=== PATIENT | male | born 1935 | race Caucasian/White ===

== ENCOUNTER → 2018-03-01 14:36 | Outpatient (CLI) | payer MEDICARE, OTHER, SELFPAY | PROVIDERS: PCP Internal Medicine; Visit Provider Physician Assistant | DX: R30.0 Dysuria (principal) | CPT/HCPCS: 87077; 87086; 87186 ==

== ENCOUNTER → 2018-03-13 12:15 | Outpatient (CLI) | payer MEDICARE, OTHER, SELFPAY ==
--- NOTE | 2018-03-13 | DI.RAD.S_ITS ---
PROCEDURE: XR CHEST 2V INDICATIONS: SOB TECHNIQUE: 2 views of the chest were acquired. COMPARISON: [facility], CHEST 2 VIEW, 05/09/2014, 13:17. [facility], CHEST 1 VIEW, 01/20/2009, 9:41. FINDINGS: Surgical changes and devices: Pacemaking device and dual chamber leads appear normal. Lungs and pleura: No pleural effusions or pneumothorax. Lungs are edematous, with a slight subpulmonic left effusion. Mediastinum: Mediastinal contours are normal. Heart size is at the upper limits of normal. Bones and chest wall: No suspicious bony abnormalities. Soft tissues appear unremarkable. IMPRESSION: Pacemaking device and dual chamber leads appear normal. Generalized pulmonary edema pattern, slight subpulmonic left effusion. Heart size at the upper limits of normal. Please note that atypical pneumonia also could produce this appearance. Dictated by: Nikos Padron M.D. on 03/13/2018 at 12:32 Approved by: Nikos Padron M.D. on 03/13/2018 at 12:33
[2018-03-13 15:08] LABS: Alanine Aminotransferase 40 IU/L (21-72); Albumin 3.8 g/dL (3.5-5.0); Albumin Globulin Ratio 1.4 (1.0-2.8); Alkaline Phosphatase 68 U/L (38-126); Aspartate Aminotransferase 31 IU/L (17-59); BUN Creatinine Ratio 24.6 (6-22); Bilirubin Total 0.7 mg/dL (0.2-1.3); Blood Urea Nitrogen 32 mg/dL (9-20); Calcium 10.1 mg/dL (8.4-10.2); Carbon Dioxide 23 mmol/L (22-32); Chloride 97 mmol/L (98-107); Estimated Glomerular Filt Rate 52.7 mL/min (>60); Globulin 2.8 g/dL (1.7-4.1); Glucose 126 mg/dL (80-110); HEMOLYSIS < 15 (0-50); Potassium 4.7 mmol/L (3.4-5.1); Sodium 133 mmol/L (137-145); Total Protein 6.6 g/dL (6.3-8.2)
== END ==
PROVIDERS: PCP Internal Medicine; Visit Provider Student in an Organized Health Care Education/Training Program
DX: R06.02 Shortness of breath (principal); Z95.0 Presence of cardiac pacemaker
CPT/HCPCS: 71046; 80053; 83880

== ENCOUNTER → 2018-03-17 09:34 | Outpatient (CLI) | payer MEDICARE, OTHER, SELFPAY ==
--- NOTE | 2018-03-17 | DI.ECHO.S_ITS ---
[facility] +---------+ : : [address] : [place] : : : : [id number] : : : : Phone: [phone]+ Echocardiogram Report + + :Name: ANDREW CANCHOLA Study Date: 03/17/2018 Height: 69 in : :[facility] Weight: 155 lb : : Gender: Male BSA: 1.9 m2 : :: 1935 Age: 82 yrs BP: 112/64 mmHg: :Reason For Study: HEART FAILURE : :History: CABG : :Ordering Physician: : :Ry Ash Performed By: Rose Bacon : + + Interpretation Summary The left ventricle is normal in size. The ejection fraction is estimated to be 30-35%. There has been no significant change since the previous study. There is extensive thinning and akinesis of the mid and distal septum, extending to the apex and into the apical portion of the anterior wall. Inferior wall is akinetic as well.This appears unchanged from the previous study. The right ventricle is normal in size and function. There is a pacemaker lead in the right ventricle. There is mild to moderate mitral regurgitation. Compared to the prior echo study, there has been no change in the severity of mitral regurgitation. There is mild to moderate aortic regurgitation. Compared to the prior echo study, there has been no change in the severity of aortic regurgitation. There is moderate to severe tricuspid regurgitation. Compared to the prior echo exam, there has been an increase in TR severity. The right ventricular systolic pressure is estimated at 44 mmHg assuming a right atrial pressure of 15 mm Hg. Compared to the prior echo exam, there has been an increase in the severity of pulmonary hypertension. Procedure: A two-dimensional transthoracic echocardiogram with color flow and Doppler was performed. The study quality was technically adequate. Comparison is made with the echocardiogram of 12/12/2016. The patient has a paced rhythm. Left Ventricle: The left ventricle is normal in size. Left ventricular wall thickness is normal. Proximal septal thickening is noted. There is no thrombus. The ejection fraction is estimated to be 30-35%. There has been no significant change since the previous study. There is extensive thinning and akinesis of the mid and distal septum, extending to the apex and into the apical portion of the anterior wall. Inferior wall is akinetic as well.This appears unchanged from the previous study. Diastolic function could not be accurately assessed due to paced rhythm. Right Ventricle: There is a pacemaker lead in the right ventricle. The right ventricle is normal in size and function. Atria: The left atrium is severely dilated. The left atrium has mildly increased in size since the prior echo exam. The right atrium is mildly dilated. There is no Doppler evidence for an interatrial shunt. Mitral Valve: The mitral valve leaflets are slightly calcified. There is mild mitral annular calcification. There is mild to moderate mitral regurgitation. Compared to the prior echo study, there has been no change in the severity of mitral regurgitation. Aortic Valve: The aortic valve is trileaflet. The aortic valve is slightly calcified. There is no aortic valve stenosis. There is mild to moderate aortic regurgitation. Compared to the prior echo study, there has been no change in the severity of aortic regurgitation. Tricuspid Valve: Tricuspid leaflets are thickened. There is moderate to severe tricuspid regurgitation. The right ventricular systolic pressure is estimated at 44 mmHg assuming a right atrial pressure of 15 mm Hg. Compared to the prior echo exam, there has been an increase in TR severity. Compared to the prior echo exam, there has been an increase in the severity of pulmonary hypertension. Pulmonic Valve: The pulmonic valve is not well visualized. There is trace pulmonic regurgitation. Great Vessels: The aortic root is normal size. The ascending aorta is mildly enlarged. The aortic arch is normal in size. The IVC is dilated (diameter is greater than 2.1 cm) yet it collapses greater than 50% with a sniff. This suggests a right atrial pressure of 8 mm Hg. Pericardium/ Pleura There is no pericardial effusion. MMode/2D Measurements & Calculations LVIDd: 4.6 cm LVOT diam: 2.1 cm LVIDs: 3.9 cm Ao root diam: 3.7 cm FS: 14.5 % Aortic Jxn: 3.0 cm EPSS: 1.1 cm asc Aorta Diam: 3.5 cm IVSd: 1.0 cm Ao Arch Diam (Prox Trans): 2.3 cm LVPWd: 0.93 cm LV kennedy. diameter/BSA (cm/m^2): 2.5 LV sys. diameter/BSA (cm/m^2): 2.1 LA A2 area: 25.9 cm2 RA long axis: 5.0 cm LA A4 area: 26.2 cm2 RA area: 20.6 cm2 LA length (vol): 6.1 cm RA vol: 72.9 ml LA vol: 93.9 ml RA : 39.3 ml/m2 LA vol index: 50.6 ml/m2 IVC diam: 2.2 cm RVD1 (basal): 3.6 cm RVD2 (mid): 2.5 cm TAPSE: 1.8 cm Doppler Measurements & Calculations Ao V2 max: 121.7 cm/sec LVOT Max Josh: 72.9 cm/sec Ao V2 mean: 84.2 cm/sec LV V1 max P.1 mmHg Ao max P.9 mmHg LV V1 VTI: 13.2 cm Ao mean P.2 mmHg MADAY(I,D): 2.0 cm2 Ao V2 VTI: 21.5 cm MADAY(V,D): 2.0 cm2 sev ratio: 0.61 MADAY indexed to BSA (cm^2/m^2): 1.1 AI P1/2t: 393.7 msec AI dec slope: 217.9 cm/sec2 MV E max josh: 98.0 cm/sec TR max josh: 300.3 cm/sec MV dec time: 0.14 sec TR max P.1 mmHg MV P1/2t: 40.6 msec PA V2 max: 53.8 cm/sec PA V2 mean: 29.4 cm/sec PA mean P.41 mmHg PA Accel Time: 0.08 sec MV P1/2t max josh: 99.1 cm/sec MR PISA radius: 0.50 cm MVA(P1/2t): 5.4 cm2 Reading Physician:PM
== END ==
PROVIDERS: PCP Internal Medicine; Visit Provider Internal Medicine
DX: I08.3 Combined rheumatic disorders of mitral, aortic and tricuspid valves (principal); I50.9 Heart failure, unspecified; Z95.1 Presence of aortocoronary bypass graft; Z95.0 Presence of cardiac pacemaker; I27.20 Pulmonary hypertension, unspecified
CPT/HCPCS: 93306

== ENCOUNTER 2019-01-25 14:00 | Outpatient (RCR) | payer MEDICARE, OTHER, SELFPAY | END 2019-02-01 09:49 | LOC: CAR 14:00 | PROVIDERS: PCP Internal Medicine; Visit Provider Internal Medicine | DX: I50.22 Chronic systolic (congestive) heart failure (principal) | CPT/HCPCS: 93798 ==

== ENCOUNTER → 2020-05-04 15:35 | Outpatient (ROUT) | payer MEDICARE, OTHER, SELFPAY ==
[2020-05-04 16:34] LABS: BUN Creatinine Ratio 21.9 (6-22); Blood Urea Nitrogen 42 mg/dL (9-20); Calcium 10.3 mg/dL (8.4-10.2); Carbon Dioxide 31 mmol/L (22-32); Chloride 96 mmol/L (98-107); Estimated Glomerular Filt Rate 33.5 mL/min (>60); Glucose 95 mg/dL (80-110); HEMOLYSIS < 15 (0-50); Potassium 4.4 mmol/L (3.4-5.1); Sodium 134 mmol/L (137-145)
[2020-05-05 16:31] LABS: Parathyroid Hormone Int 27 pg/mL (15-65)
== END ==
PROVIDERS: PCP Internal Medicine; Visit Provider Internal Medicine
DX: N18.9 Chronic kidney disease, unspecified (principal)
CPT/HCPCS: 80048; 83970

== ENCOUNTER → 2020-06-21 18:40 | Outpatient (ROUT) | payer MEDICARE, OTHER, SELFPAY | PROVIDERS: PCP Internal Medicine; Visit Provider Family Medicine | DX: R30.0 Dysuria (principal); N30.00 Acute cystitis without hematuria | CPT/HCPCS: 87077; 87086; 87186 ==

== ENCOUNTER → 2020-12-26 18:58 | Outpatient (ROUT) | payer MEDICARE, SELFPAY ==
[2020-12-26 22:19] LABS: Clostridium Difficile Tox PCR Negative for C. diff
== END ==
PROVIDERS: Visit Provider Internal Medicine
DX: R19.7 Diarrhea, unspecified (principal)
CPT/HCPCS: 87045; 87147; 87177; 87493; 87899

== ENCOUNTER → 2021-09-11 15:51 | Outpatient (CLI) | payer OTHER, SELFPAY ==
--- NOTE | 2021-09-11 16:27 | DI.ECHO.S_ITS ---
:[facility] ReadingLocation: Weight: 150 lb : : Gender: Male BSA: 1.8 m2 : :: 1935 Age: 86 yrs BP: 127/76 mmHg: :Reason For Study: SYSTOLIC/DIASTOLIC HEART FAILURE : :Ordering Physician: REGINALDO : :SILVINO Performed By: Inge Marinelli : :Referring: SILVINO HAIR : + + Interpretation Summary The left ventricle is normal in size and wall thickness. The ejection fraction is estimated to be 30-35%. There is septal thinning and akinesis from base to apical. There is severe inferior wall hypokinesis. No signifcant change from last exam. The right ventricle is normal in size and function. The right ventricular systolic pressure is estimated to be at least 46 mmHg based on an estimated right atrial pressure of 8 mm Hg. There is moderate tricuspid regurgitation. There is mild aortic regurgitation. There is trace to mild mitral regurgitation. overall severity of valvular disease has slightly improved or remianed the same at the very least, when compared to the 2018 exam. The left atrium is severely dilated. Procedure: A two-dimensional transthoracic echocardiogram with color flow and Doppler was performed. The study quality was technically adequate. Comparison is made with the echocardiogram of 03/17/2018. The patient has a paced rhythm. The heart rate ranged between 80 bpm during the study. Left Ventricle: The left ventricle is normal in size and wall thickness. The ejection fraction is estimated to be 30-35%. There is septal thinning and akinesis from base to apical. There is severe inferior wall hypokinesis. No signifcant change from last exam. Diastolic function could not be accurately assessed due to paced rhythm. Right Ventricle: The right ventricle is normal in size and function. Atria: The left atrium is severely dilated. The right atrium is mildly dilated. There is no Doppler evidence for an interatrial shunt. Mitral Valve: The mitral valve leaflets appear mildly thickened, but open well. There is trace mitral regurgitation. Aortic Valve: The aortic valve is trileaflet. The aortic valve is mildly calcified. There is no aortic valve stenosis. There is mild aortic regurgitation. Tricuspid Valve: The tricuspid valve leaflets are thin and pliable. The right ventricular systolic pressure is estimated to be at least 46 mmHg based on an estimated right atrial pressure of 8 mm Hg. There is moderate tricuspid regurgitation. Pulmonic Valve: The pulmonic valve leaflets are thin and pliable; valve motion is normal. There is a trace or physiologic amount of pulmonic regurgitation. Great Vessels: The aortic root is normal size. The ascending aorta could not be visualized. The IVC is dilated (diameter is greater than 2.1 cm) yet it collapses greater than 50% with a sniff. This suggests a right atrial pressure of 8 mm Hg. Pericardium/ Pleura There is no pericardial effusion. There is no pleural effusion. MMode/2D Measurements & Calculations LVIDd: 4.6 cm LVOT diam: 2.1 cm LVIDs: 3.0 cm Ao root diam: 3.5 cm FS: 33.8 % IVSd: 1.0 cm LVPWd: 0.90 cm LV kennedy. diameter/BSA (cm/m^2): 2.5 LV sys. diameter/BSA (cm/m^2): 1.6 LA A2 area: 30.2 cm2 RA long axis: 5.3 cm LA A4 area: 26.1 cm2 RA area: 19.8 cm2 LA length (vol): 7.1 cm RA vol: 63.1 ml LA vol: 94.6 ml RA : 34.5 ml/m2 LA vol index: 51.8 ml/m2 IVC diam: 2.1 cm RVD1 (basal): 3.5 cm TAPSE: 1.7 cm Doppler Measurements & Calculations Ao V2 max: 137.3 cm/sec LVOT Max Josh: 62.6 cm/sec Ao V2 mean: 100.2 cm/sec LV V1 max P.6 mmHg Ao max P.5 mmHg LV V1 VTI: 11.7 cm Ao mean P.4 mmHg MADAY(I,D): 1.7 cm2 Ao V2 VTI: 24.9 cm MADAY(V,D): 1.6 cm2 sev ratio: 0.47 MADAY indexed to BSA (cm^2/m^2): 0.91 MV E max josh: 89.8 cm/sec TR max josh: 307.0 cm/sec MV A max josh: 0.83 cm/sec TR max P.7 mmHg MV E/A: 107.8 PA pr(Accel): 46.5 mmHg Med Peak E' Josh: 6.8 cm/sec E/E' med: 13.2 Lat Peak E' Josh: 6.7 cm/sec E/E' lat: 13.4 E/e' average: 13.3 MV dec time: 0.22 sec SV(LVOT): 41.5 ml Reading Physician:TONY
== END ==
PROVIDERS: PCP Internal Medicine; Referring Provider Internal Medicine Cardiovascular Disease; Visit Provider Internal Medicine Cardiovascular Disease
DX: I50.42 Chronic combined systolic (congestive) and diastolic (congestive) heart failure (principal); I08.3 Combined rheumatic disorders of mitral, aortic and tricuspid valves
CPT/HCPCS: 93306

== ENCOUNTER 2021-09-11 16:52 | Emergency (ER) | payer OTHER, SELFPAY ==
[2021-09-11 17:04] VITALS: BP 137/62; PULSE 82; RESP 20; TEMP 36.9; O2SAT 96
--- NOTE | 2021-09-11 17:07 | DI.CT.S_ITS ---
PROCEDURE: CT CERVICAL SPINE WO CON INDICATIONS: fall TECHNIQUE: Noncontrast 3 mm thick sections acquired from the skull base to the T4 level. Sagittal and coronal reformats were then constructed. For radiation dose reduction, the following was used: automated exposure control, adjustment of mA and/or kV according to patient size. COMPARISON: None. FINDINGS: Image quality: Excellent. Bones: Vertebral body height is preserved. Multilevel degenerative disc space narrowing and hypertrophic facet joints are present in the mid cervical spine resulting in grade 1 and degenerative anterior spondylolisthesis at C4-5. There is reversal normal cervical lordosis. No evidence of fracture or traumatic malalignment. Degenerative moderate central stenosis at C3-4 and bilateral foraminal stenosis at C6-7 Incidental note is made of chronic enlargement of the right T2-3 neural foramen measuring up to 1.2 cm in diameter Soft tissues: Prevertebral soft tissues are normal in thickness. No paravertebral hematomas. No apical pneumothoraces. IMPRESSION: 1. No evidence of fracture or traumatic malalignment 2. 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 Incidental right T2-3 foraminal enlargement. Differential would include nerve sheath tumor versus large perineural cyst. Consider follow-up nonemergent MRI with contrast Approved by: Mark Kent M.D. on 09/11/2021 at 16:43
--- NOTE | 2021-09-11 17:07 | DI.CT.S_ITS ---
PROCEDURE: CT HEAD/BRAIN WO CON INDICATIONS: fall TECHNIQUE: Helical axial CT of the brain was obtained without contrast and reformatted in multiple planes. Radiation dose reduction was achieved utilizing automated exposure control and/or adjustment of the dose parameters according to patient's size COMPARISON: None. FINDINGS: Image quality: Excellent. CSF spaces: Basal cisterns are patent. No extra-axial fluid collections. Ventricles are normal in size and shape. Brain: No midline shift. No intracranial masses or hemorrhage. Hanna-white matter interface is normal. Moderate cerebral and cerebellar volume loss with multifocal white matter chronic ischemic change noted. Moderate calcified atherosclerotic plaque noted involving the cavernous portions of both internal carotid arteries. Skull and face: Calvarium and visualized facial bones are intact, without suspicious lesions. Sinuses: Complete opacification and partially visualized right maxillary sinus with wall thickening and bulging of sinus contents into the nasal vault. IMPRESSION: 1. Atrophy and chronic ischemic change without acute hemorrhage or mass effect. 2. 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 Differential includes mucoscele sinonasal polyposis. Consider nonemergent CT sinus Approved by: Mark Kent M.D. on 09/11/2021 at 16:48
== END 2021-09-11 19:29 | disposition left against medical advice (07) ==
PROVIDERS: Emergency Provider Emergency Medicine; PCP Internal Medicine
DX: Z53.21 Procedure and treatment not carried out due to patient leaving prior to being seen by health care provider (principal)
CPT/HCPCS: 70450; 72125; 93306; 99283

== ENCOUNTER → 2021-09-23 16:08 | Outpatient (CLI) | payer MEDICARE, SELFPAY ==
[2021-09-23 17:21] LABS: COVID19 -Nasal RAPID Negative (Negative)
== END ==
PROVIDERS: PCP Internal Medicine; Visit Provider Nurse Practitioner Family
DX: Z20.822 Contact with and (suspected) exposure to COVID-19 (principal)
CPT/HCPCS: 87635

== ENCOUNTER → 2021-09-23 16:27 | Outpatient (CLI) | payer OTHER, SELFPAY ==
--- NOTE | 2021-09-23 16:28 | DI.RAD.S_ITS ---
PROCEDURE: XR CHEST 2V INDICATIONS: cough TECHNIQUE: 2 views of the chest were acquired. COMPARISON: [facility], CR, XR CHEST 2V, 03/13/2018, 11:54. FINDINGS: Surgical changes and devices: Left-sided cardiac pacer device is in place. Lungs and pleura: Diffuse interstitial prominence. Mild blunting of the bilateral costophrenic angles likely representing small pleural effusions. Suggestion of mild pulmonary congestion. No focal consolidations. No pneumothorax. Mediastinum: Mediastinal contours are stable. Heart size is enlarged. Bones and chest wall: No suspicious bony abnormalities. Soft tissues appear unremarkable. IMPRESSION: Cardiomegaly with findings suggestive of pulmonary edema/CHF. Concurrent infectious/inflammatory process not excluded if clinically appropriate. No focal consolidation seen. Dictated by: Arron Roberson M.D. on 09/23/2021 at 16:03 Approved by: Arron Roberson M.D. on 09/23/2021 at 16:05
== END ==
PROVIDERS: PCP Internal Medicine; Referring Provider Nurse Practitioner Family; Visit Provider Nurse Practitioner Family
DX: R05.9 Cough, unspecified (principal); I51.7 Cardiomegaly; Z20.822 Contact with and (suspected) exposure to COVID-19
CPT/HCPCS: 71046; 87635

== ENCOUNTER 2021-09-25 10:57 | Emergency (ER) | payer OTHER, SELFPAY ==
[2021-09-25] VITALS (9 sets, daily range): BP systolic 134; BP diastolic 60–64; PULSE 79–81; RESP 18–31; TEMP 36.9; O2SAT 96–98; BMI 23.3
--- NOTE | 2021-09-25 11:14 | DI.RAD.S_ITS ---
PROCEDURE: XR CHEST 1V INDICATIONS: short of breath TECHNIQUE: One view of the chest was acquired. COMPARISON: [facility], CR, XR CHEST 2V, 09/23/2021, 16:24. FINDINGS: Surgical changes and devices: Cardiac defibrillator is unchanged. Lungs and pleura: There is mild diffuse interstitial prominence. No pleural effusion. Mediastinum: Mediastinal contours appear normal. Heart size is markedly enlarged, as before. Bones and chest wall: No suspicious bony lesions. Overlying soft tissues appear unremarkable. IMPRESSION: Mild interstitial prominence and cardiomegaly suggesting fluid overload. Dictated by: Estrella Aguila M.D. on 09/25/2021 at 12:04 Approved by: Estrella Aguila M.D. on 09/25/2021 at 12:04
[2021-09-25 11:46] LABS: Add Manual Diff / Slide Review NO; Basophils Absolute Auto 0 /uL (0-100); Basophils Percent Auto 0.4 % (0-2); Eosinophils Absolute Auto 100 /uL (0-450); Hematocrit 34.8 % (41-53); Hemoglobin 11.7 g/dL (13.5-17.5); Lymphocytes Absolute Auto 800 /uL (1100-4500); Lymphocytes Percent Auto 13.3 % (25-40); Mean Corpuscular HGB Conc 33.6 % (30-36); Mean Corpuscular Volume 95.3 fL (80-100); Monocytes Absolute Auto 1200 /uL (0-900); Monocytes Percent Auto 21.1 % (3-14); Neutrophils Absolute Auto 3700 /uL (1500-7000); Neutrophils Percent Auto 64.2 % (50-75); Platelet Count 226 X10^3/uL (150-400); Red Blood Cell Count 3.65 X10^6/uL (4.5-5.9); Red Cell Distribution Width 13.9 % (11.6-14.8); White Blood Cell Count 5.7 X10^3/uL (4.5-11.0)
--- NOTE | 2021-09-25 11:49 | ED_ITS ---
HPI - Chest Pain General Chief Complaint: Chest Pain Stated Complaint: Bad cough, has congestive heart failure Time Seen by Provider: 09/25/21 11:07 Source: patient and family Mode of arrival: Family Vehicle Limitations: no limitations History of Present Illness HPI narrative: Patient is an 86-year-old male with history of atrial fibrillation on Eliquis presenting today with shortness of breath and upper respiratory symptoms. He has had cough and runny nose for about 5 days. He was seen at the walk-in clinic 2 days ago tested for COVID and has chest x-ray which did show congestive heart failure and his COVID was negative. states that he actually seems to be doing better but wanted further evaluation for the congestive heart failure which he says he does not have. He tries to lay down at night to sleep eat coughs. He has some shortness of breath with exertion. He does not have any chest pain or palpitations. No fever or chills. Related Data Home Medications Medication Instructions Recorded Confirmed ASPIRIN (Aspirin *) 81 mg PO Q DAY #0 01/20/09 09/23/21 [MULTI VIT.] Q DAY #0 01/20/09 09/23/21 losartan 50 mg tablet 50 mg PO QDAY #0 01/01/17 09/23/21 Curcumonoids PO 10/13/20 09/23/21 Icarin PO 10/13/20 09/23/21 S Miraforta PO 10/13/20 09/23/21 allopurinol 100 mg tablet 100 mg PO DAILY 10/13/20 09/23/21 apixaban 2.5 mg tablet (Eliquis) 2.5 mg PO BID 10/13/20 09/23/21 ascorbic acid (vitamin C) 1,000 mg 1 g PO BID tab 10/13/20 09/23/21 tablet atorvastatin 20 mg tablet 20 mg PO DAILY 10/13/20 09/23/21 carvedilol 12.5 mg tablet 12.5 mg PO BID 10/13/20 09/23/21 cholecalciferol (vitamin D3) 125 125 mcg PO DAILY 10/13/20 09/23/21 mcg (5,000 unit) capsule clindamycin HCl 300 mg capsule 300 mg PO Q6H 10/13/20 09/23/21 coenzyme Q10 100 mg capsule 100 mg PO DAILY 10/13/20 09/23/21 (CoQ-10) hydroxychloroquine 200 mg tablet 200 mg PO DAILY 10/13/20 09/23/21 isosorbide dinitrate 30 mg tablet 30 mg PO DAILY tab 10/13/20 09/23/21 letrozole 2.5 mg tablet 2.5 mg PO DAILY 10/13/20 09/23/21 lipid controller PO 10/13/20 09/23/21 mecobalamin (vitamin B12) 10,000 mcg SUBCUT 10/13/20 09/23/21 mcg solution for injection mecobalamin (vitamin B12) 5,000 100 mcg PO DAILY ea 10/13/20 09/23/21 mcg lozenge metformin 500 mg tablet 500 mg PO DAILY 10/13/20 09/23/21 omega-3 fatty acids 1,000 mg 1,000 mg PO DAILY 10/13/20 09/23/21 capsule (Fish Oil Concentrate) prasterone (dhea) 25 mg capsule 25 mg PO .weekly cap 10/13/20 09/23/21 (DHEA) probenecid 500 mg tablet 500 mg PO BID 10/13/20 09/23/21 resveratrol 100 mg capsule mg PO 10/13/20 09/23/21 spironolactone 25 mg tablet 25 mg PO DAILY 10/13/20 09/23/21 terbinafine HCl 250 mg tablet 250 mg PO DAILY 10/13/20 09/23/21 testosterone 50 mg/5 gram (1 %) 50 mg TRANSDERMAL DAILY 10/13/20 09/23/21 transdermal gel thyroid 60 mg tablet mg PO 10/13/20 09/23/21 torsemide 20 mg tablet 20 mg PO DAILY 10/13/20 09/23/21 Previous Rx's Medication Instructions Recorded finasteride 5 mg tablet 5 mg PO DAILY #90 tab 10/17/20 tamsulosin 0.4 mg capsule 0.4 mg PO BEDTIME #90 cap 04/24/21 benzonatate 100 mg capsule 100 mg PO BID PRN #20 cap 09/23/21 Allergies Allergy/AdvReac Type Severity Reaction Status Date / Time dextran 40 [DEXTRAN 40] Allergy Unknown Verified 09/25/21 11:22 morphine [MORPHINE] Allergy Unknown Verified 09/25/21 11:22 Review of Systems Review of Systems Narrative: GENERAL: Denies chills, fatigue, malaise, fever, sweats, travel HEENT: Denies sinus pain, ear pain, sore throat, difficulty swallowing, neck pain RESPIRATORY: See HPI CARDIOVASCULAR: See HPI GASTROINTESTINAL: Denies nausea, vomiting, abdominal pain, diarrhea, constipation, melena. : Denies dysuria, frequency, incontinence, hematuria, urinary retention, flank pain. MUSCULOSKELETAL: Denies weakness, joint pain, or bony pain SKIN: No rash, no erythema, no pruritus NEUROLOGIC: Denies weakness, dizziness, headache, numbness, change in speech, confusion PSYCHIATRIC: No concerning psychosocial issues. 12 point review of systems is negative except for those stated above and HPI Patient History Medical History (Updated 09/25/21 @ 14:31 by Meg Vieira DO) BPH (benign prostatic hyperplasia) BPH w urinary obs/LUTS Congestive heart failure Coronary heart disease Elevated PSA Gout Heart attack Hypertension Surgical History (System 09/24/21 @ 07:34 by Aminta Cates) History of back surgery History of circumcision History of permanent cardiac pacemaker placement History of prostate biopsy Family History Father Prostate cancer Coronary artery disease Social History (System 09/24/21 @ 07:34 by Aminta Cates) marital status: number of children: 3 occupational status: previously employed Smoking Status: Never smoker alcohol intake: current substance use type: does not use caffeine: Yes Smoking Status: Never smoker alcohol intake frequency: 0-2 drinks per day Substance Use Type: does not use Exam Initial Vital Signs Initial Vital Signs: Vital Signs Pulse Rate 80 09/25/21 11:10 Respiratory Rate 22 09/25/21 11:10 Blood Pressure 134/64 09/25/21 11:10 Pulse Oximetry 98 09/25/21 11:10 GENERAL: Alert 86-year-old male in no acute] distress. HEENT: Head atraumatic,EOMI, pupils reactive, face symmetric, [moist] mucous membranes CARDIOVASCULAR: Regular rate and rhythm without murmurs, rubs or gallops. RESPIRATORY: Slightly decreased bilaterally speaks in full sentences without any difficulty ABDOMEN: Soft, nontender. Normoactive bowel sounds all 4 quadrants. No guarding or rebound. EXTREMITIES: Normal range of motion, no clubbing or edema. Neurovascularly intact NEUROLOGICAL: Alert and oriented x4.Normal gait and speech. SKIN: Warm, dry, no laceration, no petechiae, no rashes or lesions. Course Orders Ordered: ED Orders 09/25/21 11:13 Consult to Respiratory Therapy Evaluate & Treat 09/25/21 11:14 XR chest 1V Stat 09/25/21 11:16 EKG-12 Lead Stat 09/25/21 11:34 Complete Blood Count AUTO DIFF Stat Comprehensive Metabolic Panel Stat Lactate (Lactic Acid) Stat Magnesium Stat NT-proBNP (BNP-Adult 18+) Stat Partial Thromboplastin Time Stat Prothrombin Time INR Stat Troponin & CK Cardiac Panel Stat 09/25/21 13:30 Trop I [Troponin I] Stat 09/25/21 13:38 Urine Microscopic Stat 09/25/21 13:40 EKG-12 Lead Routine EKG-12 Lead Routine Discontinued Medications Furosemide (Furosemide 40 Mg/4 Ml Vial) 40 mg IV NOW ONE Stop: 09/25/21 12:28 Last Admin: 09/25/21 12:34 Dose: 40 mg Documented by: LEONARDO Vital Signs Vital signs: Vital Signs - 8 hr 09/25/21 11:30 09/25/21 12:00 09/25/21 12:30 Pulse Rate 80 80 79 Respiratory Rate 20 Blood Pressure Pulse Oximetry 97 96 98 09/25/21 13:00 09/25/21 13:30 09/25/21 14:00 Pulse Rate 80 79 80 Respiratory Rate 31 H 30 H 21 Blood Pressure Pulse Oximetry 97 97 97 09/25/21 14:30 Pulse Rate 80 Respiratory Rate 30 H Blood Pressure 134/60 Pulse Oximetry 98 MDM - Chest Pain Lab Data Result diagrams: 09/25/21 11:34 09/25/21 11:34 Labs: Lab Results 09/25/21 09/25/21 09/25/21 Range/Units 11:34 11:34 11:34 WBC 5.7 (4.5-11.0) X10^3/uL RBC 3.65 L (4.5-5.9) X10^6/uL Hgb 11.7 L (13.5-17.5) g/dL Hct 34.8 L (41-53) % MCV 95.3 (80-100) fL MCH 32.0 (26-34) PG MCHC 33.6 (30-36) % RDW 13.9 (11.6-14.8) % Plt Count 226 (150-400) X10^3/uL Neut % (Auto) 64.2 (50-75) % Lymph % (Auto) 13.3 L (25-40) % Lincoln % (Auto) 21.1 H (3-14) % Eos % (Auto) 1.0 L (2-4) % Baso % (Auto) 0.4 (0-2) % Neut # (Auto) 3700 (0447-7529) /uL Lymph # (Auto) 800 L (7535-7477) /uL Lincoln # (Auto) 1200 H (0-900) /uL Eos # (Auto) 100 (0-450) /uL Baso # (Auto) 0 (0-100) /uL PT 18.0 H (10.1-12.7) SECONDS INR 1.6 H (0.9-1.3) APTT 30 (26.4-36.2) SECONDS Sodium 133 L (137-145) mmol/L Potassium 4.0 (3.4-5.1) mmol/L Chloride 98 (98-107) mmol/L Carbon Dioxide 26 (22-32) mmol/L BUN 48 H (9-20) mg/dL Creatinine 1.65 H (0.66-1.25) mg/dL Estimated GFR 39.7 L (>60) mL/min BUN/Creatinine Ratio 29.1 H (6-22) Glucose 107 (80-110) mg/dL Lactate (0.7-2.1) mmol/L Calcium 10.2 (8.4-10.2) mg/dL Magnesium 2.6 H (1.6-2.3) mg/dL Total Bilirubin 0.5 (0.2-1.3) mg/dL AST 36 (17-59) IU/L ALT 23 (<50) IU/L Alkaline Phosphatase 105 (38-126) U/L Total Creatine Kinase 267 H (55-170) U/L CK-MB (CK-2) 1.65 (<2.37) ng/mL CK-MB (CK-2) Rel Index 0.6 L (1.5-5.0) % Troponin I 0.038 H (0.01-0.034) ng/mL NT-Pro-B Natriuret Pep 7170 H (<450) pg/mL Total Protein 8.0 (6.3-8.2) g/dL Albumin 4.4 (3.5-5.0) g/dL Globulin 3.6 (1.7-4.1) g/dL Albumin/Globulin Ratio 1.2 (1.0-2.8) Urine RBC (0-5/HPF) Urine WBC (0-5/HPF) Urine Bacteria (None) Hyaline Casts (None) Ur Culture Indicated? 09/25/21 09/25/21 09/25/21 Range/Units 11:34 13:30 13:38 WBC (4.5-11.0) X10^3/uL RBC (4.5-5.9) X10^6/uL Hgb (13.5-17.5) g/dL Hct (41-53) % MCV (80-100) fL MCH (26-34) PG MCHC (30-36) % RDW (11.6-14.8) % Plt Count (150-400) X10^3/uL Neut % (Auto) (50-75) % Lymph % (Auto) (25-40) % Lincoln % (Auto) (3-14) % Eos % (Auto) (2-4) % Baso % (Auto) (0-2) % Neut # (Auto) (8789-3592) /uL Lymph # (Auto) (5007-0507) /uL Lincoln # (Auto) (0-900) /uL Eos # (Auto) (0-450) /uL Baso # (Auto) (0-100) /uL PT (10.1-12.7) SECONDS INR (0.9-1.3) APTT (26.4-36.2) SECONDS Sodium (137-145) mmol/L Potassium (3.4-5.1) mmol/L Chloride (98-107) mmol/L Carbon Dioxide (22-32) mmol/L BUN (9-20) mg/dL Creatinine (0.66-1.25) mg/dL Estimated GFR (>60) mL/min BUN/Creatinine Ratio (6-22) Glucose (80-110) mg/dL Lactate 1.7 (0.7-2.1) mmol/L Calcium (8.4-10.2) mg/dL Magnesium (1.6-2.3) mg/dL Total Bilirubin (0.2-1.3) mg/dL AST (17-59) IU/L ALT (<50) IU/L Alkaline Phosphatase (38-126) U/L Total Creatine Kinase (55-170) U/L CK-MB (CK-2) (<2.37) ng/mL CK-MB (CK-2) Rel Index (1.5-5.0) % Troponin I 0.032 (0.01-0.034) ng/mL NT-Pro-B Natriuret Pep (<450) pg/mL Total Protein (6.3-8.2) g/dL Albumin (3.5-5.0) g/dL Globulin (1.7-4.1) g/dL Albumin/Globulin Ratio (1.0-2.8) Urine RBC None seen (0-5/HPF) Urine WBC 0-1/hpf (0-5/HPF) Urine Bacteria Few (2-10) H (None) Hyaline Casts 1-5/lpf (None) Ur Culture Indicated? Cult not indicated Urine Dip Bedside Urine Glucose Negative Bedside Urine Bilirubin - Negative Bedside Urine Ketone - Negative Urine Specific Uledi 1.015 Bedside Urine Occult Blood - Negative Bedside Urine pH 6.0 Bedside Urine Protein + 30 Bedside Urine Urobilinogen - Negative Bedside Urine Nitrite - Negative Bedside Urine Leukocytes - Negative Esterase Imaging Data Chest x-ray: Radiologist's Impression: PROCEDURE:? XR CHEST 1V ? INDICATIONS:? short of breath ? TECHNIQUE:? One view of the chest was acquired.? ? COMPARISON:? [facility], CR, XR CHEST 2V, 09/23/2021, 16:24. ? FINDINGS:? ? Surgical changes and devices:? Cardiac defibrillator is unchanged. ? Lungs and pleura:? There is mild diffuse interstitial prominence.? No pleural effusion. ? Mediastinum:? Mediastinal contours appear normal.? Heart size is markedly enlarged, as before. ? Bones and chest wall:? No suspicious bony lesions.? Overlying soft tissues appear unremarkable.? ? IMPRESSION:? Mild interstitial prominence and cardiomegaly suggesting fluid overload. ? ? Dictated by: Estrella Aguila M.D. on 09/25/2021 at 12:04 ? ? ECG Data Interpretation: Paced rhythm rate radial no ST changes pacemaker new since last EKG 2014 EKG 2. Paced rhythm rate [address] changes no changes from prior MDM Narrative Medical decision making narrative: Patient does have symptoms consistent with congestive heart failure he is found to have elevated BNP of 7000. There is no prior to compare. He states that he does take torsemide twice a day and he does adjusted as needed. Last echocardiogram was 09/11/2021 which does show an EF of 30-35%. He is given 1 dose of Lasix in the ED has urinated once. Troponin is a decreasing no EKG changes. At this time no need for admission they do recommend doubling his torsemide for a few days for diuresis and having close follow-up. Had upper respiratory like symptoms which seems to have improved. He is also on anticoagulation so this is unlikely to be pulmonary embolism. A time symptoms most consistent with congestive heart failure with history of such. At this time no need for admission and outpatient follow-up Discharge Plan Departure Patient Disposition: Home Clinical Impression: Congestive heart failure (CHF) Instructions: Heart Failure Activity Restrictions/Additional Instructions: *You have been diagnosed with congestive heart failure *What to do: At this time please follow-up with your rehabilitation aide/scheduler and primary care provider. He may require an outpatient echocardiogram *Continue to take medications as directed Double your torsemide for 3 days, then resume your normal dose *Follow up with your primary care provider in 2-3 days or call [phone] *Return to ER if you should have increasing shortness of breath, chest pain or any new, worsening or concerning symptoms Prescriptions: No Action benzonatate 100 mg capsule 100 mg PO BID PRN (Reason: cough) Qty: 20 0RF ASPIRIN (Aspirin *) 81 mg PO Q DAY Qty: 0 0RF [MULTI VIT.] Q DAY Qty: 0 0RF losartan 50 MG tablet 50 mg PO QDAY Qty: 0 0RF isosorbide dinitrate 30 mg tablet 30 mg PO DAILY 0RF Rx Instructions: allow nitrate-free interval of 12-14 hrs per 24-hr period testosterone 50 mg/5 gram (1 %) gel 50 mg transdermal DAILY 0RF torsemide 20 mg tablet 20 mg PO DAILY 0RF spironolactone 25 mg tablet 25 mg PO DAILY 0RF Eliquis 2.5 mg tablet 2.5 mg PO BID 0RF carvedilol 12.5 mg tablet 12.5 mg PO BID 0RF Rx Instructions: must administer with a meal/food mecobalamin (vitamin B12) 10,000 mcg recon soln SUBCUT 0RF atorvastatin 20 mg tablet 20 mg PO DAILY 0RF letrozole 2.5 mg tablet 2.5 mg PO DAILY 0RF thyroid 60 mg tablet PO 0RF probenecid 500 mg tablet 500 mg PO BID 0RF terbinafine HCl 250 mg tablet 250 mg PO DAILY 0RF metformin 500 mg tablet 500 mg PO DAILY 0RF allopurinol 100 mg tablet 100 mg PO DAILY 0RF hydroxychloroquine 200 mg tablet 200 mg PO DAILY 0RF clindamycin HCl 300 mg capsule 300 mg PO Q6H 0RF lipid controller PO 0RF prasterone (dhea) [DHEA] 25 mg capsule 25 mg PO .weekly 0RF ascorbic acid (vitamin C) 1,000 mg tablet 1 g PO BID 0RF cholecalciferol (vitamin D3) 125 mcg (5,000 unit) capsule 125 mcg PO DAILY 0RF coenzyme Q10 [CoQ-10] 100 mg capsule 100 mg PO DAILY 0RF mecobalamin (vitamin B12) 5,000 mcg lozenge 100 mcg PO DAILY 0RF Rx Instructions: allow to dissolve in mouth OR may chew lightly before swallowing omega-3 fatty acids [Fish Oil Concentrate] 1,000 mg capsule 1,000 mg PO DAILY 0RF Icarin PO 0RF Curcumonoids PO 0RF resveratrol 100 mg capsule PO 0RF S Miraforta PO 0RF tamsulosin 0.4 mg capsule 0.4 mg PO BEDTIME Qty: 90 1RF finasteride 5 mg tablet 5 mg PO DAILY Qty: 90 3RF Referrals: Ry Ash MD [Primary Care Provider] - Ethan Hernandez MD [Non-Staff] -
[2021-09-25 11:59] LABS: INR 1.6 (0.9-1.3)
[2021-09-25 12:02] LABS: PTT Partial Thromboplastin Tim 30 SECONDS (26.4-36.2)
[2021-09-25 12:11] LABS: Alanine Aminotransferase 23 IU/L (<50); Albumin 4.4 g/dL (3.5-5.0); Albumin Globulin Ratio 1.2 (1.0-2.8); Alkaline Phosphatase 105 U/L (38-126); Aspartate Aminotransferase 36 IU/L (17-59); BUN Creatinine Ratio 29.1 (6-22); Bilirubin Total 0.5 mg/dL (0.2-1.3); Blood Urea Nitrogen 48 mg/dL (9-20); Calcium 10.2 mg/dL (8.4-10.2); Carbon Dioxide 26 mmol/L (22-32); Chloride 98 mmol/L (98-107); Creatine Kinase 267 U/L (55-170); Estimated Glomerular Filt Rate 39.7 mL/min (>60); Globulin 3.6 g/dL (1.7-4.1); Glucose 107 mg/dL (80-110); HEMOLYSIS < 15 (0-50); Magnesium 2.6 mg/dL (1.6-2.3); Sodium 133 mmol/L (137-145)
[2021-09-25 12:12] LABS: Lactate (Lactic Acid) 1.7 mmol/L (0.7-2.1)
[2021-09-25 12:22] LABS: NT-proBNP (BNP-Adult 18+) 7170 pg/mL (<450); Troponin I 0.038 ng/mL (0.01-0.034)
[2021-09-25 12:26] LABS: CKMB % Relative Index 0.6 % (1.5-5.0); Creatine Kinase MB 1.65 ng/mL (<2.37)
[2021-09-25] MEDS: FUROSEMIDE 40 MG/4 ML VIAL IV (12:34)
[2021-09-25 13:57] LABS: Bacteria Urine Few (2-10); Culture Indicated Urine Cult Not Indicated; Hyaline Casts Urine 1-5/LPF; RBC Urine None Seen (0-5/HPF); WBC Urine 0-1/HPF (0-5/HPF)
[2021-09-25 14:17] LABS: Troponin I 0.032 ng/mL (0.01-0.034)
== END 2021-09-25 15:03 | disposition home or self-care (01) ==
PROVIDERS: Emergency Provider Emergency Medicine; PCP Internal Medicine
DX: I11.0 Hypertensive heart disease with heart failure (principal); I50.9 Heart failure, unspecified; Z79.899 Other long term (current) drug therapy; Z79.01 Long term (current) use of anticoagulants
CPT/HCPCS: 36415; 71045; 80053; 81003; 81015; 82550; 82553; 83605; 83735; 83880; 84484; 85025; 85610; 85730; 93005; 96374; 99284; J1940

== ENCOUNTER 2021-09-27 13:46 | Observation (INO) | payer OTHER, SELFPAY ==
[2021-09-27] VITALS (26 sets, daily range): BP systolic 77–122; BP diastolic 47–67; PULSE 79–80; RESP 10–35; TEMP 36.3–36.5; O2SAT 84–100; BMI 21.7
--- NOTE | 2021-09-27 14:01 | DI.RAD.S_ITS ---
PROCEDURE: XR CHEST 1V INDICATIONS: chest pain TECHNIQUE: One view of the chest was acquired. COMPARISON: [facility], CR, XR CHEST 1V, 09/25/2021, 11:40. FINDINGS: Surgical changes and devices: Sternal wires and pacemaker are unchanged. Lungs and pleura: Lungs are clear. No pleural effusions or pneumothorax. Mediastinum: Mediastinal contours appear normal. Heart size is enlarged. Bones and chest wall: No suspicious bony lesions. Overlying soft tissues appear unremarkable. IMPRESSION: No consolidations. Dictated by: Sharonda Romero M.D. on 09/27/2021 at 15:11 Approved by: Sharonda Romero M.D. on 09/27/2021 at 15:12
--- NOTE | 2021-09-27 14:22 | ED.DIZZY ---
HPI - Dizziness General Chief Complaint: Syncope Stated Complaint: Very low BP Time Seen by Provider: 09/27/21 14:20 Source: patient Mode of arrival: Wheelchair History of Present Illness HPI Narrative: Patient is an 86-year-old male history of congestive heart failure EF of 30% presenting today with lightheadedness and dizziness. Actually saw and evaluated patient states ago for increasing shortness of breath and congestive heart failure. Unsure of his dose of torsemide at that time told him to double the dose for 3 days. He apparently was taking 40 mg of torsemide at baseline and increased it to 80 mg twice a day. Today he went to physical therapy where he felt very dizzy lightheaded they checked blood pressure is systolic of 57. Initial blood pressure here in the ED is 77. He said the torsemide is no longer making him urinate, his breathing seems to have improved. Related Data Home Medications Medication Instructions Recorded Confirmed ASPIRIN (Aspirin *) 81 mg PO Q DAY #0 01/20/09 09/23/21 [MULTI VIT.] Q DAY #0 01/20/09 09/23/21 losartan 50 mg tablet 50 mg PO QDAY #0 01/01/17 09/23/21 Curcumonoids PO 10/13/20 09/23/21 Icarin PO 10/13/20 09/23/21 S Miraforta PO 10/13/20 09/23/21 allopurinol 100 mg tablet 100 mg PO DAILY 10/13/20 09/23/21 apixaban 2.5 mg tablet (Eliquis) 2.5 mg PO BID 10/13/20 09/23/21 ascorbic acid (vitamin C) 1,000 mg 1 g PO BID tab 10/13/20 09/23/21 tablet atorvastatin 20 mg tablet 20 mg PO DAILY 10/13/20 09/23/21 carvedilol 12.5 mg tablet 12.5 mg PO BID 10/13/20 09/23/21 cholecalciferol (vitamin D3) 125 125 mcg PO DAILY 10/13/20 09/23/21 mcg (5,000 unit) capsule clindamycin HCl 300 mg capsule 300 mg PO Q6H 10/13/20 09/23/21 coenzyme Q10 100 mg capsule 100 mg PO DAILY 10/13/20 09/23/21 (CoQ-10) hydroxychloroquine 200 mg tablet 200 mg PO DAILY 10/13/20 09/23/21 isosorbide dinitrate 30 mg tablet 30 mg PO DAILY tab 10/13/20 09/23/21 letrozole 2.5 mg tablet 2.5 mg PO DAILY 10/13/20 09/23/21 lipid controller PO 10/13/20 09/23/21 mecobalamin (vitamin B12) 10,000 mcg SUBCUT 10/13/20 09/23/21 mcg solution for injection mecobalamin (vitamin B12) 5,000 100 mcg PO DAILY ea 10/13/20 09/23/21 mcg lozenge metformin 500 mg tablet 500 mg PO DAILY 10/13/20 09/23/21 omega-3 fatty acids 1,000 mg 1,000 mg PO DAILY 10/13/20 09/23/21 capsule (Fish Oil Concentrate) prasterone (dhea) 25 mg capsule 25 mg PO .weekly cap 10/13/20 09/23/21 (DHEA) probenecid 500 mg tablet 500 mg PO BID 10/13/20 09/23/21 resveratrol 100 mg capsule mg PO 10/13/20 09/23/21 spironolactone 25 mg tablet 25 mg PO DAILY 10/13/20 09/23/21 terbinafine HCl 250 mg tablet 250 mg PO DAILY 10/13/20 09/23/21 testosterone 50 mg/5 gram (1 %) 50 mg TRANSDERMAL DAILY 10/13/20 09/23/21 transdermal gel thyroid 60 mg tablet mg PO 10/13/20 09/23/21 torsemide 20 mg tablet 20 mg PO DAILY 10/13/20 09/23/21 Previous Rx's Medication Instructions Recorded finasteride 5 mg tablet 5 mg PO DAILY #90 tab 10/17/20 tamsulosin 0.4 mg capsule 0.4 mg PO BEDTIME #90 cap 04/24/21 benzonatate 100 mg capsule 100 mg PO BID PRN #20 cap 09/23/21 Allergies Allergy/AdvReac Type Severity Reaction Status Date / Time dextran 40 [DEXTRAN 40] Allergy Unknown Verified 09/25/21 11:22 morphine [MORPHINE] Allergy Unknown Verified 09/25/21 11:22 Review of Systems Review of Systems Narrative: GENERAL: Denies chills, fatigue, malaise, fever, sweats, travel HEENT: Denies sinus pain, ear pain, sore throat, difficulty swallowing, neck pain RESPIRATORY: Denies dyspnea, cough, wheezing, hemoptysis, sputum. CARDIOVASCULAR: Denies chest pain, palpitations, orthopnea, edema GASTROINTESTINAL: Denies nausea, vomiting, abdominal pain, diarrhea, constipation, melena. : Denies dysuria, frequency, incontinence, hematuria, urinary retention, flank pain. MUSCULOSKELETAL: Denies weakness, joint pain, or bony pain SKIN: No rash, no erythema, no pruritus NEUROLOGIC: See HPI PSYCHIATRIC: No concerning psychosocial issues. 12 point review of systems is negative except for those stated above and HPI Patient History Medical History BPH (benign prostatic hyperplasia) BPH w urinary obs/LUTS Congestive heart failure Coronary heart disease Elevated PSA Gout Heart attack Hypertension Surgical History History of back surgery History of circumcision History of permanent cardiac pacemaker placement History of prostate biopsy Family History Father Prostate cancer Coronary artery disease Social History marital status: number of children: 3 household members: spouse occupational status: previously employed Smoking Status: Never smoker alcohol intake: current substance use type: does not use caffeine: Yes Smoking Status: Never smoker alcohol intake frequency: 0-2 drinks per day Substance Use Type: does not use Exam Initial Vital Signs Initial Vital Signs: Vital Signs Temperature 97.4 F L 09/27/21 13:55 Pulse Rate 80 09/27/21 13:55 Respiratory Rate 18 09/27/21 13:55 Blood Pressure 77/47 L 09/27/21 13:55 Pulse Oximetry 97 09/27/21 13:55 GENERAL: Alert 86-year-old maleand in no acute distress. HEENT: Head atraumatic,EOMI, pupils reactive, face symmetric, moist mucous membranes CARDIOVASCULAR: Regular rate and rhythm without murmurs, rubs or gallops. RESPIRATORY: Breath sounds equal bilaterally, no wheezes rales or rhonchi. Speaks in full sentences ABDOMEN: Soft, nontender. Normoactive bowel sounds all 4 quadrants. No guarding or rebound. EXTREMITIES: Normal range of motion, no clubbing or edema. 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 Course Orders Ordered: ED Orders 09/27/21 14:01 XR chest 1V Stat EKG-12 Lead Stat 09/27/21 14:39 BNP [NT-proBNP (BNP-Adult 18+)] Stat Complete Blood Count AUTO DIFF Stat Comprehensive Metabolic Panel Stat Lipase Stat Magnesium Stat Troponin & CK Cardiac Panel Stat 09/27/21 14:40 COVID19 -Nasal swab/Pre-Proc Stat Discontinued Medications Sodium Chloride (Normal Saline 0.9%) 500 mls @ 1,000 mls/hr IV BOLUS ONE Stop: 09/27/21 14:52 Last Infusion: 09/27/21 15:08 Dose: 0 mls/hr Documented by: Admin: 09/27/21 14:37 Dose: 1,000 mls/hr Documented by: AGUSTIN Sodium Chloride (Normal Saline 0.9%) 500 mls @ 1,000 mls/hr IV BOLUS ONE Stop: 09/27/21 16:06 Last Infusion: 09/27/21 16:10 Dose: 0 mls/hr Documented by: Admin: 09/27/21 15:40 Dose: 1,000 mls/hr Documented by: AGUSTIN Vital Signs Vital signs: Vital Signs - 8 hr 09/27/21 13:55 09/27/21 14:31 09/27/21 14:32 Temperature 97.4 F L Pulse Rate 80 79 Respiratory Rate 18 31 H Blood Pressure 77/47 L 99/55 L Pulse Oximetry 97 09/27/21 14:45 09/27/21 15:00 09/27/21 15:15 Temperature Pulse Rate 80 80 80 Respiratory Rate 24 25 H 21 Blood Pressure 90/55 L 92/59 L 100/58 L Pulse Oximetry 99 99 99 09/27/21 15:30 09/27/21 15:45 09/27/21 16:00 Temperature Pulse Rate 80 80 80 Respiratory Rate 35 H 30 H 24 Blood Pressure 96/52 L 100/59 L 106/57 L Pulse Oximetry 98 98 98 MDM - Dizziness Lab Data Result diagrams: 09/27/21 14:39 09/27/21 14:39 Labs: Lab Results 09/27/21 09/27/2122 Range/Units 14:39 14:39 14:39 WBC 8.3 (4.5-11.0) X10^3/uL RBC 3.56 L (4.5-5.9) X10^6/uL Hgb 11.4 L (13.5-17.5) g/dL Hct 33.6 L (41-53) % MCV 94.3 (80-100) fL MCH 32.1 (26-34) PG MCHC 34.1 (30-36) % RDW 13.4 (11.6-14.8) % Plt Count 256 (150-400) X10^3/uL Neut % (Auto) 74.8 (50-75) % Lymph % (Auto) 9.4 L (25-40) % Ell[place] % (Auto) 12.8 (3-14) % Eos % (Auto) 2.6 (2-4) % Baso % (Auto) 0.4 (0-2) % Neut # (Auto) 6200 (5260-6191) /uL Lymph # (Auto) 800 L (0574-1928) /uL Ell[place] # (Auto) 1100 H (0-900) /uL Eos # (Auto) 200 (0-450) /uL Baso # (Auto) 0 (0-100) /uL Sodium 131 L (137-145) mmol/L Potassium 3.9 (3.4-5.1) mmol/L Chloride 95 L (98-107) mmol/L Carbon Dioxide 27 (22-32) mmol/L BUN 65 H (9-20) mg/dL Creatinine 2.32 H (0.66-1.25) mg/dL Estimated GFR 26.8 L (>60) mL/min BUN/Creatinine Ratio 28.0 H (6-22) Glucose 88 (80-110) mg/dL Calcium 10.2 (8.4-10.2) mg/dL Magnesium 2.3 (1.6-2.3) mg/dL Total Bilirubin 0.6 (0.2-1.3) mg/dL AST 30 (17-59) IU/L ALT 23 (<50) IU/L Alkaline Phosphatase 98 (38-126) U/L Total Creatine Kinase 166 (55-170) U/L CK-MB (CK-2) 2.09 (<2.37) ng/mL CK-MB (CK-2) Rel Index 1.3 L (1.5-5.0) % Troponin I 0.031 (0.01-0.034) ng/mL NT-Pro-B Natriuret Pep 6830 H (<450) pg/mL Total Protein 7.6 (6.3-8.2) g/dL Albumin 4.2 (3.5-5.0) g/dL Globulin 3.4 (1.7-4.1) g/dL Albumin/Globulin Ratio 1.2 (1.0-2.8) Lipase 499 H (23-300) U/L SARS-CoV-2 (PCR) (Negative) 09/27/21 Range/Units 14:40 WBC (4.5-11.0) X10^3/uL RBC (4.5-5.9) X10^6/uL Hgb (13.5-17.5) g/dL Hct (41-53) % MCV (80-100) fL MCH (26-34) PG MCHC (30-36) % RDW (11.6-14.8) % Plt Count (150-400) X10^3/uL Neut % (Auto) (50-75) % Lymph % (Auto) (25-40) % Ellsworth % (Auto) (3-14) % Eos % (Auto) (2-4) % Baso % (Auto) (0-2) % Neut # (Auto) (4252-0622) /uL Lymph # (Auto) (3173-9364) /uL Ellsworth # (Auto) (0-900) /uL Eos # (Auto) (0-450) /uL Baso # (Auto) (0-100) /uL Sodium (137-145) mmol/L Potassium (3.4-5.1) mmol/L Chloride (98-107) mmol/L Carbon Dioxide (22-32) mmol/L BUN (9-20) mg/dL Creatinine (0.66-1.25) mg/dL Estimated GFR (>60) mL/min BUN/Creatinine Ratio (6-22) Glucose (80-110) mg/dL Calcium (8.4-10.2) mg/dL Magnesium (1.6-2.3) mg/dL Total Bilirubin (0.2-1.3) mg/dL AST (17-59) IU/L ALT (<50) IU/L Alkaline Phosphatase (38-126) U/L Total Creatine Kinase (55-170) U/L CK-MB (CK-2) (<2.37) ng/mL CK-MB (CK-2) Rel Index (1.5-5.0) % Troponin I (0.01-0.034) ng/mL NT-Pro-B Natriuret Pep (<450) pg/mL Total Protein (6.3-8.2) g/dL Albumin (3.5-5.0) g/dL Globulin (1.7-4.1) g/dL Albumin/Globulin Ratio (1.0-2.8) Lipase (23-300) U/L SARS-CoV-2 (PCR) Negative (Negative) Imaging Data Chest x-ray: Radiologist's Impression: PROCEDURE:? XR CHEST 1V ? INDICATIONS:? chest pain ? TECHNIQUE:? One view of the chest was acquired.? ? COMPARISON:? [facility], , XR CHEST 1V, 09/25/2021, 11:40. ? FINDINGS:? ? Surgical changes and devices:? Sternal wires and pacemaker are unchanged. ? Lungs and pleura:? Lungs are clear.? No pleural effusions or pneumothorax.? ? Mediastinum:? Mediastinal contours appear normal.? Heart size is enlarged. ? Bones and chest wall:? No suspicious bony lesions.? Overlying soft tissues appear unremarkable.? ? IMPRESSION:? No consolidations. ? ? Dictated by: Sharonda Romero M.D. on 09/27/2021 at 15:11 ? ? ECG Data Interpretation: Paced rhythm rate [address] changes similar to previous EKG MDM Narrative Medical decision making narrative: Patient was appropriate mg of torsemide twice a day for the last day and a half. This likely caused his blood pressure to drop and cause acute kidney injury. Blood pressure is improving with IV fluids. He has no sign of congestive heart failure at this time. Willing to be admitted for close monitoring of fluid balance Dr. Dangelo of the patient's symptoms and happily accepts Discharge Plan Departure Patient Disposition: Admitted as Observation Clinical Impression: Acute kidney injury Admit Date/Time: 09/27/21 16:01 Admit Provider: Miguelina Dangelo
[2021-09-27] MEDS: SODIUM CHLORIDE 0.9% 500 ML 1000 ML IV ×2 (14:37→15:40)
[2021-09-27 14:50] LABS: Add Manual Diff / Slide Review NO; Basophils Absolute Auto 0 /uL (0-100); Basophils Percent Auto 0.4 % (0-2); Eosinophils Absolute Auto 200 /uL (0-450); Eosinophils Percent Auto 2.6 % (2-4); Hematocrit 33.6 % (41-53); Hemoglobin 11.4 g/dL (13.5-17.5); Lymphocytes Absolute Auto 800 /uL (1100-4500); Lymphocytes Percent Auto 9.4 % (25-40); Mean Corpuscular HGB Conc 34.1 % (30-36); Mean Corpuscular Hemoglobin 32.1 PG (26-34); Mean Corpuscular Volume 94.3 fL (80-100); Monocytes Absolute Auto 1100 /uL (0-900); Monocytes Percent Auto 12.8 % (3-14); Neutrophils Absolute Auto 6200 /uL (1500-7000); Neutrophils Percent Auto 74.8 % (50-75); Platelet Count 256 X10^3/uL (150-400); Red Blood Cell Count 3.56 X10^6/uL (4.5-5.9); Red Cell Distribution Width 13.4 % (11.6-14.8); White Blood Cell Count 8.3 X10^3/uL (4.5-11.0)
[2021-09-27 15:03] LABS: Alanine Aminotransferase 23 IU/L (<50); Albumin 4.2 g/dL (3.5-5.0); Albumin Globulin Ratio 1.2 (1.0-2.8); Alkaline Phosphatase 98 U/L (38-126); Aspartate Aminotransferase 30 IU/L (17-59); Bilirubin Total 0.6 mg/dL (0.2-1.3); Blood Urea Nitrogen 65 mg/dL (9-20); Calcium 10.2 mg/dL (8.4-10.2); Carbon Dioxide 27 mmol/L (22-32); Chloride 95 mmol/L (98-107); Creatine Kinase 166 U/L (55-170); Estimated Glomerular Filt Rate 26.8 mL/min (>60); Globulin 3.4 g/dL (1.7-4.1); Glucose 88 mg/dL (80-110); HEMOLYSIS < 15 (0-50); Lipase 499 U/L (23-300); Magnesium 2.3 mg/dL (1.6-2.3); Potassium 3.9 mmol/L (3.4-5.1); Sodium 131 mmol/L (137-145); Total Protein 7.6 g/dL (6.3-8.2)
[2021-09-27 15:14] LABS: Troponin I 0.031 ng/mL (0.01-0.034)
[2021-09-27 15:17] LABS: CKMB % Relative Index 1.3 % (1.5-5.0); Creatine Kinase MB 2.09 ng/mL (<2.37)
[2021-09-27 15:24] LABS: COVID19 -Nasal RAPID Negative (Negative)
[2021-09-27 16:13] LABS: NT-proBNP (BNP-Adult 18+) 6830 pg/mL (<450)
--- NOTE | 2021-09-27 19:32 | PC.ADMIT ---
[email or web address] [facility] Admission Note:Pt arrived from ER and able to stand and walk to bed, reports dizziness has resolved and Pt is eager to get a dinner tray. VSS. Cough noted, nonproductive and RA. Awaiting orders from Dr Dangelo. Pt is cleared for diet and admission completed. Skin check completed. Urinal for voiding. The patient,Roger Juarez,86 y/o, was given written information regarding hospital policies, unit procedures and contact persons. Patient's smoking status: Never smoker. Vital Signs - 8 hr 09/27/21 13:55 09/27/21 14:31 09/27/21 14:32 Temperature 97.4 F L Pulse Rate 80 79 Respiratory Rate 18 31 H Blood Pressure 77/47 L 99/55 L Pulse Oximetry 97 09/27/21 14:45 09/27/21 15:00 09/27/21 15:15 Temperature Pulse Rate 80 80 80 Respiratory Rate 24 25 H 21 Blood Pressure 90/55 L 92/59 L 100/58 L Pulse Oximetry 99 99 99 09/27/21 15:30 09/27/21 15:45 09/27/21 16:00 Temperature Pulse Rate 80 80 80 Respiratory Rate 35 H 30 H 24 Blood Pressure 96/52 L 100/59 L 106/57 L Pulse Oximetry 98 98 98 09/27/21 16:15 09/27/21 16:30 09/27/21 16:45 Temperature Pulse Rate 80 80 80 Respiratory Rate 23 17 21 Blood Pressure 119/62 116/58 L 114/59 L Pulse Oximetry 98 99 97 09/27/21 17:00 Temperature Pulse Rate 80 Respiratory Rate 10 L Blood Pressure 117/62 Pulse Oximetry 100
--- NOTE | 2021-09-27 19:38 | PC.NURSE ---
Dinner tray provided. Pt is SBA to BR to void. Call light in reach. Awaiting orders. Cough noted, nonproductive.
--- NOTE | 2021-09-27 20:55 | PM.HP.1 ---
History of Present Illness History of Present Illness Date Patient Seen: 09/27/21 Time Patient Seen: 20:00 Chief complaint: Very low BP Narrative: Roger Juarez is a 86-year-old male history of diastolic/systolic congestive heart failure EF of 30-35%, CABG s/p stent x4, hypertension, hyperlipidemia, CAD, gout, NIDDM, BPH with lower urinary issues who presented today to the ED with near-syncope, and severe hypotension, secondary to dehydration, from medication missed management. The patient being seen in the ED several days prior for SOB due to CHF exacerbation, patient had been advised to double his torsemide for 3 days, (though patient was unsure as to his dose). The patient reports that he increased both his carvedilol, losartan, and torsemide all for 3 days. When he showed up to physical therapy today the patient was found to demonstrate postural hypotension, and found to have a systolic blood pressure of 57. Patient was subsequently sent to the ED and presented with a BP 77/47. Patient's SOB has resolved, and he reported to the ED that his torsemide is no longer making him urinate. In reviewing patients medication list he is taking a large variety of supplements to include: vitamin-C, coenzyme Q10, curcumonoids, Icarin, Vit B12 inj & lozenge, DHEA, resveratrol, Smiraforta, and topical testerone. The patient also has hydroxychloroquine on his medication list, as well as letrozole (antineoplastic agent) which he states is for testerone/estrogen issues?? After talking with the patient I have concerns for inappropriate prescribing, dosing, and medication management in addition too, interactions between prescribed medications and herbal supplements. I have review both his family practice and urology notes and can find no history of cancers, no breast or ovarian cancer, no documentation for why he taking this medication. Patients taking this medication with a history of [place], diabetes, heart failure, and CAD have hazard ratio of a nearly 3 fold higher ratio of risk of cardiovascular event. Upon admit patient denies chest pain, shortness of breath, headache, weakness, numbness, tingling, changes in vision, abdominal pain, nausea, vomiting, fever, body aches, chills, rashes, hematemesis, hematuria, melena, recent illness injury or trauma that otherwise stated. Patient's vitals upon admit temp 97.7?, BP 109/53, HR 80, R 24, O2 saturation 96% on room air. Patient's HGB 11.4/HCT 33.6, patient demonstrates mild hyponatremia sodium 131, chloride 95, BUN 65, positive DOREEN with a creatinine of 2.32, GFR 26.8. creatinine and GFR from 09/25/2021 creatinine 1.65, GFR 39.7. BNP 6830, lipase 499, MRSA pending. Chest x-ray demonstrated pacer in place no consolidations, or acute cardiopulmonary processes. Patient's EKG demonstrated ventricular paced rate at [address] or T-wave changes I personally reviewed. Admitted for Observation for severe hypotension with near syncope secondary to dehydration and DOREEN due to medication overuse. ? Patient History Medical History (Updated 09/28/21 @ 01:09 by MARY Sarabia-EULALIA) BPH (benign prostatic hyperplasia) BPH w urinary obs/LUTS CAD (coronary artery disease), [place] coronary artery Congestive heart failure Coronary heart disease Elevated PSA Gout Heart attack Hypertension Surgical History (Updated 09/28/21 @ 01:07 by MARY Sarabia-EULALIA) History of back surgery History of circumcision History of coronary artery bypass graft x 3 History of permanent cardiac pacemaker placement History of prostate biopsy Family & Social History Family History (Updated 09/28/21 @ 01:10 by CHIKIS Sarabia) Father Prostate cancer Coronary artery disease Mother Cancer Social History: household members spouse Safety & Behavioral: Feels Safe in Current Yes Environment Been Physically Hurt or No Threatened By a Person Suicidal Ideation Description None Suicide Plan Description No Plan Tobacco & Substance use: Smoking Status Never smoker alcohol intake current alcohol intake frequency 0-2 drinks per day Substance Use Type does not use Meds Home Medications and Allergies Home Medications Medication Instructions Recorded Confirmed Type Curcumonoids 180 mg PO BID 10/13/20 09/27/21 History Icarin 60 mg PO BID 10/13/20 09/27/21 History S Miraforta 1,500 mg PO DAILY 10/13/20 09/27/21 History apixaban 2.5 mg tablet (Eliquis) 2.5 mg PO BID 10/13/20 09/27/21 History ascorbic acid (vitamin C) 1,000 mg 1 g PO BID tab 10/13/20 09/27/21 History tablet atorvastatin 20 mg tablet 20 mg PO DAILY 10/13/20 09/27/21 History carvedilol 12.5 mg tablet 12.5 mg PO BID 10/13/20 09/27/21 History coenzyme Q10 100 mg capsule 100 mg PO DAILY 10/13/20 09/27/21 History (CoQ-10) isosorbide dinitrate 30 mg tablet 30 mg PO DAILY tab 10/13/20 09/27/21 History letrozole 2.5 mg tablet 2.5 mg PO DAILY 10/13/20 09/27/21 History mecobalamin (vitamin B12) 10,000 800 mcg SUBCUT WEEKLY 10/13/20 09/27/21 History mcg solution for injection mecobalamin (vitamin B12) 5,000 100 mcg PO BEDTIME ea 10/13/20 09/27/21 History mcg lozenge prasterone (dhea) 25 mg capsule 25 mg PO .weekly cap 10/13/20 09/27/21 History (DHEA) probenecid 500 mg tablet 500 mg PO DAILY 10/13/20 09/27/21 History resveratrol 100 mg capsule 100 mg PO BID 10/13/20 09/27/21 History spironolactone 25 mg tablet 25 mg PO DAILY 10/13/20 09/27/21 History testosterone 50 mg/5 gram (1 %) 50 mg TRANSDERMAL DAILY 10/13/20 09/27/21 History transdermal gel thyroid 60 mg tablet 60 mg PO DAILY 10/13/20 09/27/21 History torsemide 20 mg tablet 20 mg PO BID 10/13/20 09/27/21 History benzonatate 100 mg capsule 100 mg PO BID PRN #20 cap 09/23/21 09/27/21 Rx finasteride 5 mg tablet 5 mg PO BEDTIME 09/27/21 09/27/21 History glipizide 2.5 mg tablet, extended 2.5 mg PO DAILY 09/27/21 09/27/21 History release 24 hr sitagliptin 50 mg tablet (Januvia) 50 mg PO BEDTIME 09/27/21 09/27/21 History valsartan 40 mg tablet 40 mg PO DAILY 09/27/21 09/27/21 History Allergies Allergy/AdvReac Type Severity Reaction Status Date / Time dextran 40 [DEXTRAN 40] Allergy Unknown Verified 09/25/21 11:22 morphine [MORPHINE] Allergy Unknown Verified 09/25/21 11:22 Review of Systems Review of Systems Narrative: All 12 point systems reviewed with the patient and are negative except otherwise documented. Exam Vital Signs (past 8 hours): - 09/27/21 13:55 09/27/21 14:31 09/27/21 14:32 Temperature 97.4 F L Pulse Rate 80 79 Respiratory Rate 18 31 H Blood Pressure 77/47 L 99/55 L Pulse Oximetry 97 09/27/21 14:45 09/27/21 15:00 09/27/21 15:15 Temperature Pulse Rate 80 80 80 Respiratory Rate 24 25 H 21 Blood Pressure 90/55 L 92/59 L 100/58 L Pulse Oximetry 99 99 99 09/27/21 15:30 09/27/21 15:45 09/27/21 16:00 Temperature Pulse Rate 80 80 80 Respiratory Rate 35 H 30 H 24 Blood Pressure 96/52 L 100/59 L 106/57 L Pulse Oximetry 98 98 98 09/27/21 16:15 09/27/21 16:30 09/27/21 16:45 Temperature Pulse Rate 80 80 80 Respiratory Rate 23 17 21 Blood Pressure 119/62 116/58 L 114/59 L Pulse Oximetry 98 99 97 09/27/21 17:00 09/27/21 20:00 Temperature 97.7 F Pulse Rate 80 80 Respiratory Rate 10 L 24 Blood Pressure 117/62 109/53 L Pulse Oximetry 100 96 Oxygen Delivery Method Room Air Oxygen Flow Rate 0 Narrative Exam Narrative: General: Patient is a well-developed, well-nourished fit elderly male, who appears younger than stated age, in no distress at this time, asymptomatic, no signs of edema or fluid overload present on exam. HEENT: Normocephalic, atraumatic, extraocular muscles intact, oral pharynx is clear and mucous membranes are moist. Neck is supple and symmetric, trachea is midline, no adenopathy, no thyroid enlargement, nontender, no masses palpated. Negative for JVD Chest: Normal AP diameter and contour without kyphoscoliosis, no nasal flaring, retractions, or tachypneic labored breathing. Lungs: Auscultation of all lung melo are clear without adventitious sounds, wheezes, rhonchi, or rales. Patient is sitting with head of the bed all the up, so as to be in a sitting position. Cardio: regular Ventricular paced rate and rhythm without murmur, rubs, or gallops, no carotid bruit, no cardiac pulsations present. noted pacer in place to upper left chest area, CABG mid-chest vertivle scar. Abdomen: Soft nontender, negative for organomegaly, or masses. Bowel sounds are present in all 4 quadrants without guarding or rebound, no CVA tenderness. Musculoskeletal: Muscle strength and tone are equal within normal limits, no deformity, crepitus, effusions, cyanosis, clubbing or edema present. Full range of motion intact radial and pedal pulses are normal. Skin: Warm dry and intact without rashes, ulcerations or petechiae. Neuro: Alert and orientated x3, strength is +5/5 in all extremities, sensation to touch intact, no gross deficits noted of cranial nerves. Psych: Patient has a well-kept appearance, appropriate affect, mental status attitude thought context and judgment are appropriate for age. Objective Labs Result Diagrams: 09/27/21 14:39 09/27/21 14:39 Labs: Laboratory Results - last 24 hr 09/27/21 09/27/21 09/27/21 14:39 14:39 14:39 WBC 8.3 RBC 3.56 L Hgb 11.4 L Hct 33.6 L MCV 94.3 MCH 32.1 MCHC 34.1 RDW 13.4 Plt Count 256 Neut % (Auto) 74.8 Lymph % (Auto) 9.4 L [place] % (Auto) 12.8 Eos % (Auto) 2.6 Baso % (Auto) 0.4 Neut # (Auto) 6200 Lymph # (Auto) 800 L [place] # (Auto) 1100 H Eos # (Auto) 200 Baso # (Auto) 0 Sodium 131 L Potassium 3.9 Chloride 95 L Carbon Dioxide 27 BUN 65 H Creatinine 2.32 H Estimated GFR 26.8 L BUN/Creatinine Ratio 28.0 H Glucose 88 Calcium 10.2 Magnesium 2.3 Total Bilirubin 0.6 AST 30 ALT 23 Alkaline Phosphatase 98 Total Creatine Kinase 166 CK-MB (CK-2) 2.09 CK-MB (CK-2) Rel Index 1.3 L Troponin I 0.031 NT-Pro-B Natriuret Pep 6830 H Total Protein 7.6 Albumin 4.2 Globulin 3.4 Albumin/Globulin Ratio 1.2 Lipase 499 H SARS-CoV-2 (PCR) 09/27/21 14:40 WBC RBC Hgb Hct MCV MCH MCHC RDW Plt Count Neut % (Auto) Lymph % (Auto) [place] % (Auto) Eos % (Auto) Baso % (Auto) Neut # (Auto) Lymph # (Auto) [place] # (Auto) Eos # (Auto) Baso # (Auto) Sodium Potassium Chloride Carbon Dioxide BUN Creatinine Estimated GFR BUN/Creatinine Ratio Glucose Calcium Magnesium Total Bilirubin AST ALT Alkaline Phosphatase Total Creatine Kinase CK-MB (CK-2) CK-MB (CK-2) Rel Index Troponin I NT-Pro-B Natriuret Pep Total Protein Albumin Globulin Albumin/Globulin Ratio Lipase SARS-CoV-2 (PCR) Negative Assessment & Plan Assessment & Plan narrative: Roger Juarez is a 86-year-old male history of diastolic/systolic congestive heart failure EF of 30-35%, HX heart attack, hypertension, hyperlipidemia, CAD, gout, an IDDM, BPH with lower urinary issues who is admitted for observation following a doubling of both his blood pressure medications and his torsemide, resulting in DOREEN. Patient does have an elevated BNP but is asymptomatic. He will need gentle hydration to resolve hypo mild hyponatremia, electrolyte imbalance, while being monitored for symptoms of CHF exacerbation. 1. Severe hypotension with near-syncope secondary to dehydration, resulting in mild hyponatremia, due to diuretic, antihypertensive medication overuse, acute, present on admission -Patient was attempting to resolve his SOB/CHF exacerbation by increasing diuretic medication. -pacemaker in place, patient ventricularly paced -patient being monitored on telemedicine -holding all blood pressure medications at this time. carvedilol, valsartan, torsemide, spirolactone, isosorbide dinitrate -sodium 131: NS@ 60 cc/HR 2. DOREEN secondary to dehydration, acute, present on admit -admitting creatinine 2.32, GFR 26.8 09/25/2021 creatinine 1.65, GFR 39.7 -patient received 2 L boluses in ED -holding diuretics -continue NS at 60 cc/HR 3. Systolic/diastolic heart failure, acute on chronic, present on admission -last echo 09/11/2021 Dr. Vargas EF 30-35% -patient is asymptomatic, no shortness of breath, O2 saturations are 96% on room air with a respiratory rate 24 -BNP 6830 -holding all diuretics and blood pressure medications as stated above -monitor weight daily, strict I&O 4. Essential hypertension, CAD, with a history of a heart attack, chronic, present on admission -BP 77/47 in ED, 109/53 on admit -Will continue to monitor. -holding blood pressure medications as listed above -continue Eliquis 5. Hyperlipidemia, mixed, chronic, present on admission -continue patient's atorvastatin 6. NIDDM II, chronic, present on admission-control unknown -admitting blood sugar 88 -A1c ordered -continue patient's glipizide, metformin -patient admitted under diabetic protocol, monitor for hypoglycemia -low-dose sliding scale for coverage -low-carbohydrate diet 7. BPH with lower urinary obstruction, chronic, present on admission -monitor for urinary retention, or possible UTI. 8. Hypothyroidism, acquired, chronic, present on admission -continue levothyroxine -TSH ordered 9. Gout, chronic, present on admission -continue Probenecid 10. Malnourished as evidence by BMI of 21.7, acute on chronic, present on admission -dietary consult ordered Code status:Full Surrogate decision maker: Spouse Jacque Juarez COVID PCR:Negative COVID vaccination: Unknown DVT/VTE prophylaxis:YESSICA Lopes's Disposition: Patient admitted for observation expected length of stay less than 2 midnights further correction of electrolyte imbalance, and hypotension. I have utilized all available immediate resources to obtain, update, or review the patient's current medications. I confirmed that the patient's advanced care plan is present, Code status is documented and/or surrogate decision maker is listed in the patient's medical record. Time Spent With Patient Critical Care time: I spent a total of [] minutes of critical care time on this patient's care today; this time is exclusive of procedural time. Quality VTE Deep Vein Thrombosis/Pulmonary Embolism Present on Admission: No
[2021-09-27] MEDS: SODIUM CHLORIDE 0.9% 1,000 ML 60 ML IV (22:33)
[2021-09-27] MEDS: BENZONATATE 100 MG CAPSULE PO (22:34)
[2021-09-27] MEDS: APIXABAN 5 MG TABLET 2.5 MG PO (22:35)
[2021-09-28 03:00] VITALS: BP 105/57; PULSE 80; RESP 24; TEMP 36.4; O2SAT 93
[2021-09-28 04:00] VITALS: O2SAT 93
[2021-09-28 05:57] VITALS: BP 109/56; PULSE 80; RESP 20; TEMP 36.6; O2SAT 95
[2021-09-28 06:31] LABS: Hematocrit 33.6 % (41-53); Hemoglobin 11.3 g/dL (13.5-17.5)
[2021-09-28 06:39] LABS: Alanine Aminotransferase 21 IU/L (<50); Albumin 4.1 g/dL (3.5-5.0); Albumin Globulin Ratio 1.3 (1.0-2.8); Alkaline Phosphatase 100 U/L (38-126); Aspartate Aminotransferase 27 IU/L (17-59); BUN Creatinine Ratio 33.7 (6-22); Bilirubin Total 0.6 mg/dL (0.2-1.3); Blood Urea Nitrogen 61 mg/dL (9-20); Calcium 9.7 mg/dL (8.4-10.2); Carbon Dioxide 25 mmol/L (22-32); Chloride 99 mmol/L (98-107); Estimated Glomerular Filt Rate 35.6 mL/min (>60); Globulin 3.2 g/dL (1.7-4.1); Glucose 97 mg/dL (80-110); HEMOLYSIS < 15 (0-50); Magnesium 2.1 mg/dL (1.6-2.3); Potassium 3.9 mmol/L (3.4-5.1); Sodium 134 mmol/L (137-145); Total Protein 7.3 g/dL (6.3-8.2)
[2021-09-28 06:42] LABS: Hemoglobin A1C% w Est Avg Glu 5.7 % (4.0-6.0)
[2021-09-28 06:46] LABS: NT-proBNP (BNP-Adult 18+) 4280 pg/mL (<450)
[2021-09-28 07:10] LABS: TSH w/ Reflex to FT4 2.42 uIU/mL (0.47-4.68)
[2021-09-28 08:00] VITALS: O2SAT 99
[2021-09-28] MEDS: THYROID, PORK 30 MG TABLET 60 MG PO (08:43)
[2021-09-28 08:45] VITALS: BP 106/58; PULSE 80; RESP 20; TEMP 36.6; O2SAT 95
[2021-09-28] MEDS: APIXABAN 5 MG TABLET 2.5 MG PO (09:11)
[2021-09-28] MEDS: ATORVASTATIN 20 MG TABLET PO (09:11)
[2021-09-28] MEDS: AZITHROMYCIN 250 MG TABLET 500 MG PO (09:12)
[2021-09-28] MEDS: CEFDINIR 300 MG CAPSULE PO (09:12)
--- NOTE | 2021-09-28 10:56 | PC.NURSE ---
Pt feeling much better with kidney values improved, ambulating to BR to void. Gait steady. Dr Adame into see Pt and dc orders written Tele and IV removed. arrived and Pt is wheeled out to private vehicle with follow up appt to be scheduled with [facility], Jamila Johnson.
--- NOTE | 2021-09-28 12:35 | CM.IDA ---
Initial DCP Assessment Note Pt is an 86 yo male, resident of [place], arrives w/low BP admitted observation H+P: following a doubling of both his blood pressure medications and his torsemide, resulting in DOREEN. Patient does have an elevated BNP but is asymptomatic. He will need gentle hydration to resolve hypo mild hyponatremia, electrolyte imbalance, while being monitored for symptoms of CHF exacerbation. PCP: Ry Ash Payer: [facility] Reviewed chart, pt discussed in multidisciplinary rounds this morning. Patient eager to return home, walking SBA to BR. Dr Adame has medically cleared patient after visit this morning. According to RN, Pt feeling much better with kidney values improved, ambulating to BR to void No needs indicated from this SANDRA Berkowitz Discharge Planning/Care Management CM Discharge Assessment Start: 09/28/21 12:31 Freq: Status: Active Protocol: Document 09/28/21 12:31 MARILEE (Rec: 09/28/21 12:35 MARILEE [id number]) Discharge Planning Assessment Assigned Judo Instructor SANDRA Rodriguez DPOA/Assigned Designee Name Jacque Juarez, spouse Contact Information home [phone], [phone] Advance Directives? Yes Advance Directives on File No History Provided By Patient,Significant Other, Medical Record Prior Living Arrangements House Household Members spouse Type of transporation used prior to Relies on Others admit Independent with ADL's Yes: CHF EF 30-35%, poor activity tolerance Is patient alert and oriented? Yes Needs Assistance With Meal Prep,Home Chores / Shopping Comment Caregiver Zach Alvarado# [phone] Barriers to Discharge No Comment Home w/spouse Discharge Plan Home Transportation Arrangement Spouse Referrals Initiated None needed
--- NOTE | 2021-09-28 18:25 | P.DS_ITS ---
History of Present Illness History of Present Illness Chief complaint: Very low BP Narrative: 86-year-old male history of diastolic/systolic congestive heart failure EF of 30-35%, CABG s/p stent x4, hypertension, hyperlipidemia, CAD, gout, NIDDM, BPH with lower urinary issues who presented today to the ED with near-syncope, and severe hypotension due to recent doubling of loop diuretic. Noted to be in acute kidney failure. Patient had been in the ER couple days prior and thought to be in acute on chronic CHF. He states he has had a cough and breathing difficulties for the past fiber 6 days. Discharge Providers Provider Date of admission: 09/27/21 16:01 Discharge Date: 09/28/21 Primary care physician: Ry Ash MD Consults: 09/27/21 20:45 Consult to Dietitian, Adult Routine Comment: Reason For Exam: BMI 21.7 Discharge provider: Waqar Adame MD Summary Hospital Course Discharge Diagnosis: 1. Syncope due to over diuresis 2. Acute kidney injury, prerenal 3. Possible pneumonia 4. Chronic systolic heart failure 5. CAD 6. Type 2 diabetes Hospital Course: Patient was hydrated overnight with improvement in blood pressures and renal function. He is feeling better. Still has a cough and some breathing difficulties. He seems to be at baseline weight over the past year and got volume depleted with increase in diuretic. Chest x-ray consistent with CHF versus atypical pneumonia. He was COVID negative. I sent him home on oral antibiotics due to concern of possible pneumonia causing this presentation. Status at Discharge Overall status at discharge: patient is progressing back to baseline Time Spent with Patient Time spent: Greater than 30 minutes Exam Vital Signs (past 8 hours): Oxygen Delivery Method Room Air Oxygen Flow Rate 0 Narrative Exam Narrative: General: Alert pleasant NAD Lungs: Bilateral lower lobe crackles no wheeze Heart: Regular rhythm Extremities: No edema Neurological: Alert and oriented normal affect Objective Labs Result Diagrams: 09/28/21 06:05 09/28/21 06:05 Labs: Laboratory Results - last 24 hr 09/27/21 09/28/21 09/28/21 20:00 06:05 06:05 Hgb 11.3 L Hct 33.6 L Sodium 134 L Potassium 3.9 Chloride 99 Carbon Dioxide 25 BUN 61 H Creatinine 1.81 H Estimated GFR 35.6 L BUN/Creatinine Ratio 33.7 H Glucose 97 Hemoglobin A1c Calcium 9.7 Magnesium 2.1 Total Bilirubin 0.6 AST 27 ALT 21 Alkaline Phosphatase 100 NT-Pro-B Natriuret Pep 4280 H Total Protein 7.3 Albumin 4.1 Globulin 3.2 Albumin/Globulin Ratio 1.3 TSH Nasal Screen MRSA (PCR) Negative for mrsa 09/28/21 09/28/21 06:05 06:05 Hgb Hct Sodium Potassium Chloride Carbon Dioxide BUN Creatinine Estimated GFR BUN/Creatinine Ratio Glucose Hemoglobin A1c 5.7 Calcium Magnesium Total Bilirubin AST ALT Alkaline Phosphatase NT-Pro-B Natriuret Pep Total Protein Albumin Globulin Albumin/Globulin Ratio TSH 2.42 Nasal Screen MRSA (PCR) [facility] Medical History (Updated 09/28/21 @ 01:09 by CHIKIS Sarabia) BPH (benign prostatic hyperplasia) BPH w urinary obs/LUTS CAD (coronary artery disease), [place] coronary artery Congestive heart failure Coronary heart disease Elevated PSA Gout Heart attack Hypertension Surgical History (Updated 09/28/21 @ 01:07 by CHIKIS Sarabia) History of back surgery History of circumcision History of coronary artery bypass graft x 3 History of permanent cardiac pacemaker placement History of prostate biopsy Family History (Updated 09/28/21 @ 01:10 by CHIKIS Sarabia) Father Prostate cancer Coronary artery disease Mother Cancer Social History marital status: number of children: 3 household members: spouse occupational status: previously employed Smoking Status: Never smoker alcohol intake: current substance use type: does not use caffeine: Yes Discharge Plan Discharge Plan Patient Disposition: Home Provider Discharge Comment: You were admitted due to low blood pressures caused by increase in diuretic. Additionally you have had a cough for about a week possibly due to pneumonia/bronchitis vs CHF. Take antibiotics as prescribed. Resume medications as per your normal routine. See provider early next week for follow up. Nursing Discharge Comment: d/c after po abx given Discharge orders & Medications Prescriptions: New cefdinir 300 mg capsule 300 mg PO BID Qty: 14 0RF azithromycin 250 mg tablet 250 mg PO DAILY 4 Days Qty: 4 0RF Rx Instructions: start second day of therapy on 09/29/21 Continued benzonatate 100 mg capsule 100 mg PO BID PRN (Reason: cough) Qty: 20 0RF isosorbide dinitrate 30 mg tablet 30 mg PO DAILY 0RF Rx Instructions: allow nitrate-free interval of 12-14 hrs per 24-hr period testosterone 50 mg/5 gram (1 %) gel 50 mg transdermal DAILY 0RF torsemide 20 mg tablet 40 mg PO BID 0RF spironolactone 25 mg tablet 25 mg PO DAILY 0RF Eliquis 2.5 mg tablet 2.5 mg PO BID 0RF carvedilol 12.5 mg tablet 12.5 mg PO BID 0RF Rx Instructions: must administer with a meal/food mecobalamin (vitamin B12) 10,000 mcg [place] 800 mcg SUBCUT WEEKLY 0RF atorvastatin 20 mg tablet 20 mg PO DAILY 0RF letrozole 2.5 mg tablet 2.5 mg PO DAILY 0RF thyroid 60 mg tablet 60 mg PO DAILY 0RF probenecid 500 mg tablet 500 mg PO DAILY 0RF prasterone (dhea) [DHEA] 25 mg capsule 25 mg PO .weekly 0RF ascorbic acid (vitamin C) 1,000 mg tablet 1 g PO BID 0RF coenzyme Q10 [CoQ-10] 100 mg capsule 100 mg PO DAILY 0RF mecobalamin (vitamin B12) 5,000 mcg lozenge 100 mcg PO BEDTIME 0RF Rx Instructions: allow to dissolve in mouth OR may chew lightly before swallowing Icarin 60 mg PO BID 0RF Curcumonoids 180 mg PO BID 0RF resveratrol 100 mg capsule 100 mg PO BID 0RF S Miraforta 1,500 mg PO DAILY 0RF finasteride 5 mg tablet 5 mg PO BEDTIME 0RF glipizide 2.5 mg tablet extended release 24 hr 2.5 mg PO DAILY 0RF valsartan 40 mg tablet 40 mg PO DAILY 0RF Label Comments: TAKE 1 TABLET BY MOUTH DAILY Januvia 50 mg Tablet 50 mg PO BEDTIME 0RF Follow up/Referrals: Ry Ash MD [Primary Care Provider] - 3-5 Days Diet/Activity/Treatments Diet: Carb-consistent/Diabetic Visit Report/Discharge Packet Instructions: DI for Heart Failure, DI for Pneumonia -- Adult, Acute Kidney Injury Discharge Data Primary Care Provider: Ry Ash V Attending Provider: Miguelina Dangelo VTE Deep Vein Thrombosis/Pulmonary Embolism Present on Admission: No
== END 2021-09-28 10:58 | disposition home or self-care (01) ==
LOC: ED 15:21 → AC 16:02 → ICU 09-28 07:12
PROVIDERS: Nurse Practitioner Family; Admitting Provider Internal Medicine; Emergency Provider Emergency Medicine; PCP Internal Medicine; Referring Provider Emergency Medicine; Visit Provider Internal Medicine
DX: R55 Syncope and collapse (principal); N17.9 Acute kidney failure, unspecified; I50.22 Chronic systolic (congestive) heart failure; I11.0 Hypertensive heart disease with heart failure; I25.10 Atherosclerotic heart disease of native coronary artery without angina pectoris; E11.9 Type 2 diabetes mellitus without complications; N40.1 Benign prostatic hyperplasia with lower urinary tract symptoms; E78.5 Hyperlipidemia, unspecified; Z95.1 Presence of aortocoronary bypass graft; Z79.84 Long term (current) use of oral hypoglycemic drugs; Z79.01 Long term (current) use of anticoagulants; Z20.822 Contact with and (suspected) exposure to COVID-19
CPT/HCPCS: 36415; 71045; 80053; 82550; 82553; 82962; 83036; 83690; 83735; 83880; 84443; 84484; 85014; 85018; 85025; 87635; 87797; 93005; 96360; 99284; C9803; G0378; J1815

== ENCOUNTER 2022-01-11 10:26 | Emergency (ER) | payer MEDICARE, SELFPAY ==
[2021-10-22 15:30] VITALS: BMI 21.7
[2022-01-11] VITALS (30 sets, daily range): BP systolic 86–124; BP diastolic 48–59; PULSE 79–80; RESP 15–24; TEMP 36.6; O2SAT 96–99; BMI 22.1
--- NOTE | 2022-01-11 10:44 | DI.RAD.S_ITS ---
PROCEDURE: XR CHEST 1V INDICATIONS: chest pain TECHNIQUE: One view of the chest was acquired. COMPARISON: [facility], CR, XR CHEST 2V, 09/23/2021, 16:24. [facility], CR, XR CHEST 1V, 09/25/2021, 11:40. [facility], CR, XR CHEST 1V, 09/27/2021, 14:21. FINDINGS: Surgical changes and devices: A mediastinal radiopaque device is again seen. An AICD is seen. The leads are seen in stable positions. Lungs and pleura: An incomplete inspiratory result is noted, causing a crowded appearance to the lung markings. No focal infiltrates are seen. Mild interstitial prominence can be seen. No pneumothorax or significant pleural effusions are seen. Mediastinum: The cardiac contours are mildly enlarged. The aorta demonstrates calcification and tortuosity. Bones and chest wall: No suspicious bony lesions. Age-appropriate bony degenerative changes are seen. Mild dextroconvex scoliotic curvature is seen. Overlying soft tissues appear unremarkable. IMPRESSION: Mild cardiomegaly and interstitial prominence. Please correlate with patient presentation, physical examination findings, and laboratory values for congestive heart failure. Postoperative and degenerative changes are seen. Dictated by: Xu Newsome M.D. on 01/11/2022 at 10:21 Approved by: Xu Newsome M.D. on 01/11/2022 at 10:22
[2022-01-11 11:14] LABS: Add Manual Diff / Slide Review NO; Basophils Absolute Auto 100 /uL (0-100); Basophils Percent Auto 0.6 % (0-2); Eosinophils Absolute Auto 200 /uL (0-450); Eosinophils Percent Auto 1.9 % (2-4); Hematocrit 31.4 % (41-53); Hemoglobin 10.7 g/dL (13.5-17.5); Lymphocytes Absolute Auto 700 /uL (1100-4500); Lymphocytes Percent Auto 8.2 % (25-40); Mean Corpuscular HGB Conc 34.2 % (30-36); Mean Corpuscular Hemoglobin 33.1 PG (26-34); Mean Corpuscular Volume 96.8 fL (80-100); Monocytes Absolute Auto 800 /uL (0-900); Monocytes Percent Auto 10.3 % (3-14); Neutrophils Absolute Auto 6500 /uL (1500-7000); Platelet Count 280 X10^3/uL (150-400); Red Blood Cell Count 3.24 X10^6/uL (4.5-5.9); Red Cell Distribution Width 14.5 % (11.6-14.8); White Blood Cell Count 8.2 X10^3/uL (4.5-11.0)
--- NOTE | 2022-01-11 11:34 | PC.NURSE ---
Reports history of COVID 3 weeks ago. Started to feel dizzy yesterday, thought it would go away and then reports still dizzy/nausea this morning with BP of 60s/40s at home. Took eliquis this morning. Has a lump on right leg upper calf/behind knee that has been there for 7 years. States I don't have any arterial flow through this leg. The circulation grew around and the doctors don't want to do surgery. States this lump is normally not painful, but started to hurt yesterday.
[2022-01-11 11:47] LABS: BUN Creatinine Ratio 34.4 (6-22); Blood Urea Nitrogen 94 mg/dL (9-20); Carbon Dioxide 23 mmol/L (22-32); Chloride 94 mmol/L (98-107); Estimated Glomerular Filt Rate 22 mL/min (>60); Potassium 4.6 mmol/L (3.4-5.1); Sodium 130 mmol/L (137-145)
[2022-01-11 11:48] LABS: Alanine Aminotransferase 15 IU/L (<50); Albumin 4.2 g/dL (3.5-5.0); Albumin Globulin Ratio 1.3 (1.0-2.8); Alkaline Phosphatase 97 U/L (38-126); Aspartate Aminotransferase 24 IU/L (17-59); Bilirubin Total 0.7 mg/dL (0.2-1.3); Calcium 9.6 mg/dL (8.4-10.2); Creatine Kinase 176 U/L (55-170); Globulin 3.2 g/dL (1.7-4.1); Glucose 104 mg/dL (80-110); HEMOLYSIS < 15 (0-50); Lipase 313 U/L (23-300); Magnesium 2.8 mg/dL (1.6-2.3); Total Protein 7.4 g/dL (6.3-8.2); Troponin I 0.028 ng/mL (0.01-0.034)
[2022-01-11 11:50] LABS: CKMB % Relative Index 2.1 % (1.5-5.0); Creatine Kinase MB 3.67 ng/mL (<2.37)
--- NOTE | 2022-01-11 13:18 | ED.CHESTPAIN ---
HPI - Chest Pain General Chief Complaint: Chest Pain Stated Complaint: low blood pressure hard clot behind knee Time Seen by Provider: 01/11/22 13:18 Source: patient Mode of arrival: Family Vehicle Limitations: no limitations History of Present Illness HPI narrative: This is an 86-year-old male with history of CABG, stents x3, pacemaker, CHF with prior EF of 30% and comes emergency department with complaint of low blood pressure and pain behind his right knee. Patient states that he got up in the middle night to urinate which is quite common for him. He felt really dizzy and lightheaded like he would make it back to the bed. He checked his blood pressure got systolic pressure of 60. Patient went back to bed got up at 8:00 a.m. felt better he has not had persistent lightheadedness and dizziness. He states he feels pretty much back to. He denies chest pain or pressure last night oriented today, no shortness of breath, no nausea or vomiting, no diarrhea constipation, no urinary symptoms. He does note he stop his spironolactone and isosorbide about 3 weeks ago he had for gotten for a week took both of them and noted his blood pressure was quite low so he just stopped them. He also notes that he has discomfort but kind his right knee where his right popliteal aneurysm is present. It does not normally cause him any pain he has not appreciated any size changes. He was seen about 7 years ago it ever it for his aneurysm and was taken to the OR but did not have surgery they felt that he would lose his leg if he had surgery. Patient is on Eliquis daily, no other thinners. Related Data Home Medications Medication Instructions Recorded Confirmed Icarin 60 mg PO BID 10/13/20 10/22/21 apixaban 2.5 mg tablet (Eliquis) 2.5 mg PO BID 10/13/20 10/22/21 ascorbic acid (vitamin C) 1,000 mg 1 g PO BID 10/13/20 10/22/21 tablet coenzyme Q10 100 mg capsule 100 mg PO DAILY 10/13/20 10/22/21 (CoQ-10) isosorbide dinitrate 30 mg tablet 30 mg PO DAILY 10/13/20 10/22/21 letrozole 2.5 mg tablet 2.5 mg PO DAILY 10/13/20 10/22/21 mecobalamin (vitamin B12) 10,000 800 mcg SUBCUT WEEKLY 10/13/20 10/22/21 mcg solution for injection mecobalamin (vitamin B12) 5,000 100 mcg PO BEDTIME 10/13/20 10/22/21 mcg lozenge prasterone (dhea) 25 mg capsule 25 mg PO .weekly 10/13/20 10/22/21 (DHEA) probenecid 500 mg tablet 500 mg PO DAILY 10/13/20 10/22/21 resveratrol 100 mg capsule 100 mg PO BID 10/13/20 10/22/21 spironolactone 25 mg tablet 25 mg PO DAILY 10/13/20 10/22/21 testosterone 50 mg/5 gram (1 %) 50 mg transdermal DAILY 10/13/20 10/22/21 transdermal gel thyroid 60 mg tablet 60 mg PO DAILY 10/13/20 10/22/21 torsemide 20 mg tablet 40 mg PO BID 10/13/20 10/22/21 carvedilol 12.5 mg tablet 6.25 mg PO BID 10/22/21 10/22/21 Previous Rx's Medication Instructions Recorded finasteride 5 mg tablet 5 mg PO BEDTIME #90 tabs 11/07/21 Allergies Allergy/AdvReac Type Severity Reaction Status Date / Time dextran 40 [DEXTRAN 40] Allergy Unknown Verified 01/11/22 10:52 morphine [MORPHINE] Allergy Unknown Verified 01/11/22 10:52 Review of Systems Review of Systems ROS Unobtainable: All systems reviewed & are unremarkable except as noted in HPI and below Patient History Medical History Allergies Atrial fibrillation (~2014) BPH (benign prostatic hyperplasia) BPH w urinary obs/LUTS CAD (coronary artery disease), pauma coronary artery Chicken pox Chronic systolic CHF (congestive heart failure), NYHA class 1 Congestive heart failure Coronary heart disease Elevated PSA (~2004) Essential (primary) hypertension Foot pain Ganglion cyst Gout Gout Hearing loss Heart attack Hypertension Low testosterone (~2008) Measles Mixed hyperlipidemia Mumps Osteoporosis Peripheral neuropathy Shoulder pain 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 Wears glasses Surgical History Anesthesia History of back surgery (~2009) History of circumcision 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) History of prostate biopsy History of surgery (~1998) Family History Father Prostate cancer Coronary artery disease Mother Cancer Stroke Social History marital status: number of children: 3 household members: spouse occupational status: previously employed Smoking Status: Never smoker alcohol intake: current substance use type: does not use caffeine: Yes Smoking Status: Never smoker alcohol intake frequency: 0-2 drinks per day Substance Use Type: does not use Exam Narrative Exam Narrative: GENERAL: Alert and oriented x three, male in mild distress. HEENT: Head normocephalic, atraumatic, EOMI, pupils reactive, face symmetric, moist mucous membranes NECK: Supple, full range of motion CARDIOVASCULAR: Regular rate and rhythm without murmurs, rubs or gallops. RESPIRATORY: Breath sounds equal bilaterally, no wheezes rales or rhonchi. No tachypnea or accessory muscle use. ABDOMEN: Soft, nontender. Normoactive bowel sounds all 4 quadrants. No guarding or rebound, rigidity, no mass, no bruit or pulsatile mass noted. : No CVA tenderness EXTREMITIES: Normal range of motion, no clubbing or edema. Neurologically intact. Cap refill less than 2 seconds bilateral lower extremities. Difficult to palpate pulses on the right foot but patient states he has been told this many times in the past. He has a large area of fullness with palpable bruit on the right popliteal fossa consistent with his reported history of aneurysm. There is no warmth, erythema or cyanosis of the foot. It is very slightly tender localized but not throughout the foot. NEUROLOGICAL: Cranial nerves II through XII grossly intact. Moving all extremities SKIN: Warm, dry, no petechiae, no rashes or lesions. Initial Vital Signs Initial Vital Signs: Vital Signs Temperature 97.8 F 01/11/22 10:35 Pulse Rate 80 01/11/22 10:35 Respiratory Rate 18 01/11/22 10:35 Blood Pressure 98/50 L 01/11/22 10:35 Pulse Oximetry 98 01/11/22 10:35 Oxygen Delivery Method 01/11/22 10:35 Course Orders Ordered: Discontinued Medications Sodium Chloride (Normal Saline 0.9%) 1,000 mls @ 500 mls/hr IV BOLUS ONE Stop: 01/11/22 16:25 Last Infusion: 01/11/22 15:18 Dose: 0 mls/hr Documented By: Admin: 01/11/22 14:00 Dose: 500 mls/hr Documented By: CHRISTOPHER Vital Signs Vital signs: Vital Signs - 8 hr 01/11/22 11:11 01/11/22 11:11 01/11/22 11:30 Pulse Rate 80 Respiratory Rate 22 Blood Pressure 94/53 L 86/51 L Pulse Oximetry 97 01/11/22 11:30 01/11/22 11:33 01/11/22 11:33 Pulse Rate 80 80 Respiratory Rate 21 22 Blood Pressure 93/54 L Pulse Oximetry 97 96 01/11/22 11:45 01/11/22 11:45 01/11/22 12:00 Pulse Rate 80 Respiratory Rate 21 Blood Pressure 99/54 L 103/58 L Pulse Oximetry 98 01/11/22 12:00 01/11/22 12:15 01/11/22 12:15 Pulse Rate 80 79 Respiratory Rate 15 22 Blood Pressure 101/52 L Pulse Oximetry 97 98 01/11/22 12:30 01/11/22 12:30 01/11/22 12:45 Pulse Rate 80 80 Respiratory Rate 24 17 Blood Pressure 95/48 L Pulse Oximetry 97 97 01/11/22 12:45 01/11/22 13:00 01/11/22 13:00 Pulse Rate 80 Respiratory Rate 24 Blood Pressure 99/50 L 115/54 L Pulse Oximetry 97 01/11/22 13:15 01/11/22 13:15 01/11/22 13:30 Pulse Rate 80 Respiratory Rate 20 Blood Pressure 91/51 L 101/55 L Pulse Oximetry 96 01/11/22 13:30 01/11/22 13:41 01/11/22 13:41 Pulse Rate 80 80 Respiratory Rate 22 22 Blood Pressure 103/54 L Pulse Oximetry 96 98 01/11/22 13:42 01/11/22 13:42 01/11/22 13:56 Pulse Rate 80 Respiratory Rate 22 Blood Pressure 107/54 L 106/55 L Pulse Oximetry 98 01/11/22 13:56 01/11/22 14:00 01/11/22 14:30 Pulse Rate 80 80 80 Respiratory Rate 22 22 23 Blood Pressure Pulse Oximetry 01/11/22 14:52 01/11/22 14:52 01/11/22 15:00 Pulse Rate 80 Respiratory Rate 21 Blood Pressure 98/53 L 101/53 L Pulse Oximetry 01/11/22 15:00 01/11/22 15:15 01/11/22 15:15 Pulse Rate 80 80 Respiratory Rate 18 23 Blood Pressure 112/56 L Pulse Oximetry 01/11/22 15:30 01/11/22 15:30 01/11/22 15:45 Pulse Rate 80 Respiratory Rate 21 Blood Pressure 105/53 L 124/59 L Pulse Oximetry 01/11/22 15:45 01/11/22 16:00 01/11/22 16:01 Pulse Rate 80 80 Respiratory Rate 22 22 Blood Pressure 110/51 L Pulse Oximetry 01/11/22 16:01 01/11/22 16:15 01/11/22 16:15 Pulse Rate 80 80 Respiratory Rate Blood Pressure 110/56 L Pulse Oximetry 01/11/22 16:30 01/11/22 16:30 Pulse Rate 80 Respiratory Rate 18 Blood Pressure 110/53 L Pulse Oximetry MDM - Chest Pain Lab Data Result diagrams: 01/11/22 10:58 01/11/22 10:58 Labs: Lab Results 01/11/22 01/11/22 01/11/22 Range/Units 10:58 10:58 13:50 WBC 8.2 (4.5-11.0) X10^3/uL RBC 3.24 L (4.5-5.9) X10^6/uL Hgb 10.7 L (13.5-17.5) g/dL Hct 31.4 L (41-53) % MCV 96.8 (80-100) fL MCH 33.1 (26-34) PG MCHC 34.2 (30-36) % RDW 14.5 (11.6-14.8) % Plt Count 280 (150-400) X10^3/uL Neut % (Auto) 79.0 H (50-75) % Lymph % (Auto) 8.2 L (25-40) % Sutter % (Auto) 10.3 (3-14) % Eos % (Auto) 1.9 L (2-4) % Baso % (Auto) 0.6 (0-2) % Neut # (Auto) 6500 (7237-5410) /uL Lymph # (Auto) 700 L (6962-4347) /uL Sutter # (Auto) 800 (0-900) /uL Eos # (Auto) 200 (0-450) /uL Baso # (Auto) 100 (0-100) /uL Sodium 130 L (137-145) mmol/L Potassium 4.6 (3.4-5.1) mmol/L Chloride 94 L (98-107) mmol/L Carbon Dioxide 23 (22-32) mmol/L BUN 94 H (9-20) mg/dL Creatinine 2.73 H (0.66-1.25) mg/dL Estimated GFR 22 L (>60) mL/min BUN/Creatinine Ratio 34.4 H (6-22) Glucose 104 (80-110) mg/dL Calcium 9.6 (8.4-10.2) mg/dL Magnesium 2.8 H (1.6-2.3) mg/dL Total Bilirubin 0.7 (0.2-1.3) mg/dL AST 24 (17-59) IU/L ALT 15 (<50) IU/L Alkaline Phosphatase 97 (38-126) U/L Total Creatine Kinase 176 H (55-170) U/L CK-MB (CK-2) 3.67 H (<2.37) ng/mL CK-MB (CK-2) Rel Index 2.1 (1.5-5.0) % Troponin I 0.028 0.020 (0.01-0.034) ng/mL NT-Pro-B Natriuret Pep (<450) pg/mL Total Protein 7.4 (6.3-8.2) g/dL Albumin 4.2 (3.5-5.0) g/dL Globulin 3.2 (1.7-4.1) g/dL Albumin/Globulin Ratio 1.3 (1.0-2.8) Lipase 313 H (23-300) U/L 01/11/22 Range/Units 13:50 WBC (4.5-11.0) X10^3/uL RBC (4.5-5.9) X10^6/uL Hgb (13.5-17.5) g/dL Hct (41-53) % MCV (80-100) fL MCH (26-34) PG MCHC (30-36) % RDW (11.6-14.8) % Plt Count (150-400) X10^3/uL Neut % (Auto) (50-75) % Lymph % (Auto) (25-40) % Sutter % (Auto) (3-14) % Eos % (Auto) (2-4) % Baso % (Auto) (0-2) % Neut # (Auto) (2316-9679) /uL Lymph # (Auto) (6905-3212) /uL Sutter # (Auto) (0-900) /uL Eos # (Auto) (0-450) /uL Baso # (Auto) (0-100) /uL Sodium (137-145) mmol/L Potassium (3.4-5.1) mmol/L Chloride (98-107) mmol/L Carbon Dioxide (22-32) mmol/L BUN (9-20) mg/dL Creatinine (0.66-1.25) mg/dL Estimated GFR (>60) mL/min BUN/Creatinine Ratio (6-22) Glucose (80-110) mg/dL Calcium (8.4-10.2) mg/dL Magnesium (1.6-2.3) mg/dL Total Bilirubin (0.2-1.3) mg/dL AST (17-59) IU/L ALT (<50) IU/L Alkaline Phosphatase (38-126) U/L Total Creatine Kinase (55-170) U/L CK-MB (CK-2) (<2.37) ng/mL CK-MB (CK-2) Rel Index (1.5-5.0) % Troponin I (0.01-0.034) ng/mL NT-Pro-B Natriuret Pep 5010 H (<450) pg/mL Total Protein (6.3-8.2) g/dL Albumin (3.5-5.0) g/dL Globulin (1.7-4.1) g/dL Albumin/Globulin Ratio (1.0-2.8) Lipase (23-300) U/L Urine Dip Bedside Urine Glucose Negative Bedside Urine Bilirubin - Negative Bedside Urine Ketone - Negative Urine Specific [place] 1.015 Bedside Urine Occult Blood - Negative Bedside Urine pH 6.0 Bedside Urine Protein - Negative Bedside Urine Urobilinogen - Negative Bedside Urine Nitrite - Negative Bedside Urine Leukocytes - Negative Esterase Imaging Data Chest x-ray: Radiologist's Impression: [address] [address] XRay Report Signed Patient: Roger Juarez MR#: [id number] : 1935 Acct:[id number] Age/Sex: 86 / M Date of Service: 01/11/22 Loc: ED Accession Number: [id number] ?? Procedure: XR chest 1V Ordering Provider: Shawna Townsend D.O. PROCEDURE:? XR CHEST 1V ? INDICATIONS:? chest pain ? TECHNIQUE:? One view of the chest was acquired.? ? COMPARISON:? [facility], CR, XR CHEST 2V, 09/23/2021, 16:24.? [facility], CR, XR CHEST 1V, 09/25/2021, 11:40.? [facility], CR, XR CHEST 1V, 09/27/2021, 14:21. ? FINDINGS:? ? Surgical changes and devices:? A mediastinal radiopaque device is again seen. An AICD is seen.? The leads are seen in stable positions.? ? Lungs and pleura:? An incomplete inspiratory result is noted, causing a crowded appearance to the lung markings.? No focal infiltrates are seen.? Mild interstitial prominence can be seen.? No pneumothorax or significant pleural effusions are seen. ? ? Mediastinum:? The cardiac contours are mildly enlarged. The aorta demonstrates calcification and tortuosity. ? Bones and chest wall:? No suspicious bony lesions.? Age-appropriate bony degenerative changes are seen.? Mild dextroconvex scoliotic curvature is seen.? ? Overlying soft tissues appear unremarkable.? ? IMPRESSION:? Mild cardiomegaly and interstitial prominence. Please correlate with patient presentation, physical examination findings, and laboratory values for congestive heart failure. ? ? Postoperative and degenerative changes are seen.? ? ? Dictated by: Xu Newsome M.D. on 01/11/2022 at 10:21 ? ? Approved by: Xu Newsome M.D. on 01/11/2022 at 10:22?? US R leg: Radiologist's Impression: [address] [address] Ultrasound Report Signed Patient: Roger Juarez MR#: [id number] : 1935 Acct:[id number] Age/Sex: 86 / M Date of Service: 01/11/22 Loc: ED Accession Number: [id number] ?? Procedure: US arterial duplex LE RT Ordering Provider: Shawna Townsend D.O. PROCEDURE:? US ARTERIAL DUPLEX LE RT ? INDICATIONS:? PAIN AT SITE OF POPLITEAL ANEURYSM ? TECHNIQUE:? Color and pulse Doppler interrogation was performed of the right lower extremity arterial system, with image documentation.? ? COMPARISON:? None. ? FINDINGS:? Common femoral artery:? 121 cm/sec, with triphasic flow.? Deep femoral artery:? 106 cm/sec, with triphasic flow.? Proximal superficial femoral artery:? 122 cm/sec, with triphasic flow.? Mid superficial femoral artery:? 157 cm/sec, with triphasic flow.? Distal superficial femoral artery:? 193 cm/sec, with triphasic flow.? Popliteal artery:? 20 cm/sec.? There is a 5.5 x 4.7 cm right popliteal artery aneurysm.? Eccentric thrombus is present along the wall with a luminal size of 3.2 x 2.8 cm. Posterior tibial artery:? 11 cm/sec, with monophasic flow.? Anterior tibial artery/dorsalis pedis:? 8 cm/sec, with biphasic flow.? Hanna-scale imaging description:? Popliteal artery aneurysm with eccentric thrombus visualized. ? ? IMPRESSION:? ? 1. Right popliteal artery aneurysm as above.? No definite extravasation or adjacent hematoma visualized.? If further characterization is warranted, CTA with runoff of the right lower extremity recommended. ? These findings were discussed with Dr. Townsend at 4:10 p.m. On January 11, 2022. ? Dictated by: Estrella Aguila M.D. on 01/11/2022 at 16:04 ? ? Approved by: Estrella Aguila M.D. on 01/11/2022 at 16:17? ECG Data Attestation: I personally reviewed and interpreted this ECG as follows: Prior ECG tracings: available for review Interpretation: Ventricularly paced rhythm, rate 82 QRS of 168 QTC 500. Patient has prior from 3/3/22. Ventricularly paced rhythm rate 80, VT 164 QTC of 502. Does not show any changes and is actively paced. MDM Narrative Medical decision making narrative: This is a 86-year-old male who comes in with complaint of low blood pressure overnight he was symptomatic he still continues to be somewhat low with 100 systolic here. He has been on multiple medications and stop to in the last 3 weeks. Patient troponin was not significantly elevated but 0.02 a and repeat is 0.02. Patient has elevated BNP but no chest pain, no shortness of breath. His blood pressure here has not been significantly low. He has stopped his isosorbide as well as spironolactone for low blood pressure which I encouraged to continue at this time. Patient's labs do not show other clear causes for his low blood pressure overnight. He was and urged to follow up regarding this but his popliteal aneurysm has significantly enlarged attempting to reach vascular which he has seen at [facility] about 7 years ago according to patient and had been recommended surgery but for some reason they canceled the surgery because he would ?loses like?. They also told the patient that they would ?see him back in a couple years? patient had some social issues that he felt or necessitating him bleeding before speaking with vascular and he did leave against medical advice but is well aware of the potential to lose his leg, that he is not recommended to leave at this time until we spoken with vascular surgery. He is willing to be contacted by phone after I speak with them. I spoke with Dr. Aldrich, vascular surgery at [facility]. He would very much like to see the patient. He is unclear as to the patient's past history why he will be told he did the surgery but feels patient is very appropriate for candidate. On examination here he did not have good pulses but has been told that in the past he had excellent cap refill he had some discomfort behind the knee for he has clear enlargement and a palpable thrill. We discussed patient had left against medical advice but I am going to reach out to him he asked the patient to be seen Friday morning if he continues to be stable at [phone] this is our office number and they would like to see him Friday. He is aware patient is on Eliquis and states he does not any to stop or hold at this time. If something changes over the weekend patient has been encouraged to return and they would be happy to see him sooner. I did leave a patient at his voicemail but there was no call back. I did give him the contact information for vascular encouraged to return. 01/12/22: Updated: Patient did call today I spoke with him personally. He was given the phone number by vascular surgery to call the office Friday morning 1st thing to be seen on Friday01/14/22 in the office. Patient is aware to call 1st thing in the morning. Also once again instructed to return emergently if anything is changing. Discharge Plan Departure Patient Disposition: Home Clinical Impression: Hypotension, Popliteal aneurysm Activity Restrictions/Additional Instructions: You have a right popliteal artery aneurysm that appears larger than on your prior imaging. I have calls out to vascular surgery at [facility] because you are at risk of this ruptured and causing bleeding and potentially losing your leg or life. Please call your vascular surgeon at [facility] today or 1st thing in the morning to follow-up shortly as you have not lead to await their recommendations. You are welcome to return for re-evaluation at any time. I would continue to hold your blood pressure medications at home. You can continue your other home medications currently. Please return for increasing pain, swelling of the leg, lightheadedness or passing out, chest pain or shortness of breath, persistent vomiting or other new or concerning symptoms. Prescriptions: No Action isosorbide dinitrate 30 mg tablet 30 mg PO DAILY Rx Instructions: allow nitrate-free interval of 12-14 hrs per 24-hr period testosterone 50 mg/5 gram (1 %) gel 50 mg transdermal DAILY torsemide 20 mg tablet 40 mg PO BID spironolactone 25 mg tablet 25 mg PO DAILY Eliquis 2.5 mg tablet 2.5 mg PO BID mecobalamin (vitamin B12) 10,000 mcg recon soln 800 mcg SUBCUT WEEKLY letrozole 2.5 mg tablet 2.5 mg PO DAILY thyroid 60 mg tablet 60 mg PO DAILY probenecid 500 mg tablet 500 mg PO DAILY prasterone (dhea) [DHEA] 25 mg capsule 25 mg PO .weekly ascorbic acid (vitamin C) 1,000 mg tablet 1 g PO BID coenzyme Q10 [CoQ-10] 100 mg capsule 100 mg PO DAILY mecobalamin (vitamin B12) 5,000 mcg lozenge 100 mcg PO BEDTIME Rx Instructions: allow to dissolve in mouth OR may chew lightly before swallowing Icarin 60 mg PO BID resveratrol 100 mg capsule 100 mg PO BID carvedilol 12.5 mg tablet 6.25 mg PO BID Rx Instructions: must administer with a meal/food finasteride 5 mg tablet 5 mg PO BEDTIME Qty: 90 3RF Referrals: Ry Ash MD [Primary Care Provider] - Stand Alone Forms: Against Medical Advice Visit Report Forms: Patient Portal/API
[2022-01-11] MEDS: SODIUM CHLORIDE 0.9% 1,000 ML 500 ML IV (14:00)
--- NOTE | 2022-01-11 14:05 | PC.NURSE ---
Pt ambulated to BR without feeling dizzy or lightheaded. Orthostatic BPs done before walking and were negative.
--- NOTE | 2022-01-11 14:16 | DI.US.S_ITS ---
PROCEDURE: US ARTERIAL DUPLEX LE RT INDICATIONS: PAIN AT SITE OF POPLITEAL ANEURYSM TECHNIQUE: Color and pulse Doppler interrogation was performed of the right lower extremity arterial system, with image documentation. COMPARISON: None. FINDINGS: Common femoral artery: 121 cm/sec, with triphasic flow. Deep femoral artery: 106 cm/sec, with triphasic flow. Proximal superficial femoral artery: 122 cm/sec, with triphasic flow. Mid superficial femoral artery: 157 cm/sec, with triphasic flow. Distal superficial femoral artery: 193 cm/sec, with triphasic flow. Popliteal artery: 20 cm/sec. There is a 5.5 x 4.7 cm right popliteal artery aneurysm. Eccentric thrombus is present along the wall with a luminal size of 3.2 x 2.8 cm. Posterior tibial artery: 11 cm/sec, with monophasic flow. Anterior tibial artery/dorsalis pedis: 8 cm/sec, with biphasic flow. Hanna-scale imaging description: Popliteal artery aneurysm with eccentric thrombus visualized. IMPRESSION: 1. Right popliteal artery aneurysm as above. No definite extravasation or adjacent hematoma visualized. If further characterization is warranted, CTA with runoff of the right lower extremity recommended. These findings were discussed with Dr. Townsend at 4:10 p.m. On January 11, 2022. Dictated by: Estrella Aguila M.D. on 01/11/2022 at 16:04 Approved by: Estrella Aguila M.D. on 01/11/2022 at 16:17
[2022-01-11 16:56] LABS: NT-proBNP (BNP-Adult 18+) 5010 pg/mL (<450)
== END 2022-01-11 17:06 | disposition home or self-care (01) ==
PROVIDERS: Emergency Provider Emergency Medicine; PCP Internal Medicine
DX: I95.9 Hypotension, unspecified (principal); I72.4 Aneurysm of artery of lower extremity; Z79.01 Long term (current) use of anticoagulants; Z95.0 Presence of cardiac pacemaker
CPT/HCPCS: 71045; 80053; 81003; 82550; 82553; 83690; 83735; 83880; 84484; 85025; 93005; 93926; 99284

== ENCOUNTER → 2022-02-04 16:38 | Outpatient (CLI) | payer MEDICARE, SELFPAY ==
[2021-10-22 15:30] VITALS: BMI 21.7
[2022-02-04 17:17] LABS: Hematocrit 31.4 % (41-53); Hemoglobin 10.6 g/dL (13.5-17.5); Mean Corpuscular HGB Conc 33.9 % (30-36); Mean Corpuscular Hemoglobin 32.8 PG (26-34); Mean Corpuscular Volume 96.6 fL (80-100); Platelet Count 379 X10^3/uL (150-400); Red Blood Cell Count 3.25 X10^6/uL (4.5-5.9); Red Cell Distribution Width 16.4 % (11.6-14.8); White Blood Cell Count 7.5 X10^3/uL (4.5-11.0)
[2022-02-04 17:34] LABS: Alanine Aminotransferase 14 IU/L (<50); Albumin 4.3 g/dL (3.5-5.0); Albumin Globulin Ratio 1.3 (1.0-2.8); Alkaline Phosphatase 143 U/L (38-126); Aspartate Aminotransferase 24 IU/L (17-59); BUN Creatinine Ratio 25.6 (6-22); Bilirubin Total 0.6 mg/dL (0.2-1.3); Blood Urea Nitrogen 50 mg/dL (9-20); Calcium 9.7 mg/dL (8.4-10.2); Carbon Dioxide 30 mmol/L (22-32); Chloride 93 mmol/L (98-107); Estimated Glomerular Filt Rate 33 mL/min (>60); Globulin 3.3 g/dL (1.7-4.1); Glucose 103 mg/dL (80-110); HEMOLYSIS < 15 (0-50); Sodium 133 mmol/L (137-145); Total Protein 7.6 g/dL (6.3-8.2)
[2022-02-04 17:39] LABS: Hemoglobin A1C% w Est Avg Glu 5.7 % (4.0-6.0)
== END ==
PROVIDERS: PCP Internal Medicine; Referring Provider Internal Medicine; Visit Provider Internal Medicine
DX: I50.22 Chronic systolic (congestive) heart failure (principal); E11.9 Type 2 diabetes mellitus without complications; E11.59 Type 2 diabetes mellitus with other circulatory complications; I72.4 Aneurysm of artery of lower extremity; N18.32 Chronic kidney disease, stage 3b
CPT/HCPCS: 36415; 80053; 83036; 85027

== ENCOUNTER 2022-03-24 09:03 | Emergency (ER) | payer MEDICARE, SELFPAY ==
[2021-10-22 15:30] VITALS: BMI 21.7
[2022-03-24] VITALS (10 sets, daily range): BP systolic 92–115; BP diastolic 51–56; PULSE 79–80; RESP 18–24; TEMP 36.4; O2SAT 97–99
--- NOTE | 2022-03-24 09:36 | DI.RAD.S_ITS ---
PROCEDURE: XR CHEST 1V INDICATIONS: chest pain TECHNIQUE: One view of the chest was acquired. COMPARISON: [facility], CR, XR CHEST 1V, 01/11/2022, 10:57. FINDINGS: Surgical changes and devices: Left-sided pacer. Lungs and pleura: Mild basilar predominant reticulonodular pulmonary opacity, as before, which appears chronic No pleural effusions or pneumothorax. Mediastinum: Mediastinal contours appear normal. Heart size is enlarged. Bones and chest wall: No suspicious bony lesions. Overlying soft tissues appear unremarkable. IMPRESSION: No acute process. Dictated by: Chelsie Leyva M.D. on 03/24/2022 at 9:46 Approved by: Chelsie Leyva M.D. on 03/24/2022 at 9:46
[2022-03-24 10:10] LABS: Add Manual Diff / Slide Review NO; Basophils Absolute Auto 0 /uL (0-100); Basophils Percent Auto 0.6 % (0-2); Eosinophils Absolute Auto 200 /uL (0-450); Eosinophils Percent Auto 3.7 % (2-4); Hematocrit 28.3 % (41-53); Hemoglobin 9.7 g/dL (13.5-17.5); Lymphocytes Absolute Auto 800 /uL (1100-4500); Lymphocytes Percent Auto 12.8 % (25-40); Mean Corpuscular HGB Conc 34.3 % (30-36); Mean Corpuscular Hemoglobin 33.8 PG (26-34); Mean Corpuscular Volume 98.5 fL (80-100); Monocytes Absolute Auto 600 /uL (0-900); Monocytes Percent Auto 10.3 % (3-14); Neutrophils Absolute Auto 4300 /uL (1500-7000); Neutrophils Percent Auto 72.6 % (50-75); Platelet Count 204 X10^3/uL (150-400); Red Blood Cell Count 2.88 X10^6/uL (4.5-5.9); Red Cell Distribution Width 17.2 % (11.6-14.8); White Blood Cell Count 5.9 X10^3/uL (4.5-11.0)
[2022-03-24 10:15] LABS: INR 1.6 (0.9-1.3); Prothrombin Time 18.7 SECONDS (10.1-12.7)
[2022-03-24 10:18] LABS: Lactate (Lactic Acid) 2.1 mmol/L (0.7-2.1); PTT Partial Thromboplastin Tim 31 SECONDS (26-36)
[2022-03-24 10:24] LABS: Alanine Aminotransferase 18 IU/L (<50); Albumin Globulin Ratio 1.3 (1.0-2.8); Alkaline Phosphatase 95 U/L (38-126); Aspartate Aminotransferase 22 IU/L (17-59); BUN Creatinine Ratio 25.9 (6-22); Bilirubin Total 0.6 mg/dL (0.2-1.3); Blood Urea Nitrogen 63 mg/dL (9-20); Calcium 9.6 mg/dL (8.4-10.2); Carbon Dioxide 26 mmol/L (22-32); Chloride 95 mmol/L (98-107); Creatine Kinase 92 U/L (55-170); Estimated Glomerular Filt Rate 25 mL/min (>60); Globulin 3.2 g/dL (1.7-4.1); Glucose 131 mg/dL (80-110); HEMOLYSIS < 15 (0-50); Lipase 278 U/L (23-300); Magnesium 2.2 mg/dL (1.6-2.3); Potassium 3.7 mmol/L (3.4-5.1); Sodium 130 mmol/L (137-145); Total Protein 7.2 g/dL (6.3-8.2)
--- NOTE | 2022-03-24 10:31 | ED.GENADULT ---
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 Patient presents today states he is just feeling bad he does not really have a specific symptomatology otherwise, he notes no fevers but he had sweats at home that he and his both share. He denies headaches, he denies chest pain or pressure, he denies new shortness of breath or exertional dyspnea, no abdominal, back or flank pain. He has noted that he is only urinating small amounts and having some sensation of incomplete emptying with no dysuria. Patient and note that his renal function was a little bumped on labs 3 weeks ago, patient has been constipated with only small stool amounts over the past 5 or 6 days which have been pellets and frequent brownish in coloration with no black or blood. Patient has had decreased appetite. Denies any swelling in his extremities although he notes his aneurysm on the right popliteal region is harder today it was a little bit softer but no increase in pain. Yes appreciate some bruising over his pacemaker in the last 4 days but does not recall specific trauma. He states he is on Eliquis and bruises very easily. He has not had any other recent medication changes according to the patient. Related Data Home Medications Medication Instructions Recorded Confirmed Icarin 60 mg PO BID 10/13/20 02/04/22 apixaban 2.5 mg tablet (Eliquis) 2.5 mg PO BID 10/13/20 02/04/22 ascorbic acid (vitamin C) 1,000 mg 1 g PO BID 10/13/20 02/04/22 tablet coenzyme Q10 100 mg capsule 100 mg PO DAILY 10/13/20 02/04/22 (CoQ-10) mecobalamin (vitamin B12) 5,000 100 mcg PO BEDTIME 10/13/20 02/04/22 mcg lozenge prasterone (dhea) 25 mg capsule 25 mg PO .weekly 10/13/20 02/04/22 (DHEA) probenecid 500 mg tablet 500 mg PO DAILY 10/13/20 02/04/22 resveratrol 100 mg capsule 100 mg PO BID 10/13/20 02/04/22 spironolactone 25 mg tablet 25 mg PO DAILY 10/13/20 02/04/22 testosterone 50 mg/5 gram (1 %) 50 mg transdermal DAILY 10/13/20 02/04/22 transdermal gel allopurinol 100 mg tablet 100 mg PO DAILY 02/04/22 02/04/22 carvedilol 12.5 mg tablet 12.5 mg PO BID 02/04/22 02/04/22 cyanocobalamin (vitamin B-12) 1,000 mcg IM QWEEK 02/04/22 02/04/22 1,000 mcg/mL injection solution ferrous sulfate 325 mg (65 mg 325 mg PO DAILY 02/04/22 02/04/22 iron) tablet (FeroSul) glipizide 2.5 mg tablet, extended 2.5 mg PO DAILY 02/04/22 02/04/22 release 24 hr letrozole 2.5 mg tablet 2.5 mg PO 3XW 02/04/22 02/04/22 thyroid (pork) 60 mg tablet (BODY MASKER 60 mg PO DAILY 02/04/22 02/04/22 Thyroid) torsemide 20 mg tablet 20 mg PO 6XD 02/04/22 02/04/22 valsartan 40 mg tablet 40 mg PO DAILY 02/04/22 02/04/22 Previous Rx's Medication Instructions Recorded finasteride 5 mg tablet 5 mg PO BEDTIME #90 tabs 11/07/21 oxycodone 5 mg tablet 5 mg PO BID PRN pain #30 tabs 02/28/22 Allergies Allergy/AdvReac Type Severity Reaction Status Date / Time dextran 40 [DEXTRAN 40] Allergy Unknown Verified 03/24/22 09:43 morphine [MORPHINE] Allergy Unknown Verified 03/24/22 09:43 Review of Systems Review of Systems ROS Unobtainable: All systems reviewed & are unremarkable except as noted in HPI and below Patient History Medical History Allergies Aneurysm of right popliteal artery Atrial fibrillation (~2014) BPH (benign prostatic hyperplasia) BPH w urinary obs/LUTS CAD (coronary artery disease), [place] coronary artery Chicken pox Chronic systolic CHF (congestive heart failure), NYHA class 1 Congestive heart failure Coronary heart disease Elevated PSA (~2004) Essential (primary) hypertension Foot pain Ganglion cyst Gout Gout Hearing loss Heart attack Hypertension Low testosterone (~2008) Measles Mixed hyperlipidemia Mumps Osteoporosis Peripheral neuropathy Shoulder pain 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 Wears glasses Surgical History Anesthesia History of back surgery (~2009) History of circumcision 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) History of prostate biopsy History of surgery (~1998) Family History Father Prostate cancer Coronary artery disease Mother Cancer Stroke Social History marital status: number of children: 3 household members: spouse occupational status: previously employed Smoking Status: Never smoker alcohol intake: current substance use type: does not use caffeine: Yes Smoking Status: Never smoker alcohol intake frequency: 0-2 drinks per day Substance Use Type: does not use Exam Narrative Exam Narrative: GENERAL: Alert and oriented x three, elderly male in mild distress. HEENT: Head normocephalic, atraumatic, EOMI, pupils reactive, face symmetric, moist mucous membranes NECK: Supple, full range of motion CARDIOVASCULAR: Regular rate and rhythm without murmurs, rubs or gallops. No JVD. No swelling bilateral lower extremities. Patient does have some ecchymosis that is greenish coloration over his pacemaker no hematomas palpated. Patient has nontender. RESPIRATORY: Breath sounds equal bilaterally, no wheezes rales or rhonchi. ABDOMEN: Soft, nontender. Normoactive bowel sounds all 4 quadrants. No guarding or rebound, rigidity, no mass : No CVA tenderness EXTREMITIES: Normal range of motion, no clubbing or edema. Neurovascularly intact. Patient has fullness in the right popliteal region, no bruit or thrill. Patient has nontender, no ecchymosis bruising or erythema. Patient has 2+ pulses bilateral lower extremities with normal cap refill. Normal range of motion. NEUROLOGICAL: Cranial nerves II through XII grossly intact. Moving all extremities SKIN: Warm, dry, no petechiae, no rashes or lesions. Initial Vital Signs Initial Vital Signs: Vital Signs Pulse Rate 80 03/24/22 09:30 Respiratory Rate 18 03/24/22 09:30 Blood Pressure 106/52 L 03/24/22 09:30 Pulse Oximetry 98 03/24/22 09:30 Course Orders Ordered: Discontinued Medications Sodium Chloride (Normal Saline 0.9%) 1,000 mls @ 125 mls/hr IV CONT NEAL Last Infusion: 03/24/22 14:41 Dose: 0 mls/hr Documented By: Admin: 03/24/22 13:03 Dose: 125 mls/hr Documented By: JAMESON Vital Signs Vital signs: Vital Signs - 8 hr 03/24/22 12:40 03/24/22 13:00 03/24/22 13:30 Pulse Rate 80 80 80 Respiratory Rate 20 21 Pulse Oximetry 99 97 Oxygen Delivery Method Room Air Medical Decision Making Lab Data Result diagrams: 03/24/22 09:49 03/24/22 09:49 Labs: Lab Results 03/24/22 03/24/22 03/24/22 Range/Units 09:49 09:49 09:49 WBC 5.9 (4.5-11.0) X10^3/uL RBC 2.88 L (4.5-5.9) X10^6/uL Hgb 9.7 L (13.5-17.5) g/dL Hct 28.3 L (41-53) % MCV 98.5 (80-100) fL MCH 33.8 (26-34) PG MCHC 34.3 (30-36) % RDW 17.2 H (11.6-14.8) % Plt Count 204 (150-400) X10^3/uL Neut % (Auto) 72.6 (50-75) % Lymph % (Auto) 12.8 L (25-40) % [place] % (Auto) 10.3 (3-14) % Eos % (Auto) 3.7 (2-4) % Baso % (Auto) 0.6 (0-2) % Neut # (Auto) 4300 (4002-0561) /uL Lymph # (Auto) 800 L (6083-4448) /uL [place] # (Auto) 600 (0-900) /uL Eos # (Auto) 200 (0-450) /uL Baso # (Auto) 0 (0-100) /uL PT 18.7 H (10.1-12.7) SECONDS INR 1.6 H (0.9-1.3) APTT 31 (26-36) SECONDS Sodium 130 L (137-145) mmol/L Potassium 3.7 (3.4-5.1) mmol/L Chloride 95 L (98-107) mmol/L Carbon Dioxide 26 (22-32) mmol/L BUN 63 H (9-20) mg/dL Creatinine 2.43 H (0.66-1.25) mg/dL Estimated GFR 25 L (>60) mL/min BUN/Creatinine Ratio 25.9 H (6-22) Glucose 131 H (80-110) mg/dL Lactate (0.7-2.1) mmol/L Calcium 9.6 (8.4-10.2) mg/dL Magnesium 2.2 (1.6-2.3) mg/dL Total Bilirubin 0.6 (0.2-1.3) mg/dL AST 22 (17-59) IU/L ALT 18 (<50) IU/L Alkaline Phosphatase 95 (38-126) U/L Total Creatine Kinase 92 (55-170) U/L CK-MB (CK-2) TNP CK-MB (CK-2) Rel Index TNP Troponin I 0.037 H (0.01-0.034) ng/mL NT-Pro-B Natriuret Pep (<450) pg/mL Total Protein 7.2 (6.3-8.2) g/dL Albumin 4.0 (3.5-5.0) g/dL Globulin 3.2 (1.7-4.1) g/dL Albumin/Globulin Ratio 1.3 (1.0-2.8) Lipase 278 (23-300) U/L SARS-CoV-2 (PCR) (Negative) 03/24/22 03/24/22 03/24/22 Range/Units 09:49 09:49 09:53 WBC (4.5-11.0) X10^3/uL RBC (4.5-5.9) X10^6/uL Hgb (13.5-17.5) g/dL Hct (41-53) % MCV (80-100) fL MCH (26-34) PG MCHC (30-36) % RDW (11.6-14.8) % Plt Count (150-400) X10^3/uL Neut % (Auto) (50-75) % Lymph % (Auto) (25-40) % [place] % (Auto) (3-14) % Eos % (Auto) (2-4) % Baso % (Auto) (0-2) % Neut # (Auto) (2925-5335) /uL Lymph # (Auto) (0157-2436) /uL [place] # (Auto) (0-900) /uL Eos # (Auto) (0-450) /uL Baso # (Auto) (0-100) /uL PT (10.1-12.7) SECONDS INR (0.9-1.3) APTT (26-36) SECONDS Sodium (137-145) mmol/L Potassium (3.4-5.1) mmol/L Chloride (98-107) mmol/L Carbon Dioxide (22-32) mmol/L BUN (9-20) mg/dL Creatinine (0.66-1.25) mg/dL Estimated GFR (>60) mL/min BUN/Creatinine Ratio (6-22) Glucose (80-110) mg/dL Lactate 2.1 (0.7-2.1) mmol/L Calcium (8.4-10.2) mg/dL Magnesium (1.6-2.3) mg/dL Total Bilirubin (0.2-1.3) mg/dL AST (17-59) IU/L ALT (<50) IU/L Alkaline Phosphatase (38-126) U/L Total Creatine Kinase (55-170) U/L CK-MB (CK-2) CK-MB (CK-2) Rel Index Troponin I (0.01-0.034) ng/mL NT-Pro-B Natriuret Pep 8690 H (<450) pg/mL Total Protein (6.3-8.2) g/dL Albumin (3.5-5.0) g/dL Globulin (1.7-4.1) g/dL Albumin/Globulin Ratio (1.0-2.8) Lipase (23-300) U/L SARS-CoV-2 (PCR) Negative (Negative) 03/24/22 Range/Units 12:26 WBC (4.5-11.0) X10^3/uL RBC (4.5-5.9) X10^6/uL Hgb (13.5-17.5) g/dL Hct (41-53) % MCV (80-100) fL MCH (26-34) PG MCHC (30-36) % RDW (11.6-14.8) % Plt Count (150-400) X10^3/uL Neut % (Auto) (50-75) % Lymph % (Auto) (25-40) % [place] % (Auto) (3-14) % Eos % (Auto) (2-4) % Baso % (Auto) (0-2) % Neut # (Auto) (4029-6031) /uL Lymph # (Auto) (8446-9400) /uL [place] # (Auto) (0-900) /uL Eos # (Auto) (0-450) /uL Baso # (Auto) (0-100) /uL PT (10.1-12.7) SECONDS INR (0.9-1.3) APTT (26-36) SECONDS Sodium (137-145) mmol/L Potassium (3.4-5.1) mmol/L Chloride (98-107) mmol/L Carbon Dioxide (22-32) mmol/L BUN (9-20) mg/dL Creatinine (0.66-1.25) mg/dL Estimated GFR (>60) mL/min BUN/Creatinine Ratio (6-22) Glucose (80-110) mg/dL Lactate (0.7-2.1) mmol/L Calcium (8.4-10.2) mg/dL Magnesium (1.6-2.3) mg/dL Total Bilirubin (0.2-1.3) mg/dL AST (17-59) IU/L ALT (<50) IU/L Alkaline Phosphatase (38-126) U/L Total Creatine Kinase (55-170) U/L CK-MB (CK-2) CK-MB (CK-2) Rel Index Troponin I 0.032 (0.01-0.034) ng/mL NT-Pro-B Natriuret Pep (<450) pg/mL Total Protein (6.3-8.2) g/dL Albumin (3.5-5.0) g/dL Globulin (1.7-4.1) g/dL Albumin/Globulin Ratio (1.0-2.8) Lipase (23-300) U/L SARS-CoV-2 (PCR) (Negative) Urine Dip Bedside Urine Glucose Negative Bedside Urine Bilirubin - Negative Bedside Urine Ketone - Negative Urine Specific [place] 1.010 Bedside Urine Occult Blood - Negative Bedside Urine pH 6.0 Bedside Urine Protein - Negative Bedside Urine Urobilinogen - Negative Bedside Urine Nitrite - Negative Bedside Urine Leukocytes - Negative Esterase Point of care testing: Urine Dip Bedside Urine Glucose Negative Bedside Urine Bilirubin - Negative Bedside Urine Ketone - Negative Urine Specific [place] 1.010 Bedside Urine Occult Blood - Negative Bedside Urine pH 6.0 Bedside Urine Protein - Negative Bedside Urine Urobilinogen - Negative Bedside Urine Nitrite - Negative Bedside Urine Leukocytes - Negative Esterase Imaging Data Chest x-ray: Radiologist's Impression: Close Chest X-Ray (Signed) Chelsie Leyva - 03/24/22 Duplex Scan Lower Extremity Artery (Signed) Estrella Aguila - 01/11/22 EKG Rpt. 01/11/22 Chest X-Ray (Signed) Xu Newsome - 01/11/22 Telemetry Strips 09/27/21 Telemetry Strips 09/27/21 Chest X-Ray (Signed) Sharonda Romero - 09/27/21 Chest X-Ray (Signed) Estrella Aguila - 09/25/21 Chest X-Ray (Signed) Arron Roberson - 09/23/[address] (Signed) Mark Kent - 09/11/[address] (Signed) Mark Kent - 09/11/21 Echocardiogram Ultrasound (Signed) Obinna Vargas - 09/11/21 Echocardiogram Ultrasound (Signed) Laura Ruiz - 03/17/18 Chest X-Ray (Signed) Nikos Padron - 03/13/[address] [address] XRay Report Signed Patient: Roger Juarez MR#: [id number] : 1935 Acct:[id number] Age/Sex: 86 / M Date of Service: 03/24/22 Loc: ED Accession Number: [id number] ?? Procedure: XR chest 1V Ordering Provider: Shawna Townsend D.O. PROCEDURE:? XR CHEST 1V ? INDICATIONS:? chest pain ? TECHNIQUE:? One view of the chest was acquired.? ? COMPARISON:? [facility], CR, XR CHEST 1V, 01/11/2022, 10:57. ? FINDINGS:? ? Surgical changes and devices:? Left-sided pacer. ? Lungs and pleura:? Mild basilar predominant reticulonodular pulmonary opacity, as before, which appears chronic No pleural effusions or pneumothorax.? ? Mediastinum:? Mediastinal contours appear normal.? Heart size is enlarged. ? Bones and chest wall:? No suspicious bony lesions.? Overlying soft tissues appear unremarkable.? ? IMPRESSION:? No acute process. ? ? Dictated by: Chelsie Leyva M.D. on 03/24/2022 at 9:46 ? ? Approved by: Chelsie Leyva M.D. on 03/24/2022 at 9:46? ECG Data Attestation: I personally reviewed and interpreted this ECG as follows: Prior ECG tracings: available for review Interpretation: Ventricular paced rhythm rate 81 QRS 166 QTC of 520. No acute changes patient has prior from 01/11/2022 which appears similar. [facility] Narrative Medical decision making narrative: This is an 86-year-old male with recent surgery of his right knee, patient that was 2 months ago he is just felt unwell he is had some sweats. Is noted to have a bump in his creatinine, patient's hemoglobin slightly low at 9.7 but close to his baseline, sodium is 130, potassium normal, BUN is elevated 63 indicating possible DOREEN although patient notes he is had some decrease amounts and feels like he is not emptying his bladder. Patient was bladder scanned, imaging was obtained to evaluate renal function as well or possible obstructive process he does know he has been constipated recently. Patient has indeterminate troponin plan to be repeated 2 hours, BNP Gentle hydration as patient has no cardiac history and large fluid bolus may worsen this. Patient also noted that his right popliteal aneurysm feels a little bit mcmahan today he is had repair but it was only somewhat successful according to the patient's family so repeat imaging for this was ordered as well. Discharge Plan Departure Patient Disposition: Home Clinical Impression: Popliteal artery aneurysm, Anemia Activity Restrictions/Additional Instructions: Follow-up with your physician for recheck. You do have a urine culture and blood cultures pending these take 40-72 hours to result if positive we would call you. Your labs today do show an anemia it is close to her baseline I would recommend having her hemoglobin rechecked in a week or 2 with your physician. Your renal function has been variable it is slightly decreased today but within your kind of window your physician can continue to monitor this. I would not alter your medications today. Your popliteal aneurysm is still present, there does appear to be thrombosis of the aneurysm but the graft it appears to be patent with flow. You can take the discs today to your vascular surgeon at her follow-up appointment. Return for fevers, worsening symptoms, chest pain, shortness of breath, passing out, persistent vomiting, difficulties with urination, new swelling of extremities, sudden worsening or new pain or changes in your extremity. Prescriptions: No Action testosterone 50 mg/5 gram (1 %) gel 50 mg transdermal DAILY spironolactone 25 mg tablet 25 mg PO DAILY Eliquis 2.5 mg tablet 2.5 mg PO BID probenecid 500 mg tablet 500 mg PO DAILY prasterone (dhea) [DHEA] 25 mg capsule 25 mg PO .weekly ascorbic acid (vitamin C) 1,000 mg tablet 1 g PO BID coenzyme Q10 [CoQ-10] 100 mg capsule 100 mg PO DAILY mecobalamin (vitamin B12) 5,000 mcg lozenge 100 mcg PO BEDTIME Rx Instructions: allow to dissolve in mouth OR may chew lightly before swallowing Icarin 60 mg PO BID resveratrol 100 mg capsule 100 mg PO BID finasteride 5 mg tablet 5 mg PO BEDTIME Qty: 90 3RF letrozole 2.5 mg tablet 2.5 mg PO 3XW torsemide 20 mg tablet 20 mg PO 6XD carvedilol 12.5 mg tablet 12.5 mg PO BID Rx Instructions: must administer with a meal/food oxycodone 5 mg tablet 5 mg PO BID PRN (Reason: pain) Qty: 30 0RF allopurinol 100 mg tablet 100 mg PO DAILY Label Comments: TAKE 1 TABLET BY MOUTH ONCE DAILY cyanocobalamin (vitamin B-12) 1,000 mcg/mL solution 1,000 mcg IM QWEEK Label Comments: INJECT 1 ML IN THE MUSCLE ONCE WEEKLY. ferrous sulfate [FeroSul] 325 mg (65 mg iron) tablet 325 mg PO DAILY thyroid (pork) [BODY MASKER Thyroid] 60 mg tablet 60 mg PO DAILY Label Comments: TAKE 1 TABLET BY MOUTH EVERY MORNING 15 TO 30 MINUTES BEFORE EATING valsartan 40 mg tablet 40 mg PO DAILY Label Comments: TAKE 1 TABLET BY MOUTH DAILY glipizide 2.5 mg tablet extended release 24hr 2.5 mg PO DAILY Label Comments: TAKE 1 TABLET BY MOUTH ONCE A DAY Referrals: Ry Ash MD [Primary Care Provider] - Visit Report Forms: Patient Portal/API
[2022-03-24 10:36] LABS: Troponin I 0.037 ng/mL (0.01-0.034)
[2022-03-24 10:46] LABS: COVID19 -Nasal RAPID Negative (Negative)
--- NOTE | 2022-03-24 11:06 | DI.US.S_ITS ---
PROCEDURE: US ARTERIAL DUPLEX LE RT INDICATIONS: RECENT POPLITEAL ANEURYSM REPAIR; FIRM LUMP AT ANEURYSM TECHNIQUE: Color and pulse Doppler interrogation was performed of the right lower extremity arterial system, with image documentation. COMPARISON: [facility], , US ARTERIAL DUPLEX LE RT, 01/11/2022, 16:14 FINDINGS: Common femoral artery: 56 cm/sec, with biphasic flow. Deep femoral artery: 57 cm/sec, with biphasic flow. Proximal superficial femoral artery: 46 cm/sec, with biphasic flow. Mid superficial femoral artery: 40 cm/sec, with monophasic flow. Distal superficial femoral artery: 62 cm/sec, with monophasic flow. Popliteal artery: 62 cm/sec, with monophasic flow. Posterior tibial artery: Distally 94 cm/sec, with monophasic flow. Anterior tibial artery/dorsalis pedis: Distally 45 cm/sec, with monophasic flow. Hanna-scale imaging description: There is a patent bypass graft seen distally. There is a thrombosed popliteal artery aneurysm seen that measures 4.8 x 5 x 9.2 cm. IMPRESSION: There is a thrombosed popliteal artery aneurysm. There is a patent distal bypass graft excluding the popliteal artery. Dictated by: Xu Newsome M.D. on 03/24/2022 at 11:27 Approved by: Xu Newsome M.D. on 03/24/2022 at 11:30
[2022-03-24 11:35] LABS: NT-proBNP (BNP-Adult 18+) 8690 pg/mL (<450)
[2022-03-24 12:04] LABS: Reflexed Lactate in 2 Hours Y
--- NOTE | 2022-03-24 12:20 | DI.CT.S_ITS ---
PROCEDURE: CT KIDNEY URETER BLADDER (KUB) INDICATIONS: urinary issues/constipation TECHNIQUE: Axial sections were acquired from the lung bases to the pubic symphysis. Coronal and sagittal reformats were performed. For radiation dose reduction, the following was used: automated exposure control, adjustment of mA and/or kV according to patient size. COMPARISON: None. FINDINGS: Image quality: Excellent. Lung bases: Mild fibrotic change can be seen at the lung bases. A small hiatal hernia is incidentally noted. Heart: No significant findings. AICD leads are seen. URINARY: Right Kidney: No stones or hydronephrosis. Right Ureter: No hydroureter. Left Kidney: No stones or hydronephrosis. Left Ureter: No hydroureter. Bladder: Normal wall thickness. No stones. ABDOMEN: Liver: Unremarkable. Gallbladder: Unremarkable. Biliary ducts: Unremarkable. Pancreas: Unremarkable. Spleen: Calcified granulomas can be seen within the spleen. Adrenal Glands: Unremarkable. Stomach and Bowel: Stomach, small bowel loops, and colon are unremarkable. Colonic diverticulosis is seen, without findings of active diverticulitis. Peritoneum: No abnormal intraperitoneal fluid. No free air. Ventral Wall: No hernia. Abdominal Nodes: No enlarged retroperitoneal or mesenteric lymph nodes. Vessels: Aorta and inferior vena cava are normal in size. Atherosclerotic calcification is noted. PELVIS: Pelvic Organs: The prostate is prominent, measuring 5.2 cm transversely. Pelvic Nodes: Unremarkable. Miscellaneous: Bilateral fat containing inguinal hernias are seen. Bones: Mild levoconvex scoliotic curvature is noted. Focal L5-S1 degenerative change is seen. Milder degenerative changes are seen elsewhere. IMPRESSION: Negative for kidney stones or obstructive uropathy. Prominent prostate. Incidental note is made of: AICD leads Fibrotic change at the lung bases Small hiatal hernia Prior granulomatous exposure. Diverticulosis, without active diverticulitis Focal L5-S1 degenerative change Mild levoconvex scoliotic curvature Bilateral fat containing inguinal hernias Dictated by: Xu Newsome M.D. on 03/24/2022 at 11:59 Approved by: Xu Newsome M.D. on 03/24/2022 at 12:03
[2022-03-24 12:56] LABS: Troponin I 0.032 ng/mL (0.01-0.034)
[2022-03-24] MEDS: SODIUM CHLORIDE 0.9% 1,000 ML 125 ML IV (13:03)
== END 2022-03-24 14:44 | disposition home or self-care (01) ==
PROVIDERS: Emergency Provider Emergency Medicine; PCP Internal Medicine
DX: I72.4 Aneurysm of artery of lower extremity (principal); D64.9 Anemia, unspecified; R07.9 Chest pain, unspecified; Z95.0 Presence of cardiac pacemaker; Z20.822 Contact with and (suspected) exposure to COVID-19
CPT/HCPCS: 36415; 51798; 71045; 74176; 80053; 81003; 82550; 83605; 83690; 83735; 83880; 84484; 85025; 85610; 85730; 87040; 87086; 87635; 93005; 93926; 96360; 96361; 99284; 99285; C9803

== ENCOUNTER 2022-05-28 06:46 | Inpatient (IN) | payer MEDICARE, SELFPAY ==
[2021-10-22 15:30] VITALS: BMI 21.7
[2022-05-28] VITALS (14 sets, daily range): BP systolic 115–140; BP diastolic 57–65; PULSE 79–84; RESP 16–19; TEMP 36.5–37.7; O2SAT 92–99; BMI 23.8
--- NOTE | 2022-05-28 06:51 | DI.RAD.S_ITS ---
PROCEDURE: XR CHEST 1V INDICATIONS: hypoxic fall TECHNIQUE: One view of the chest was acquired. COMPARISON: [facility], CR, XR CHEST 1V, 03/24/2022, 9:34. FINDINGS: Surgical changes and devices: Left chest wall pacemaker leads are in the region of right atrium, right ventricle and left ventricle unchanged from prior study. Lungs and pleura: Mild pulmonary vascular congestion is seen. Increased interstitial lung reticular markings are noted bilaterally suggestive of interstitial pulmonary edema versus pneumonitis. Trace bilateral pleural effusion is seen. No gross pneumothorax. Mediastinum: Mediastinal contours appear normal. Heart size is enlarged. Bones and chest wall: No suspicious bony lesions. Overlying soft tissues appear unremarkable. IMPRESSION: Cardiomegaly, mild congestion with suggestion of interstitial pulmonary edema versus pneumonitis. Trace bilateral pleural effusion. No gross pneumothorax. Dictated by: Max Gonzalez M.D. on 05/28/2022 at 8:07 Approved by: Max Gonzalez M.D. on 05/28/2022 at 8:10
--- NOTE | 2022-05-28 06:51 | DI.CT.S_ITS ---
PROCEDURE: CT HEAD/BRAIN WO CON INDICATIONS: fall TECHNIQUE: Noncontrast 4.5 mm thick angled axial sections acquired from the foramen magnum to the vertex, with coronal and sagittal reformats. For radiation dose reduction, the following was used: automated exposure control, adjustment of mA and/or kV according to patient size. COMPARISON: [facility], CT, CT HEAD/BRAIN WO CON, 09/11/2021, 17:12. FINDINGS: Image quality: Excellent. CSF spaces: Basal cisterns are patent. No extra-axial fluid collections. The ventricles are symmetric in size and shape. Brain: No intracranial bleeds or masses. There is cerebral volume loss for age, with resultant ventricular and sulcal prominence. There are periventricular and deep white matter chronic small vessel ischemic changes. There is intracranial internal carotid artery atherosclerosis. Skull and face: Calvarium and visualized facial bones appear intact, without suspicious lesions. 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 It is noted that it does bulge into the sinus bridges. She as previously noted, this could represent polyposis. IMPRESSION: 1. No acute intracranial process. 2. Moderate atrophy and chronic microvascular ischemic changes. Dictated by: Sharonda Romero M.D. on 05/28/2022 at 7:57 Approved by: Sharonda Romero M.D. on 05/28/2022 at 7:58
--- NOTE | 2022-05-28 06:51 | DI.RAD.S_ITS ---
PROCEDURE: XR HIP W PEL IF DONE RT 2V INDICATIONS: fall TECHNIQUE: AP pelvis with lateral view(s) of the right hip(s). COMPARISON: None. FINDINGS: Bones: Acute slightly comminuted fracture involving right femoral neck is seen with slight superior migration of femoral neck in relation to femoral head. Moderate right hip joint osteoarthritic changes are seen. No evidence of avascular necrosis of femoral head. Rest of the pelvic ring is intact. Soft tissues: The visualized bowel gas pattern is normal. No suspicious soft tissue calcifications. IMPRESSION: Acute comminuted and slightly displaced right femoral neck fracture as above. Dictated by: Max Gonzalez M.D. on 05/28/2022 at 8:10 Approved by: Max Gonzalez M.D. on 05/28/2022 at 8:10
--- NOTE | 2022-05-28 06:51 | DI.CT.S_ITS ---
PROCEDURE: CT CERVICAL SPINE WO CON INDICATIONS: fall TECHNIQUE: Noncontrast 3 mm thick sections acquired from the skull base to the T4 level. Sagittal and coronal reformats were then constructed. For radiation dose reduction, the following was used: automated exposure control, adjustment of mA and/or kV according to patient size. COMPARISON: [facility], CT, CT CERVICAL SPINE WO CON, 09/11/2021, 17:12. FINDINGS: Image quality: Excellent. Bones: No fractures or dislocations. Visualized superior ribs are intact. Multilevel degenerative present include significant snare is trace anterolisthesis of C4 trace retrolisthesis of C5 on C6. As noted on prior exams, there is chronic enlargement of the right T2-3 neural foramina which could represent presence of a nerve sheath tumor or perineural cyst. Soft tissues: Prevertebral soft tissues are normal in thickness. No paravertebral hematomas. No apical pneumothoraces. Mild bilateral effusions IMPRESSION: Multilevel degenerative changes without visualized fracture is Dictated by: Sharonda Romero M.D. on 05/28/2022 at 7:54 Approved by: Sharonda Romero M.D. on 05/28/2022 at 7:57
[2022-05-28 07:00] LABS: Add Manual Diff / Slide Review NO; Basophils Absolute Auto 0 /uL (0-100); Basophils Percent Auto 0.6 % (0-2); Eosinophils Absolute Auto 200 /uL (0-450); Eosinophils Percent Auto 2.9 % (2-4); Hematocrit 30.5 % (41-53); Hemoglobin 10.3 g/dL (13.5-17.5); Lymphocytes Absolute Auto 700 /uL (1100-4500); Lymphocytes Percent Auto 11.2 % (25-40); Mean Corpuscular HGB Conc 33.8 % (30-36); Mean Corpuscular Hemoglobin 34.5 PG (26-34); Monocytes Absolute Auto 900 /uL (0-900); Monocytes Percent Auto 14.3 % (3-14); Neutrophils Absolute Auto 4600 /uL (1500-7000); Platelet Count 200 X10^3/uL (150-400); Red Blood Cell Count 2.99 X10^6/uL (4.5-5.9); Red Cell Distribution Width 15.7 % (11.6-14.8); White Blood Cell Count 6.5 X10^3/uL (4.5-11.0)
[2022-05-28] MEDS: HYDROMORPHONE 0.5 MG INJ IV (07:02)
[2022-05-28 07:12] LABS: INR 1.5 (0.9-1.3); Prothrombin Time 17.5 SECONDS (10.1-12.7)
--- NOTE | 2022-05-28 07:13 | ED.FALL ---
HPI - Fall General Chief Complaint: Fall Stated Complaint: GLF hip pain Time Seen by Provider: 05/28/22 06:51 Source: patient and EMS Mode of arrival: EMS History of Present Illness HPI Narrative: Mr. Juarez is an 86-year-old gentleman who slipped and fell on his way to the bathroom this morning. Was feeling completely well last night. No recent illness cold or flu symptoms. Had to urinate very badly upon awakening this morning and when is in a tirado to get to the bathroom lost his balance and reached for a grab bar but missed it and fell to the ground landing on his right hip. Denies injury elsewhere. Paramedics brought him to the hospital. Of note, Mr. Brown suffers from congestive heart failure, peripheral neuropathy, peripheral vascular disease, atrial fibrillation, stage IIIB chronic kidney disease, type 2 diabetes, coronary artery disease and takes Eliquis. Related Data Home Medications Medication Instructions Recorded Confirmed Icarin 60 mg PO BID 10/13/20 03/28/22 apixaban 2.5 mg tablet (Eliquis) 2.5 mg PO BID 10/13/20 03/28/22 ascorbic acid (vitamin C) 1,000 mg 1 g PO BID 10/13/20 03/28/22 tablet coenzyme Q10 100 mg capsule 100 mg PO DAILY 10/13/20 03/28/22 (CoQ-10) mecobalamin (vitamin B12) 5,000 100 mcg PO BEDTIME 10/13/20 03/28/22 mcg lozenge prasterone (dhea) 25 mg capsule 25 mg PO .weekly 10/13/20 03/28/22 (DHEA) probenecid 500 mg tablet 500 mg PO DAILY 10/13/20 03/28/22 resveratrol 100 mg capsule 100 mg PO BID 10/13/20 03/28/22 spironolactone 25 mg tablet 25 mg PO DAILY 10/13/20 03/28/22 testosterone 50 mg/5 gram (1 %) 50 mg transdermal DAILY 10/13/20 03/28/22 transdermal gel allopurinol 100 mg tablet 100 mg PO DAILY 02/04/22 03/28/22 carvedilol 12.5 mg tablet 12.5 mg PO BID 02/04/22 03/28/22 cyanocobalamin (vitamin B-12) 1,000 mcg IM QWEEK 02/04/22 03/28/22 1,000 mcg/mL injection solution ferrous sulfate 325 mg (65 mg 325 mg PO DAILY 02/04/22 03/28/22 iron) tablet (FeroSul) glipizide 2.5 mg tablet, extended 2.5 mg PO DAILY 02/04/22 03/28/22 release 24 hr letrozole 2.5 mg tablet 2.5 mg PO 3XW 02/04/22 03/28/22 thyroid (pork) 60 mg tablet (PAINT [employer] INSPECTOR 60 mg PO DAILY 02/04/22 03/28/22 Thyroid) torsemide 20 mg tablet 20 mg PO 6XD 02/04/22 03/28/22 valsartan 40 mg tablet 40 mg PO DAILY 02/04/22 03/28/22 Previous Rx's Medication Instructions Recorded finasteride 5 mg tablet 5 mg PO BEDTIME #90 tabs 11/07/21 oxycodone 5 mg tablet 5 mg PO BID PRN pain #30 tabs 02/28/22 Allergies Allergy/AdvReac Type Severity Reaction Status Date / Time dextran 40 [DEXTRAN 40] Allergy Unknown Verified 03/28/22 12:56 morphine [MORPHINE] Allergy Unknown Verified 03/28/22 12:56 Review of Systems Review of Systems Narrative: Complete review of systems is negative other than as noted above. Patient History Medical History Allergies Aneurysm of right popliteal artery Atrial fibrillation (~2014) BPH (benign prostatic hyperplasia) BPH w urinary obs/LUTS CAD (coronary artery disease), [place] coronary artery Chicken pox Chronic systolic CHF (congestive heart failure), NYHA class 1 Congestive heart failure Coronary heart disease Elevated PSA (~2004) Essential (primary) hypertension Foot pain Ganglion cyst Gout Gout Hearing loss Heart attack Hypertension Low testosterone (~2008) Measles Mixed hyperlipidemia Mumps Osteoporosis Peripheral neuropathy Shoulder pain 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 Wears glasses Surgical History Anesthesia History of back surgery (~2009) History of circumcision 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) History of prostate biopsy History of surgery (~1998) Family History Father Prostate cancer Coronary artery disease Mother Cancer Stroke Social History marital status: number of children: 3 household members: spouse occupational status: previously employed Smoking Status: Never smoker alcohol intake: current substance use type: does not use caffeine: Yes Smoking Status: Never smoker alcohol intake frequency: 0-2 drinks per day Substance Use Type: does not use Exam Narrative Exam Narrative: GENERAL: Alert, cooperative and in no distress. HEAD: Atraumatic. Normocephalic. EYES: Sclera are clear without icterus. Extraocular movements are full. ENT: No rhinorrhea. Oropharynx is moist. Mouth exam is benign. NECK: Supple. Full range of motion. CARDIOVASCULAR: Normal rate and rhythm without murmur gallop or rub. RESPIRATORY: Clear to auscultation. Breath sounds equal bilaterally. Rales at the bases of the lungs bilaterally GASTROINTESTINAL: Abdomen soft, non-tender, nondistended. EXTREMITIES: Upper extremities and left lower extremity are normal. There are no palpable pedal pulses on either side. Right lower extremity is shortened and externally rotated. He has good cap refill on the foot of his right leg. BACK: Normal inspection, no CVA tenderness. NEURO: Nonfocal examination, normal speech. SKIN: No rash or erythema of visible areas PSYCH: Normally oriented. Normal range of affect. Appropriate behavior Initial Vital Signs Initial Vital Signs: Vital Signs Temperature 98.2 F 05/28/22 06:49 Pulse Rate 80 05/28/22 06:49 Respiratory Rate 16 05/28/22 06:49 Blood Pressure 136/64 05/28/22 06:49 Pulse Oximetry 96 05/28/22 06:49 Oxygen Delivery Method 05/28/22 06:49 Course Orders Ordered: ED Orders 05/28/22 06:50 Complete Blood Count AUTO DIFF Stat Comprehensive Metabolic Panel Stat Lipase Stat NT-proBNP (BNP-Adult 18+) Stat Partial Thromboplastin Time Stat Prothrombin Time INR Stat Troponin & CK Cardiac Panel Stat 05/28/22 06:51 CT cervical spine wo con Stat CT head/brain wo con Stat XR chest 1V Stat XR hip w pel if done RT 2V Stat 05/28/22 06:52 EKG-12 Lead Stat Discontinued Medications Hydromorphone HCl (Hydromorphone 0.5 Mg Inj) 0.5 mg IV NOW ONE Stop: 05/28/22 07:00 Last Admin: 05/28/22 07:02 Dose: 0.5 mg Documented By: HOLLEY Consultations Consultation #1: Spoke to Chinmay Lobo at about 08:07 who agreed to see the patient in consultation later this afternoon. Consultation #2: Spoke to Dr. Whitlock at 8:10 a.m. who agrees to admit the patient. Vital Signs Vital signs: Vital Signs - 8 hr 05/28/22 06:49 Temperature 98.2 F Pulse Rate 80 Respiratory Rate 16 Blood Pressure 136/64 Pulse Oximetry 96 Oxygen Delivery Method Room Air - Fall Lab Data Result diagrams: 05/28/22 06:50 05/28/22 06:50 Labs: Lab Results 05/28/22 05/28/22 05/28/22 Range/Units 06:50 06:50 06:50 WBC 6.5 (4.5-11.0) X10^3/uL RBC 2.99 L (4.5-5.9) X10^6/uL Hgb 10.3 L (13.5-17.5) g/dL Hct 30.5 L (41-53) % MCV 102.0 H (80-100) fL MCH 34.5 H (26-34) PG MCHC 33.8 (30-36) % RDW 15.7 H (11.6-14.8) % Plt Count 200 (150-400) X10^3/uL Neut % (Auto) 71.0 (50-75) % Lymph % (Auto) 11.2 L (25-40) % Churchill % (Auto) 14.3 H (3-14) % Eos % (Auto) 2.9 (2-4) % Baso % (Auto) 0.6 (0-2) % Neut # (Auto) 4600 (4351-0503) /uL Lymph # (Auto) 700 L (2001-0492) /uL Churchill # (Auto) 900 (0-900) /uL Eos # (Auto) 200 (0-450) /uL Baso # (Auto) 0 (0-100) /uL PT 17.5 H (10.1-12.7) SECONDS INR 1.5 H (0.9-1.3) APTT 27 (26-36) SECONDS Sodium 135 L (137-145) mmol/L Potassium 3.7 (3.4-5.1) mmol/L Chloride 100 (98-107) mmol/L Carbon Dioxide 22 (22-32) mmol/L BUN 46 H (9-20) mg/dL Creatinine 1.98 H (0.66-1.25) mg/dL Estimated GFR 32 L (>60) mL/min BUN/Creatinine Ratio 23.2 H (6-22) Glucose 108 (80-110) mg/dL Calcium 10.5 H (8.4-10.2) mg/dL Total Bilirubin 0.6 (0.2-1.3) mg/dL AST 24 (17-59) IU/L ALT 23 (<50) IU/L Alkaline Phosphatase 189 H (38-126) U/L Total Creatine Kinase 68 (55-170) U/L CK-MB (CK-2) TNP CK-MB (CK-2) Rel Index TNP Troponin I 0.037 H (0.01-0.034) ng/mL NT-Pro-B Natriuret Pep 6210 H (<450) pg/mL Total Protein 7.3 (6.3-8.2) g/dL Albumin 4.0 (3.5-5.0) g/dL Globulin 3.3 (1.7-4.1) g/dL Albumin/Globulin Ratio 1.2 (1.0-2.8) Lipase 165 (23-300) U/L Imaging Data CT scan - head: Radiologist's Impression: IMPRESSION:? ? 1. No acute intracranial process. ? 2. Moderate atrophy and chronic microvascular ischemic changes. ? ? Dictated by: Sharonda Romero M.D. on 05/28/2022 at 7:57 ? ? Approved by: Sharonda Romero M.D. on 05/28/2022 at 7:58 ? CT - cervical spine: Radiologist's Impression: IMPRESSION:? Multilevel degenerative changes without visualized fracture is ? Dictated by: Sharonda Romero M.D. on 05/28/2022 at 7:54 ? ? Approved by: Sharonda Romero M.D. on 05/28/2022 at 7:57 ? Chest x-ray: My Impression: Significant volume overload apparent as evidenced by fluid in the Greater fissure, increased diffuse density in bilateral bases and enlarged heart size. There is also cephalization of flow. Extremity x-ray #1: My Impression: Right femoral neck fracture ECG Data Interpretation: ECG obtained at 7:09 a.m. reveals a ventricular rate of 80 beats per minute. QTC is 505 Discharge Plan Departure Patient Disposition: Admitted As Inpatient Clinical Impression: Closed displaced fracture of right femoral neck, Type 2 diabetes mellitus with cardiac complication, Chronic systolic CHF (congestive heart failure), NYHA class 1, Stage 3b chronic kidney disease, Atrial fibrillation Prescriptions: No Action testosterone 50 mg/5 gram (1 %) gel 50 mg transdermal DAILY spironolactone 25 mg tablet 25 mg PO DAILY Eliquis 2.5 mg tablet 2.5 mg PO BID probenecid 500 mg tablet 500 mg PO DAILY prasterone (dhea) [DHEA] 25 mg capsule 25 mg PO .weekly ascorbic acid (vitamin C) 1,000 mg tablet 1 g PO BID coenzyme Q10 [CoQ-10] 100 mg capsule 100 mg PO DAILY mecobalamin (vitamin B12) 5,000 mcg lozenge 100 mcg PO BEDTIME Rx Instructions: allow to dissolve in mouth OR may chew lightly before swallowing Icarin 60 mg PO BID resveratrol 100 mg capsule 100 mg PO BID finasteride 5 mg tablet 5 mg PO BEDTIME Qty: 90 3RF letrozole 2.5 mg tablet 2.5 mg PO 3XW torsemide 20 mg tablet 20 mg PO 6XD carvedilol 12.5 mg tablet 12.5 mg PO BID Rx Instructions: must administer with a meal/food oxycodone 5 mg tablet 5 mg PO BID PRN (Reason: pain) Qty: 30 0RF allopurinol 100 mg tablet 100 mg PO DAILY Label Comments: TAKE 1 TABLET BY MOUTH ONCE DAILY cyanocobalamin (vitamin B-12) 1,000 mcg/mL solution 1,000 mcg IM QWEEK Label Comments: INJECT 1 ML IN THE MUSCLE ONCE WEEKLY. ferrous sulfate [FeroSul] 325 mg (65 mg iron) tablet 325 mg PO DAILY thyroid (pork) [PAINT [employer]OR Thyroid] 60 mg tablet 60 mg PO DAILY Label Comments: TAKE 1 TABLET BY MOUTH EVERY MORNING 15 TO 30 MINUTES BEFORE EATING valsartan 40 mg tablet 40 mg PO DAILY Label Comments: TAKE 1 TABLET BY MOUTH DAILY glipizide 2.5 mg tablet extended release 24hr 2.5 mg PO DAILY Label Comments: TAKE 1 TABLET BY MOUTH ONCE A DAY Referrals: Ry Ash MD [Primary Care Provider] -
[2022-05-28 07:15] LABS: PTT Partial Thromboplastin Tim 27 SECONDS (26-36)
[2022-05-28 07:18] LABS: Alanine Aminotransferase 23 IU/L (<50); Albumin Globulin Ratio 1.2 (1.0-2.8); Alkaline Phosphatase 189 U/L (38-126); Aspartate Aminotransferase 24 IU/L (17-59); BUN Creatinine Ratio 23.2 (6-22); Bilirubin Total 0.6 mg/dL (0.2-1.3); Blood Urea Nitrogen 46 mg/dL (9-20); Calcium 10.5 mg/dL (8.4-10.2); Carbon Dioxide 22 mmol/L (22-32); Chloride 100 mmol/L (98-107); Creatine Kinase 68 U/L (55-170); Estimated Glomerular Filt Rate 32 mL/min (>60); Globulin 3.3 g/dL (1.7-4.1); Glucose 108 mg/dL (80-110); HEMOLYSIS < 15 (0-50); Lipase 165 U/L (23-300); Potassium 3.7 mmol/L (3.4-5.1); Sodium 135 mmol/L (137-145); Total Protein 7.3 g/dL (6.3-8.2)
[2022-05-28 07:29] LABS: NT-proBNP (BNP-Adult 18+) 6210 pg/mL (<450); Troponin I 0.037 ng/mL (0.01-0.034)
[2022-05-28 08:57] LABS: COVID19 -Nasal RAPID Negative (Negative)
--- NOTE | 2022-05-28 10:48 | ED.FALL ---
HPI - Fall General Chief Complaint: Fall Stated Complaint: GLF hip pain Time Seen by Provider: 05/28/22 06:51 Source: patient and EMS Mode of arrival: EMS Related Data Home Medications Medication Instructions Recorded Confirmed ascorbic acid (vitamin C) 1,000 mg 1 g PO BID 10/13/20 10/07/22 tablet coenzyme Q10 100 mg capsule 100 mg PO DAILY 10/13/20 10/07/22 (CoQ-10) mecobalamin (vitamin B12) 5,000 100 mcg PO BEDTIME 10/13/20 10/07/22 mcg lozenge prasterone (dhea) 25 mg capsule 25 mg PO .weekly 10/13/20 10/07/22 (DHEA) probenecid 500 mg tablet 500 mg PO DAILY 10/13/20 10/07/22 resveratrol 100 mg capsule 100 mg PO BID 10/13/20 10/07/22 testosterone 50 mg/5 gram (1 %) 50 mg transdermal DAILY 10/13/20 10/07/22 transdermal gel allopurinol 100 mg tablet 100 mg PO DAILY 02/04/22 10/07/22 cyanocobalamin (vitamin B-12) 1,000 mcg IM QWEEK 02/04/22 10/07/22 1,000 mcg/mL injection solution ferrous sulfate 325 mg (65 mg 325 mg PO DAILY 02/04/22 10/07/22 iron) tablet (FeroSul) glipizide 2.5 mg tablet, extended 2.5 mg PO DAILY 02/04/22 10/07/22 release 24 hr letrozole 2.5 mg tablet 2.5 mg PO 3XW 02/04/22 10/07/22 thyroid (pork) 60 mg tablet (QUALITY ANALYST/TECHNICAL WRITER 60 mg PO DAILY 02/04/22 10/07/22 Thyroid) valsartan 40 mg tablet 40 mg PO DAILY 02/04/22 10/07/22 carvedilol 6.25 mg tablet 6.25 mg PO BID 05/28/22 10/07/22 finasteride 5 mg tablet 2.5 mg PO BEDTIME 05/28/22 10/07/22 rosuvastatin 10 mg tablet 10 mg PO DAILY 06/19/22 10/07/22 empagliflozin 10 mg tablet 10 mg PO DAILY 10/07/22 10/07/22 (Jardiance) Previous Rx's Medication Instructions Recorded docusate sodium 100 mg capsule 100 mg PO BID #10 caps 06/03/22 oxycodone 5 mg tablet 5 mg PO BID PRN pain #10 tabs 06/03/22 polyethylene glycol 3350 17 gram 17 g PO DAILY PRN Constipation #10 06/03/22 oral powder packet ea sennosides 8.6 mg tablet (senna) 17.2 mg PO BEDTIME #10 tabs 06/03/22 torsemide 20 mg tablet 20 mg PO 6XD #540 tabs 06/19/22 apixaban 2.5 mg tablet (Eliquis) 2.5 mg PO BID #168 tabs 07/26/22 Condom Catheters #1 ea 10/01/22 Allergies Allergy/AdvReac Type Severity Reaction Status Date / Time dextran 40 [DEXTRAN 40] Allergy Unknown Verified 10/07/22 15:22 morphine [MORPHINE] Allergy Unknown Verified 10/07/22 15:22 Patient History Medical History (Updated 10/07/22 @ 15:57 by Ry Ash MD) Aneurysm of right popliteal artery BPH (benign prostatic hyperplasia) BPH w urinary obs/LUTS CAD (coronary artery disease), [place] coronary artery Chicken pox Chronic anticoagulation Chronic atrial fibrillation Chronic systolic CHF (congestive heart failure), NYHA class 1 Congestive heart failure Coronary heart disease Do not resuscitate Elevated PSA (~2004) Essential (primary) hypertension Ganglion cyst Gout Gout Hearing loss Heart attack Hypertension Low testosterone (~2008) Measles Mixed hyperlipidemia Mumps Recurrent falls 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 Urinary incontinence Wears glasses Surgical History Anesthesia History of back surgery (~2009) History of circumcision 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) History of prostate biopsy History of surgery (~1998) Family History Father Prostate cancer Coronary artery disease Mother Cancer Stroke Social History marital status: number of children: 3 household members: spouse occupational status: previously employed Smoking Status: Never smoker alcohol intake: current substance use type: does not use caffeine: Yes Smoking Status: Never smoker alcohol intake frequency: 0-2 drinks per day Substance Use Type: does not use Exam Initial Vital Signs Initial Vital Signs: Vital Signs Temperature 98.2 F 05/28/22 06:49 Pulse Rate 80 05/28/22 06:49 Respiratory Rate 16 05/28/22 06:49 Blood Pressure 136/64 05/28/22 06:49 Pulse Oximetry 96 05/28/22 06:49 Oxygen Delivery Method Room Air 05/28/22 06:49 Course Orders Ordered: Discontinued Medications Acetaminophen (Acetaminophen 325 Mg Tablet) 650 mg PO Q6HR [facility] Last Admin: 06/03/22 06:31 Dose: 650 mg Documented By: Admin: 06/03/22 00:00 Dose: Not Given Documented By: Admin: 06/02/22 17:44 Dose: 650 mg Documented By: Admin: 06/02/22 11:23 Dose: Not Given Documented By: Admin: 06/02/22 05:08 Dose: 650 mg Documented By: Admin: 06/01/22 23:56 Dose: Not Given Documented By: Admin: 06/01/22 18:53 Dose: Not Given Documented By: Admin: 06/01/22 12:00 Dose: Not Given Documented By: Admin: 06/01/22 06:02 Dose: 650 mg Documented By: Admin: 06/01/22 00:30 Dose: 650 mg Documented By: Admin: 05/31/22 18:36 Dose: Not Given Documented By: Admin: 05/31/22 11:34 Dose: 650 mg Documented By: Admin: 05/31/22 06:18 Dose: 650 mg Documented By: Admin: 05/30/22 23:18 Dose: 650 mg Documented By: Admin: 05/30/22 17:44 Dose: 650 mg Documented By: Admin: 05/30/22 12:15 Dose: 650 mg Documented By: Admin: 05/30/22 05:48 Dose: 650 mg Documented By: Admin: 05/30/22 00:57 Dose: 650 mg Documented By: Admin: 05/29/22 18:59 Dose: Not Given Documented By: BHARTI Allopurinol (Allopurinol 100 Mg Tablet) 100 mg PO DAILY [facility] Last Admin: 06/03/22 08:18 Dose: 100 mg Documented By: Admin: 06/02/22 08:51 Dose: 100 mg Documented By: Admin: 06/01/22 16:05 Dose: 100 mg Documented By: JOHANNA Apixaban (Apixaban 5 Mg Tablet) 2.5 mg PO BID [facility] Apixaban (Apixaban 5 Mg Tablet) 2.5 mg PO BID [facility] Last Admin: 06/03/22 08:19 Dose: 2.5 mg Documented By: Admin: 06/02/22 20:42 Dose: 2.5 mg Documented By: Admin: 06/02/22 08:53 Dose: 2.5 mg Documented By: Admin: 06/01/22 21:10 Dose: 2.5 mg Documented By: Admin: 06/01/22 08:19 Dose: 2.5 mg Documented By: Admin: 05/31/22 20:14 Dose: 2.5 mg Documented By: Admin: 05/31/22 09:26 Dose: 2.5 mg Documented By: REJI Bupivacaine HCl/Epinephrine Bitart (Bupivacaine 0.5% W/ Epi (Pf) 30 Ml Vial) 30 ml INJ NOW ONE Stop: 05/29/22 16:47 Last Admin: 05/29/22 16:47 Dose: 30 ml Documented By: NICOLE Carvedilol (Carvedilol 12.5 Mg Tablet) 12.5 mg PO BID [facility] Last Admin: 05/28/22 10:49 Dose: 12.5 mg Documented By: RYNE Carvedilol (Carvedilol 3.125 Mg Tablet) 6.25 mg PO BID [facility] Last Admin: 06/03/22 08:18 Dose: 6.25 mg Documented By: Admin: 06/02/22 20:43 Dose: 6.25 mg Documented By: Admin: 06/02/22 08:56 Dose: Not Given Documented By: Admin: 06/01/22 21:10 Dose: 6.25 mg Documented By: Admin: 06/01/22 08:20 Dose: 6.25 mg Documented By: Admin: 05/31/22 20:14 Dose: 6.25 mg Documented By: Admin: 05/31/22 09:27 Dose: 6.25 mg Documented By: Admin: 05/30/22 20:04 Dose: 6.25 mg Documented By: Admin: 05/30/22 09:06 Dose: Not Given Documented By: Admin: 05/29/22 21:19 Dose: 6.25 mg Documented By: Admin: 05/29/22 09:21 Dose: 6.25 mg Documented By: Admin: 05/28/22 21:09 Dose: 6.25 mg Documented By: SERA Dextrose (Dextrose 50 % In Water 25 Gm/50 Ml Syringe) 25 gm IV PRN PRN PRN Reason: Hypoglycemia Diazepam (Diazepam 2 Mg Tablet) 2 mg PO NOW ONE Stop: 05/30/22 19:52 Last Admin: 05/30/22 20:05 Dose: 2 mg Documented By: DULCE Docusate Sodium (Docusate 100 Mg Capsule) 100 mg PO BID [facility] Last Admin: 06/03/22 08:18 Dose: 100 mg Documented By: Admin: 06/02/22 20:42 Dose: 100 mg Documented By: Admin: 06/02/22 08:52 Dose: 100 mg Documented By: Admin: 06/01/22 21:10 Dose: 100 mg Documented By: Admin: 06/01/22 08:20 Dose: 100 mg Documented By: Admin: 05/31/22 20:14 Dose: 100 mg Documented By: Admin: 05/31/22 09:26 Dose: 100 mg Documented By: Admin: 05/30/22 20:04 Dose: 100 mg Documented By: Admin: 05/30/22 09:06 Dose: 100 mg Documented By: Admin: 05/29/22 21:20 Dose: 100 mg Documented By: Epinephrine HCl (Epinephrine 1 Mg/Ml) 1 mg TOP NOW ONE Stop: 05/29/22 16:49 Last Admin: 05/29/22 16:49 Dose: 1 mg Documented By: NICOLE Ferrous Sulfate (Ferrous Sulfate 325 Mg Tablet) 325 mg PO DAILY [facility] Last Admin: 06/03/22 08:18 Dose: 325 mg Documented By: Admin: 06/02/22 08:52 Dose: 325 mg Documented By: Admin: 06/01/22 08:19 Dose: 325 mg Documented By: Admin: 05/31/22 09:28 Dose: 325 mg Documented By: Admin: 05/30/22 09:06 Dose: 325 mg Documented By: Admin: 05/29/22 09:08 Dose: Not Given Documented By: BHARTI Finasteride (Finasteride 5 Mg Tablet) 5 mg PO BEDTIME NEAL Finasteride (Finasteride 5 Mg Tablet) 2.5 mg PO BEDTIME [facility] Last Admin: 06/02/22 20:40 Dose: 2.5 mg Documented By: Admin: 06/01/22 21:10 Dose: 2.5 mg Documented By: Admin: 05/31/22 20:13 Dose: 2.5 mg Documented By: Admin: 05/30/22 20:05 Dose: 2.5 mg Documented By: Admin: 05/29/22 21:20 Dose: 2.5 mg Documented By: Admin: 05/28/22 21:10 Dose: 2.5 mg Documented By: SERA Furosemide (Furosemide 40 Mg/4 Ml Vial) 40 mg IV NOW ONE Stop: 05/28/22 11:15 Last Admin: 05/28/22 11:56 Dose: 40 mg Documented By: RYNE Furosemide (Furosemide 40 Mg/4 Ml Vial) 40 mg IV DAILY [facility] Last Admin: 05/30/22 09:06 Dose: 40 mg Documented By: Admin: 05/29/22 09:21 Dose: 40 mg Documented By: BHARTI Furosemide (Furosemide 40 Mg/4 Ml Vial) 40 mg IV DAILY [facility] Hydromorphone HCl (Hydromorphone 0.5 Mg Inj) 0.5 mg IV NOW ONE Stop: 05/28/22 07:00 Last Admin: 05/28/22 07:02 Dose: 0.5 mg Documented By: HOLLEY Hydromorphone HCl (Hydromorphone 1 Mg Inj) 1 mg IV Q4H PRN PRN Reason: Pain, Severe (7-10) Last Admin: 05/29/22 15:05 Dose: 0.5 mg Documented By: Admin: 05/29/22 09:21 Dose: 1 mg Documented By: Admin: 05/29/22 03:39 Dose: 1 mg Documented By: Admin: 05/28/22 20:08 Dose: 1 mg Documented By: SERA Hydromorphone HCl (Hydromorphone 2 Mg Inj) 0 mg IV Q5MIN PRN PRN Reason: Pain, Mild (1-3) Hydromorphone HCl (Hydromorphone 0.5 Mg Inj) 0.2 mg IV Q1H PRN PRN Reason: Pain, Moderate (4-6) Last Admin: 06/01/22 01:45 Dose: 0.2 mg Documented By: Admin: 05/30/22 20:06 Dose: 0.2 mg Documented By: Admin: 05/30/22 18:58 Dose: 0.2 mg Documented By: REJI Hydromorphone HCl (Hydromorphone 2 Mg Tablet) 2 mg PO Q3H PRN PRN Reason: Pain, Severe (7-10) Last Admin: 06/02/22 21:44 Dose: 2 mg Documented By: Admin: 06/02/22 00:47 Dose: 2 mg Documented By: Admin: 06/01/22 04:52 Dose: 2 mg Documented By: Cefazolin Sodium/Dextrose (Ancef) 100 mls @ 200 mls/hr IV NOW ONE Stop: 05/29/22 16:16 Last Infusion: 05/29/22 16:34 Dose: 0 mls/hr Documented By: Admin: 05/29/22 16:29 Dose: 200 mls/hr Documented By: GERONIMO Lactated Ringer's (Lactated Ringers) 1,000 mls @ 42 mls/hr IV NOW ONE Stop: 05/30/22 17:33 Last Admin: 05/29/22 17:47 Dose: 42 mls/hr Documented By: CHEPE Cefazolin Sodium/Dextrose (Ancef) 100 mls @ 200 mls/hr IV Q8H NEAL Stop: 05/30/22 08:29 Last Admin: 05/30/22 08:53 Dose: 200 mls/hr Documented By: Infusion: 05/30/22 01:26 Dose: 200 mls/hr Documented By: Admin: 05/30/22 00:56 Dose: 200 mls/hr Documented By: Sodium Chloride (Normal Saline 0.9%) 1,000 mls @ 100 mls/hr IV CONT NEAL Stop: 05/30/22 16:29 Last Admin: 05/30/22 07:38 Dose: Not Given Documented By: (2) Sodium Chloride (Normal Saline 0.9%) 1,000 mls @ 100 mls/hr IV CONT NEAL Last Admin: 05/30/22 07:38 Dose: Not Given Documented By: MS(2) Influenza Virus Vaccine (Influenza Hd Vaccine 0.7 Ml Syringe) 0.7 ml IM .ONCE ONE Stop: 05/29/22 09:01 Last Admin: 05/29/22 09:08 Dose: Not Given Documented By: BHARTI Insulin Human Lispro (Insulin Lispro 100 Unit/Ml 3ml Vial) 0 unit SUBCUT [facility]; Protocol Last Admin: 06/03/22 08:16 Dose: Not Given Documented By: Admin: 06/02/22 20:37 Dose: Not Given Documented By: Admin: 06/02/22 16:42 Dose: 1 unit Documented By: LYLY Co-signed By: JOHANNA Admin: 06/02/22 11:23 Dose: Not Given Documented By: Admin: 06/02/22 07:38 Dose: Not Given Documented By: Admin: 06/01/22 21:19 Dose: Not Given Documented By: Admin: 06/01/22 17:06 Dose: 1 unit Documented By: MAYURI Co-signed By: JOHANNA Admin: 06/01/22 11:41 Dose: 1 unit Documented By: MAYURI Co-signed By: JOHANNA Admin: 06/01/22 08:20 Dose: Not Given Documented By: Admin: 05/31/22 20:06 Dose: Not Given Documented By: Admin: 05/31/22 16:44 Dose: Not Given Documented By: Admin: 05/31/22 11:40 Dose: 1 unit Documented By: REJI Co-signed By: MS(2) Admin: 05/31/22 07:21 Dose: Not Given Documented By: MS(2) Admin: 05/30/22 20:19 Dose: Not Given Documented By: Admin: 05/30/22 17:47 Dose: 1 unit Documented By: REJI Co-signed By: LYLY Admin: 05/30/22 12:05 Dose: Not Given Documented By: Admin: 05/30/22 08:43 Dose: Not Given Documented By: Admin: 05/29/22 21:33 Dose: Not Given Documented By: Admin: 05/29/22 18:45 Dose: Not Given Documented By: Admin: 05/29/22 12:42 Dose: Not Given Documented By: Admin: 05/29/22 07:50 Dose: Not Given Documented By: Admin: 05/28/22 21:05 Dose: Not Given Documented By: Admin: 05/28/22 17:28 Dose: Not Given Documented By: RYNE Melatonin (Melatonin 3 Mg Tablet) 6 mg PO BEDTIME PRN PRN Reason: Insomnia Last Admin: 06/02/22 20:44 Dose: 6 mg Documented By: Admin: 06/02/22 00:47 Dose: 6 mg Documented By: DULCE Naloxone HCl (Naloxone 0.4 Mg/Ml Vial) 0.2 mg IV Q2MIN PRN PRN Reason: Opiate Reversal Non-Formulary Medication (Testosterone) 50 mg TOP DAILY [facility] Last Admin: 06/03/22 08:19 Dose: Not Given Documented By: Admin: 06/02/22 08:57 Dose: Not Given Documented By: Admin: 06/01/22 08:23 Dose: Not Given Documented By: Admin: 05/31/22 09:29 Dose: Not Given Documented By: Admin: 05/30/22 09:08 Dose: Not Given Documented By: REJI Non-Formulary Medication (Resveratrol) 100 mg PO BID [facility] Non-Formulary Medication (Prasterone (Dhea) [Dhea]) 25 mg PO .weekly [facility] Ondansetron HCl (Ondansetron 4 Mg/2 Ml Inj) 4 mg IV Q8HR PRN PRN Reason: Nausea And Vomiting Last Admin: 05/28/22 20:09 Dose: 4 mg Documented By: SERA Ondansetron HCl (Ondansetron 4 Mg/2 Ml Inj) 4 mg IV NOW PRN PRN Reason: Nausea And Vomiting Ondansetron HCl (Ondansetron 4 Mg/2 Ml Inj) 4 mg IV Q4HR PRN PRN Reason: Nausea And Vomiting Ondansetron HCl (Ondansetron 4 Mg Odt) 4 mg PO Q4HR PRN PRN Reason: Nausea Oxycodone HCl (Oxycodone Ir 5 Mg Tablet) 5 mg PO Q3H PRN PRN Reason: Pain, Moderate (4-6) Last Admin: 05/31/22 11:32 Dose: 5 mg Documented By: Admin: 05/30/22 18:33 Dose: 5 mg Documented By: Admin: 05/30/22 13:53 Dose: 5 mg Documented By: Admin: 05/29/22 22:09 Dose: 5 mg Documented By: Admin: 05/28/22 17:28 Dose: 5 mg Documented By: Admin: 05/28/22 13:23 Dose: 5 mg Documented By: Admin: 05/28/22 10:49 Dose: 5 mg Documented By: RYNE Oxycodone HCl (Oxycodone Ir 10 Mg Tablet) 10 mg PO Q3H PRN PRN Reason: Pain, Severe (7-10) Last Admin: 05/31/22 20:57 Dose: 10 mg Documented By: Polyethylene Glycol (Polyethylene Glycol 3350 17 Gm Powd.Pack) 17 gm PO DAILY PRN PRN Reason: Constipation Polyethylene Glycol (Polyethylene Glycol 3350 17 Gm Powd.Pack) 17 gm PO DAILY [facility] Last Admin: 06/03/22 08:18 Dose: 17 gm Documented By: Admin: 06/02/22 08:52 Dose: 17 gm Documented By: Admin: 06/01/22 08:21 Dose: 17 gm Documented By: Admin: 05/31/22 09:24 Dose: 17 gm Documented By: REJI Sennosides (Sennosides 8.6 Mg Tablet) 17.2 mg PO BEDTIME [facility] Last Admin: 06/02/22 20:42 Dose: 17.2 mg Documented By: Admin: 06/01/22 21:10 Dose: 17.2 mg Documented By: Admin: 05/31/22 20:13 Dose: 17.2 mg Documented By: Admin: 05/30/22 20:05 Dose: 17.2 mg Documented By: Admin: 05/29/22 21:21 Dose: 17.2 mg Documented By: Admin: 05/28/22 21:10 Dose: 17.2 mg Documented By: SERA Sennosides (Sennosides 8.6 Mg Tablet) 8.6 mg PO BID [facility] Last Admin: 06/01/22 08:20 Dose: 8.6 mg Documented By: Admin: 05/31/22 20:13 Dose: 8.6 mg Documented By: Admin: 05/31/22 09:26 Dose: 8.6 mg Documented By: REJI Sodium Chloride (Sodium Chloride 0.9% Flush) 10 ml IV BID [facility] Last Admin: 06/03/22 08:19 Dose: Not Given Documented By: Admin: 06/02/22 20:49 Dose: Not Given Documented By: Admin: 06/02/22 08:58 Dose: Not Given Documented By: Admin: 06/01/22 21:11 Dose: 10 ml Documented By: Admin: 06/01/22 08:21 Dose: 10 ml Documented By: Admin: 05/31/22 20:16 Dose: 10 ml Documented By: Admin: 05/31/22 09:28 Dose: 10 ml Documented By: Admin: 05/30/22 20:07 Dose: 10 ml Documented By: Admin: 05/30/22 09:07 Dose: 10 ml Documented By: Admin: 05/29/22 21:21 Dose: 10 ml Documented By: Admin: 05/29/22 09:08 Dose: 10 ml Documented By: BHARTI Sodium Chloride (Sodium Chloride 0.9% Flush) 10 ml IV PRN PRN PRN Reason: Flush Last Admin: 06/01/22 01:45 Dose: 10 ml Documented By: Admin: 05/29/22 03:40 Dose: 10 ml Documented By: SERA Spironolactone (Spironolactone 25 Mg Tablet) 25 mg PO DAILY [facility] Last Admin: 05/28/22 10:50 Dose: 25 mg Documented By: RYNE Thyroid (Thyroid, Pork 30 Mg Tablet) 60 mg PO 0600 [facility] Last Admin: 06/03/22 06:47 Dose: 60 mg Documented By: Admin: 06/02/22 05:08 Dose: 60 mg Documented By: Admin: 06/01/22 06:01 Dose: 60 mg Documented By: Admin: 05/31/22 06:18 Dose: 60 mg Documented By: Admin: 05/30/22 05:47 Dose: 60 mg Documented By: Admin: 05/29/22 05:44 Dose: Not Given Documented By: SERA Torsemide (Torsemide 10 Mg Tablet) 20 mg PO 6XD [facility] Tranexamic Acid (Tranexamic Acid 1,000 Mg Vial) 2,000 mg INJ INTRA-OP ONE Stop: 05/29/22 15:48 Last Admin: 05/29/22 17:26 Dose: 1,000 mg Documented By: Admin: 05/29/22 16:35 Dose: 1,000 mg Documented By: CHEPE Vital Signs Vital signs: Vital Signs - 8 hr 05/28/22 06:49 05/28/22 06:49 05/28/22 06:49 Temperature 98.2 F Pulse Rate 80 80 Respiratory Rate 16 Blood Pressure 136/64 136/64 Pulse Oximetry 96 Oxygen Delivery Method Room Air 05/28/22 07:00 05/28/22 07:31 05/28/22 07:32 Temperature Pulse Rate 80 81 80 Respiratory Rate Blood Pressure Pulse Oximetry 98 99 99 Oxygen Delivery Method 05/28/22 07:32 05/28/22 08:00 05/28/22 08:00 Temperature Pulse Rate 80 Respiratory Rate Blood Pressure 133/63 131/60 Pulse Oximetry 99 Oxygen Delivery Method Room Air MDM - Fall Lab Data 05/31/22 04:29 06/02/22 08:10 Labs: Lab Results 05/28/22 05/28/22 05/28/22 Range/Units 06:50 06:50 06:50 WBC 6.5 (4.5-11.0) X10^3/uL RBC 2.99 L (4.5-5.9) X10^6/uL Hgb 10.3 L (13.5-17.5) g/dL Hct 30.5 L (41-53) % MCV 102.0 H (80-100) fL MCH 34.5 H (26-34) PG MCHC 33.8 (30-36) % RDW 15.7 H (11.6-14.8) % Plt Count 200 (150-400) X10^3/uL Neut % (Auto) 71.0 (50-75) % Lymph % (Auto) 11.2 L (25-40) % [place] % (Auto) 14.3 H (3-14) % Eos % (Auto) 2.9 (2-4) % Baso % (Auto) 0.6 (0-2) % Neut # (Auto) 4600 (9274-1572) /uL Lymph # (Auto) 700 L (8507-2415) /uL [place] # (Auto) 900 (0-900) /uL Eos # (Auto) 200 (0-450) /uL Baso # (Auto) 0 (0-100) /uL PT 17.5 H (10.1-12.7) SECONDS INR 1.5 H (0.9-1.3) APTT 27 (26-36) SECONDS Sodium 135 L (137-145) mmol/L Potassium 3.7 (3.4-5.1) mmol/L Chloride 100 (98-107) mmol/L Carbon Dioxide 22 (22-32) mmol/L BUN 46 H (9-20) mg/dL Creatinine 1.98 H (0.66-1.25) mg/dL Estimated GFR 32 L (>60) mL/min BUN/Creatinine Ratio 23.2 H (6-22) Glucose 108 (80-110) mg/dL Calcium 10.5 H (8.4-10.2) mg/dL Total Bilirubin 0.6 (0.2-1.3) mg/dL AST 24 (17-59) IU/L ALT 23 (<50) IU/L Alkaline Phosphatase 189 H (38-126) U/L Total Creatine Kinase 68 (55-170) U/L CK-MB (CK-2) TNP CK-MB (CK-2) Rel Index TNP Troponin I 0.037 H (0.01-0.034) ng/mL NT-Pro-B Natriuret Pep 6210 H (<450) pg/mL Total Protein 7.3 (6.3-8.2) g/dL Albumin 4.0 (3.5-5.0) g/dL Globulin 3.3 (1.7-4.1) g/dL Albumin/Globulin Ratio 1.2 (1.0-2.8) Lipase 165 (23-300) U/L SARS-CoV-2 (PCR) (Negative) 05/28/22 Range/Units 08:15 WBC (4.5-11.0) X10^3/uL RBC (4.5-5.9) X10^6/uL Hgb (13.5-17.5) g/dL Hct (41-53) % MCV (80-100) fL MCH (26-34) PG MCHC (30-36) % RDW (11.6-14.8) % Plt Count (150-400) X10^3/uL Neut % (Auto) (50-75) % Lymph % (Auto) (25-40) % [place] % (Auto) (3-14) % Eos % (Auto) (2-4) % Baso % (Auto) (0-2) % Neut # (Auto) (4995-2182) /uL Lymph # (Auto) (9799-0441) /uL [place] # (Auto) (0-900) /uL Eos # (Auto) (0-450) /uL Baso # (Auto) (0-100) /uL PT (10.1-12.7) SECONDS INR (0.9-1.3) APTT (26-36) SECONDS Sodium (137-145) mmol/L Potassium (3.4-5.1) mmol/L Chloride (98-107) mmol/L Carbon Dioxide (22-32) mmol/L BUN (9-20) mg/dL Creatinine (0.66-1.25) mg/dL Estimated GFR (>60) mL/min BUN/Creatinine Ratio (6-22) Glucose (80-110) mg/dL Calcium (8.4-10.2) mg/dL Total Bilirubin (0.2-1.3) mg/dL AST (17-59) IU/L ALT (<50) IU/L Alkaline Phosphatase (38-126) U/L Total Creatine Kinase (55-170) U/L CK-MB (CK-2) CK-MB (CK-2) Rel Index Troponin I (0.01-0.034) ng/mL NT-Pro-B Natriuret Pep (<450) pg/mL Total Protein (6.3-8.2) g/dL Albumin (3.5-5.0) g/dL Globulin (1.7-4.1) g/dL Albumin/Globulin Ratio (1.0-2.8) Lipase (23-300) U/L SARS-CoV-2 (PCR) Negative (Negative) Discharge Plan Departure Patient Disposition: Admitted As Inpatient Clinical Impression: Closed displaced fracture of right femoral neck, Type 2 diabetes mellitus with cardiac complication, Chronic systolic CHF (congestive heart failure), NYHA class 1, Stage 3b chronic kidney disease, Atrial fibrillation Admit Date/Time: 05/28/22 08:21 Admit Provider: Fili Whitlock
[2022-05-28] MEDS: OXYCODONE IR 5 MG TABLET PO ×3 (10:49→17:28)
[2022-05-28] MEDS: carvediloL 12.5 MG TABLET PO (10:49)
[2022-05-28] MEDS: SPIRONOLACTONE 25 MG TABLET PO (10:50)
--- NOTE | 2022-05-28 11:08 | P.HP_ITS ---
History of Present Illness History of Present Illness Date Patient Seen: 05/28/22 Time Patient Seen: 11:08 Chief complaint: GLF hip pain Narrative: 86-year-old male history of diastolic/systolic congestive heart failure EF of 30-35%, CAD w/ CABG, PAD with lower extremity bypass, CKD stage III, hypertension, hyperlipidemia, gout, NIDDM, BPH who presents after a fall in his home. He was up going to the bathroom overnight, he became slightly dizzy when getting up and fell though he did not lose consciousness and he did not hit his head, he landed on his R side and called EMS for help. He has chronic dyspnea on exertion, able to walk about 1 block prior to getting short of breath. Does not think this has been any worse recently than usual, he denies fever, chills, dysuria, nausea, vomiting, or diarrhea. He has some chronic leg swelling also no worse than normal. In the emergency room, his vitals were unremarkable, though upon arrival to the hospital floor his O2 saturations were noted to be around 86% on room air, improved with supplemental oxygen. Imaging showed a Right femoral neck fracture of his hip. Chest XR is compatible with some volume overload and congestion. EKG showed a paced rhythm. Labs were notable for a chronic, stable anemia with Hg 10.3. Creatinine around baseline at 1.98, troponin 0.037, with proBNP of 6210. Covid testing was negative. He was admitted to hospitalist service for further management. 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 Wears glasses Surgical History Anesthesia History of back surgery (~2009) History of circumcision 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) History of prostate biopsy History of surgery (~1998) Family & Social History Family History Father Prostate cancer Coronary artery disease Mother Cancer Stroke Social History: household members spouse Safety & Behavioral: Feels Safe in Current Yes Environment Been Physically Hurt or No Threatened By a Person Tobacco & Substance use: Smoking Status Never smoker alcohol intake current alcohol intake frequency 0-2 drinks per day Substance Use Type does not use Meds Home Medications and Allergies Home Medications Medication Instructions Recorded Confirmed Type Icarin 60 mg PO BID 10/13/20 03/28/22 History apixaban 2.5 mg tablet (Eliquis) 2.5 mg PO BID 10/13/20 05/28/22 History ascorbic acid (vitamin C) 1,000 mg 1 g PO BID 10/13/20 05/28/22 History tablet coenzyme Q10 100 mg capsule 100 mg PO DAILY 10/13/20 05/28/22 History (CoQ-10) mecobalamin (vitamin B12) 5,000 100 mcg PO BEDTIME 10/13/20 05/28/22 History mcg lozenge prasterone (dhea) 25 mg capsule 25 mg PO .weekly 10/13/20 05/28/22 History (DHEA) probenecid 500 mg tablet 500 mg PO DAILY 10/13/20 05/28/22 History resveratrol 100 mg capsule 100 mg PO BID 10/13/20 05/28/22 History testosterone 50 mg/5 gram (1 %) 50 mg transdermal DAILY 10/13/20 05/28/22 History transdermal gel allopurinol 100 mg tablet 100 mg PO DAILY 02/04/22 05/28/22 History cyanocobalamin (vitamin B-12) 1,000 mcg IM QWEEK 02/04/22 05/28/22 History 1,000 mcg/mL injection solution ferrous sulfate 325 mg (65 mg 325 mg PO DAILY 02/04/22 05/28/22 History iron) tablet (FeroSul) glipizide 2.5 mg tablet, extended 2.5 mg PO DAILY 02/04/22 05/28/22 History release 24 hr letrozole 2.5 mg tablet 2.5 mg PO 3XW 02/04/22 05/28/22 History thyroid (pork) 60 mg tablet (S[employer]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 60 mg PO DAILY 02/04/22 05/28/22 History Thyroid) torsemide 20 mg tablet 20 mg PO 6XD 02/04/22 05/28/22 History valsartan 40 mg tablet 40 mg PO DAILY 02/04/22 05/28/22 History oxycodone 5 mg tablet 5 mg PO BID PRN pain #30 tabs 02/28/22 05/28/22 Rx carvedilol 6.25 mg tablet 6.25 mg PO BID 05/28/22 05/28/22 History finasteride 5 mg tablet 2.5 mg PO BEDTIME 05/28/22 05/28/22 History Allergies Allergy/AdvReac Type Severity Reaction Status Date / Time dextran 40 [DEXTRAN 40] Allergy Unknown Verified 03/28/22 12:56 morphine [MORPHINE] Allergy Unknown Verified 03/28/22 12:56 Review of Systems Review of Systems Narrative: All other systems reviewed with the patient and are negative unless otherwise stated. Exam Vital Signs (past 8 hours): - 05/28/22 06:49 05/28/22 06:49 05/28/22 06:49 Temperature 98.2 F Pulse Rate 80 80 Respiratory Rate 16 Blood Pressure 136/64 136/64 Pulse Oximetry 96 Oxygen Delivery Method Room Air Oxygen Flow Rate 05/28/22 07:00 05/28/22 07:31 05/28/22 07:32 Temperature Pulse Rate 80 81 80 Respiratory Rate Blood Pressure Pulse Oximetry 98 99 99 Oxygen Delivery Method Oxygen Flow Rate 05/28/22 07:32 05/28/22 08:00 05/28/22 08:00 Temperature Pulse Rate 80 Respiratory Rate Blood Pressure 133/63 131/60 Pulse Oximetry 99 Oxygen Delivery Method Room Air Oxygen Flow Rate 05/28/22 09:20 Temperature 97.7 F Pulse Rate 79 Respiratory Rate 18 Blood Pressure 127/59 L Pulse Oximetry 92 Oxygen Delivery Method Oxygen Flow Rate 2 Oxygen Delivery Method Room Air Oxygen Flow Rate 2 Narrative Exam Narrative: General:? Patient is well developed and well nourished, in no distress at this time. HEENT:? Normocephalic, atraumatic, extraocular muscles intact, oral pharynx is clear and mucous membranes are moist. Neck: supple and symmetric, trachea is midline, no cervical adenopathy. Negative for JVD Chest:? Normal AP diameter and contour without kyphoscoliosis, no tachypnea, equal chest rise bilaterally. Lungs:?bibasilar rales, no wheezing or rhonchi. Cardio:?RRR no m/r/g. Abdomen: S NT ND. Musculoskeletal:? Muscle strength and tone are equal within normal limits Extremities: No edema or joint effusions. No cyanosis or clubbing. Skin:? Pale,? Warm to touch,dry and intact without rashes, ulcerations or petechiae.? Neuro:? Alert and orientated x3,? sensation to touch intact in all extremities, no gross deficits noted of cranial nerves. Psych:? Patient has a well-kept appearance, appropriate affect, mental status at titude thought context and judgment are appropriate for age. Objective ECG Impression: Ventricular-paced rhythm Biventricular pacemaker detected As interpreted by me Labs Result Diagrams: 05/28/22 06:50 05/28/22 06:50 Labs: Laboratory Results - last 24 hr 05/28/22 05/28/22 05/28/22 06:50 06:50 06:50 WBC 6.5 RBC 2.99 L Hgb 10.3 L Hct 30.5 L MCV 102.0 H MCH 34.5 H MCHC 33.8 RDW 15.7 H Plt Count 200 Neut % (Auto) 71.0 Lymph % (Auto) 11.2 L [place] % (Auto) 14.3 H Eos % (Auto) 2.9 Baso % (Auto) 0.6 Neut # (Auto) 4600 Lymph # (Auto) 700 L [place] # (Auto) 900 Eos # (Auto) 200 Baso # (Auto) 0 PT 17.5 H INR 1.5 H APTT 27 Sodium 135 L Potassium 3.7 Chloride 100 Carbon Dioxide 22 BUN 46 H Creatinine 1.98 H Estimated GFR 32 L BUN/Creatinine Ratio 23.2 H Glucose 108 Calcium 10.5 H Total Bilirubin 0.6 AST 24 ALT 23 Alkaline Phosphatase 189 H Total Creatine Kinase 68 CK-MB (CK-2) TNP CK-MB (CK-2) Rel Index TNP Troponin I 0.037 H NT-Pro-B Natriuret Pep 6210 H Total Protein 7.3 Albumin 4.0 Globulin 3.3 Albumin/Globulin Ratio 1.2 Lipase 165 SARS-CoV-2 (PCR) 05/28/22 08:15 WBC RBC Hgb Hct MCV MCH MCHC RDW Plt Count Neut % (Auto) Lymph % (Auto) [place] % (Auto) Eos % (Auto) Baso % (Auto) Neut # (Auto) Lymph # (Auto) [place] # (Auto) Eos # (Auto) Baso # (Auto) PT INR APTT Sodium Potassium Chloride Carbon Dioxide BUN Creatinine Estimated GFR BUN/Creatinine Ratio Glucose Calcium Total Bilirubin AST ALT Alkaline Phosphatase Total Creatine Kinase CK-MB (CK-2) CK-MB (CK-2) Rel Index Troponin I NT-Pro-B Natriuret Pep Total Protein Albumin Globulin Albumin/Globulin Ratio Lipase SARS-CoV-2 (PCR) Negative Assessment & Plan Assessment & Plan narrative: 86-year-old male history of diastolic/systolic congestive heart failure EF of 30-35%, CAD w/ CABG, afib with chronic AC, PAD with lower extremity bypass, CKD stage III, hypertension, hyperlipidemia, gout, NIDDM, BPH admitted with a R femoral neck fracture. 1. Comminuted and displaced R refemoral neck fracture, acute, present on admission - management per orthopedic surgery, will need some mild diuresis for medical optimization, but he is high cardiac risk regardless. Will likely be medically optimized prior to reportedly planned interventions tomorrow. - plan for post operative troponins after surgery - unlikely ACS at this time but will repeat troponins, but did report dizziness prior to fall. EKG with paced rhythm. 2. Acute on chronic combined systolic and diastolic heart failure, present on admission with acute respiratory failure with hypoxia. - likely mild volume overload currently, he did desaturate to the mid 80s on room air on the hospital floor - give 1 dose lasix to assess response. Likely to continue furosemide IV 40 mg daily. - flores placed for accurate intake and output given acute chf and in the setting of femoral fracture / lack of mobility. - last TTE 08/2021 with EF 30-35%. 3. Myocardial injury - continue to follow troponins until downtrending - consider TTE if worsening troponins, but at this time will not change acute management. - unlikely ACS as discussed above. 4. CAD s/p CABG - continue home medications. 5. CKD stage III - appears to be near baseline creatinine, will continue to monitor and dose medications appropriately. 6. HTN - continue home medications, hold cheli inhibition prior to surgery. Resume after. 7. HLD - continue home statin 8. NIDDM - NANCI, if elevated sugars will start basal therapy. 9. BPH - continue home medications. Code: Full, surrogate is patient's DVT: SCDs. hold chemical ppx prior to surgical interventions, normally on full dose AC Dispo: admit as inpatient, suspect he will need SNF based on significant chronic disease after operative interventions. I have utilized all available immediate resources to obtain, update, or review the patient's current medications. COVID-19 COVID-19 status: Negative Time Spent With Patient Critical Care time: I spent a total of [] minutes of critical care time on this patient's care today; this time is exclusive of procedural time. Quality MIPS - Admit I confirm the patient?s Advance Care Plan is present, Code status is documented, Surrogate decision maker is in patient?s record [If Yes, STOP here]: Yes
[2022-05-28] MEDS: FUROSEMIDE 40 MG/4 ML VIAL IV (11:56)
[2022-05-28 12:52] LABS: Appearance Urine UA CLEAR; Bilirubin Urine UA NEGATIVE (NEGATIVE); Color Urine UA YELLOW; Glucose Urine UA NEGATIVE (Negative); Ketones Urine UA NEGATIVE (NEGATIVE); Leukocyte Esterase Urine UA NEGATIVE (NEGATIVE); Nitrite Urine UA NEGATIVE (Negative); Occult Blood Urine UA NEGATIVE (Negative); Protein Urine UA NEGATIVE (Negative); Urobilinogen Urine UA 0.2 E.U./dL (0.2); pH Urine UA 5.5 (4.5-8.0)
[2022-05-28 12:56] LABS: Bacteria Urine None Seen; Culture Indicated Urine Cult Not Indicated; RBC Urine None Seen (0-5/HPF); Urine Comments Microscopic Normal; WBC Urine None Seen (0-5/HPF)
[2022-05-28 15:08] LABS: Troponin I 0.023 ng/mL (0.01-0.034)
--- NOTE | 2022-05-28 18:04 | P.CONS_ITS ---
History of Present Illness Consult details Date Patient Seen: 05/28/22 Time Patient Seen: 18:04 Chief complaint: GLF hip pain Reason for consult: Right femoral neck fracture Requesting provider: Lopez Grimm Narrative: The patient is an 86-year-old gentleman who was rushing to the bathroom this morning when he lost his balance and reached for a hand hold but missed it. He fell sustaining an injury to his right hip. He was seen at [facility] Emergency room. Radiographs have revealed a displaced right femoral neck fracture. He has multiple medical problems and has been admitted to the medical service for stabilization prior to potential surgery. He is on Eliquis for atrial fibrillation. He last took this yesterday evening. Meds Home Medications and Allergies Home Medications Medication Instructions Recorded Confirmed Type Icarin 60 mg PO BID 10/13/20 03/28/22 History apixaban 2.5 mg tablet (Eliquis) 2.5 mg PO BID 10/13/20 05/28/22 History ascorbic acid (vitamin C) 1,000 mg 1 g PO BID 10/13/20 05/28/22 History tablet coenzyme Q10 100 mg capsule 100 mg PO DAILY 10/13/20 05/28/22 History (CoQ-10) mecobalamin (vitamin B12) 5,000 100 mcg PO BEDTIME 10/13/20 05/28/22 History mcg lozenge prasterone (dhea) 25 mg capsule 25 mg PO .weekly 10/13/20 05/28/22 History (DHEA) probenecid 500 mg tablet 500 mg PO DAILY 10/13/20 05/28/22 History resveratrol 100 mg capsule 100 mg PO BID 10/13/20 05/28/22 History testosterone 50 mg/5 gram (1 %) 50 mg transdermal DAILY 10/13/20 05/28/22 History transdermal gel allopurinol 100 mg tablet 100 mg PO DAILY 02/04/22 05/28/22 History cyanocobalamin (vitamin B-12) 1,000 mcg IM QWEEK 02/04/22 05/28/22 History 1,000 mcg/mL injection solution ferrous sulfate 325 mg (65 mg 325 mg PO DAILY 02/04/22 05/28/22 History iron) tablet (FeroSul) glipizide 2.5 mg tablet, extended 2.5 mg PO DAILY 02/04/22 05/28/22 History release 24 hr letrozole 2.5 mg tablet 2.5 mg PO 3XW 02/04/22 05/28/22 History thyroid (pork) 60 mg tablet (HEAD [employer]NER DEVELOPMENT 60 mg PO DAILY 02/04/22 05/28/22 History Thyroid) torsemide 20 mg tablet 20 mg PO 6XD 02/04/22 05/28/22 History valsartan 40 mg tablet 40 mg PO DAILY 02/04/22 05/28/22 History oxycodone 5 mg tablet 5 mg PO BID PRN pain #30 tabs 02/28/22 05/28/22 Rx carvedilol 6.25 mg tablet 6.25 mg PO BID 05/28/22 05/28/22 History finasteride 5 mg tablet 2.5 mg PO BEDTIME 05/28/22 05/28/22 History Allergies Allergy/AdvReac Type Severity Reaction Status Date / Time dextran 40 [DEXTRAN 40] Allergy Unknown Verified 03/28/22 12:56 morphine [MORPHINE] Allergy Unknown Verified 03/28/22 12:56 Review of Systems Review of Systems Narrative: He reports no acute health changes prior to the fall. He has chronic multiple medical problems. Exam Vital Signs (past 8 hours): - 05/28/22 11:48 05/28/22 13:20 05/28/22 14:18 Temperature 98.8 F Pulse Rate 80 Respiratory Rate 16 Blood Pressure 127/60 Pulse Oximetry 94 95 Oxygen Delivery Method Nasal Cannula Nasal Cannula Oxygen Flow Rate 2 2 05/28/22 17:27 Temperature Pulse Rate Respiratory Rate Blood Pressure Pulse Oximetry 95 Oxygen Delivery Method Room Air Oxygen Flow Rate 2 Oxygen Delivery Method Room Air Oxygen Flow Rate 2 Narrative Exam Narrative: The patient is resting comfortably in his hospital bed. The skin over the right hip at the site of the proposed incision is intact with no signs of infection or lesions. The right lower extremity is shortened and externally rotated. He has intact light touch in the superficial and deep peroneal nerve distribution as well as the tibial nerve distribution. He can extend and flex his toes on command. He has a 2+ dorsalis pedis pulse. Objective Labs Result Diagrams: 05/28/22 06:50 05/28/22 06:50 Labs: Laboratory Results - last 24 hr 05/28/22 05/28/22 05/28/22 06:50 06:50 06:50 WBC 6.5 RBC 2.99 L Hgb 10.3 L Hct 30.5 L MCV 102.0 H MCH 34.5 H MCHC 33.8 RDW 15.7 H Plt Count 200 Neut % (Auto) 71.0 Lymph % (Auto) 11.2 L [place] % (Auto) 14.3 H Eos % (Auto) 2.9 Baso % (Auto) 0.6 Neut # (Auto) 4600 Lymph # (Auto) 700 L [place] # (Auto) 900 Eos # (Auto) 200 Baso # (Auto) 0 PT 17.5 H INR 1.5 H APTT 27 Sodium 135 L Potassium 3.7 Chloride 100 Carbon Dioxide 22 BUN 46 H Creatinine 1.98 H Estimated GFR 32 L BUN/Creatinine Ratio 23.2 H Glucose 108 Calcium 10.5 H Total Bilirubin 0.6 AST 24 ALT 23 Alkaline Phosphatase 189 H Total Creatine Kinase 68 CK-MB (CK-2) TNP CK-MB (CK-2) Rel Index TNP Troponin I 0.037 H NT-Pro-B Natriuret Pep 6210 H Total Protein 7.3 Albumin 4.0 Globulin 3.3 Albumin/Globulin Ratio 1.2 Lipase 165 Urine Color Urine Appearance Urine pH Ur Specific [place] Urine Protein Urine Glucose (UA) Urine Ketones Urine Occult Blood Urine Nitrate Urine Bilirubin Urine Urobilinogen Ur Leukocyte Esterase Urine RBC Urine WBC Urine Bacteria Ur Culture Indicated? Micro UA Comment Nasal Screen MRSA (PCR) SARS-CoV-2 (PCR) 05/28/22 05/28/22 05/28/22 08:15 09:45 12:50 WBC RBC Hgb Hct MCV MCH MCHC RDW Plt Count Neut % (Auto) Lymph % (Auto) [place] % (Auto) Eos % (Auto) Baso % (Auto) Neut # (Auto) Lymph # (Auto) [place] # (Auto) Eos # (Auto) Baso # (Auto) PT INR APTT Sodium Potassium Chloride Carbon Dioxide BUN Creatinine Estimated GFR BUN/Creatinine Ratio Glucose Calcium Total Bilirubin AST ALT Alkaline Phosphatase Total Creatine Kinase CK-MB (CK-2) CK-MB (CK-2) Rel Index Troponin I NT-Pro-B Natriuret Pep Total Protein Albumin Globulin Albumin/Globulin Ratio Lipase Urine Color Yellow Urine Appearance Clear Urine pH 5.5 Ur Specific [place] 1.010 Urine Protein Negative Urine Glucose (UA) Negative Urine Ketones Negative Urine Occult Blood Negative Urine Nitrate Negative Urine Bilirubin Negative Urine Urobilinogen 0.2 Ur Leukocyte Esterase Negative Urine RBC None seen Urine WBC None seen Urine Bacteria None seen Ur Culture Indicated? Cult not indicated Micro UA Comment Microscopic normal Nasal Screen MRSA (PCR) Negative for mrsa SARS-CoV-2 (PCR) Negative 05/28/22 14:32 WBC RBC Hgb Hct MCV MCH MCHC RDW Plt Count Neut % (Auto) Lymph % (Auto) [place] % (Auto) Eos % (Auto) Baso % (Auto) Neut # (Auto) Lymph # (Auto) [place] # (Auto) Eos # (Auto) Baso # (Auto) PT INR APTT Sodium Potassium Chloride Carbon Dioxide BUN Creatinine Estimated GFR BUN/Creatinine Ratio Glucose Calcium Total Bilirubin AST ALT Alkaline Phosphatase Total Creatine Kinase CK-MB (CK-2) CK-MB (CK-2) Rel Index Troponin I 0.023 NT-Pro-B Natriuret Pep Total Protein Albumin Globulin Albumin/Globulin Ratio Lipase Urine Color Urine Appearance Urine pH Ur Specific [place] Urine Protein Urine Glucose (UA) Urine Ketones Urine Occult Blood Urine Nitrate Urine Bilirubin Urine Urobilinogen Ur Leukocyte Esterase Urine RBC Urine WBC Urine Bacteria Ur Culture Indicated? Micro UA Comment Nasal Screen MRSA (PCR) SARS-CoV-2 (PCR) Radiographs are reviewed. These reveal a displaced right femoral neck fracture. 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 Wears glasses Surgical History Anesthesia History of back surgery (~2009) History of circumcision 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) History of prostate biopsy History of surgery (~1998) Family History Father Prostate cancer Coronary artery disease Mother Cancer Stroke Social History marital status: number of children: 3 household members: spouse occupational status: previously employed Tobacco & Substance Use Smoking Status: Never smoker alcohol intake: current substance use type: does not use Diet and Exercise caffeine: Yes Assessment & Plan Assessment & Plan narrative: The patient is an 86-year-old gentleman with a right hip femoral neck fracture. He is anticoagulated at baseline for his atrial fibrillation. This has been stopped. He is currently being diuresed by the medical service for fluid overload. I have spoken to the hospitalist provider, who confirms that he likely will be stabilized for surgery by tomorrow afternoon. He is currently scheduled for a right hip hemiarthroplasty at approximately 3 in the afternoon tomorrow. He will need to be NPO after midnight in case his surgery goes earlier. I have discussed the risks, benefits and alternatives to hemiarthroplasty with the patient. Risks discussed included but were not limited to: Leg length discrepancy, dislocation, failure to relieve pain, infection, nerve damage, deep venous thrombosis, pulmonary embolism, stroke, myocardial infarction, permanent paralysis and . He has agreed to proceed after this discussion and given his signed informed consent. COVID-19 COVID-19 status: Negative Result date/Date tested (Pos, Neg/Pending): 05/28/22 Time Spent With Patient Time with patient: 30 to 49 minutes with 50% spent counseling/coordinating care Critical Care time: I spent a total of [] minutes of critical care time on this patient's care today; this time is exclusive of procedural time.
--- NOTE | 2022-05-28 18:53 | PC.NURSE ---
Patient alert and oriented, pleasant. Patient states oxycodone is helping manage his pain well. Patterson in place draining clear yellow urine. VSS. NPO after midnight for surgery tomorrow. Bed alarm on for safety. Call light within reach.
[2022-05-28] MEDS: HYDROMORPHONE 1 MG INJ IV (20:08)
[2022-05-28] MEDS: ONDANSETRON 4 MG/2 ML INJ IV (20:09)
[2022-05-28] MEDS: carvediloL 3.125 MG TABLET 6.25 MG PO (21:09)
[2022-05-28] MEDS: SENNOSIDES 8.6 MG TABLET 17.2 MG PO (21:10)
[2022-05-28] MEDS: FINASTERIDE 5 MG TABLET 2.5 MG PO (21:10)
--- NOTE | 2022-05-28 23:22 | PC.NURSE ---
Addendum entered by Josy Blank R.N. 05/29/22 05:52: Patient encouraged to C,DB with rationale explained. Patient occasionally desats with sleep. Remains on 2L NC. Ortho checks remain stable with good CMS to RLE. Patient reports pain 7/10 to RLE prior to administration of analgesia. Patient sleeping after administration of Dilaudid. Patterson draining adequate amounts of yellow urine. NPO after midnight. Original Note: Patient alert and oriented x4. Patient medicated for Dilaudid for C/O R hip pain 04/06 at 2007. Patient dozing after medicated with IV Dilaudid per EMAR. Patient medicated with Onedestran for C/O nausea. Patient states no pain when repositioned using Va bed. Patient denies nausea and able to tolerate hs medications with crackers and water. RLE with stable CMS and Positive pedal pulses.
[2022-05-29] VITALS (53 sets, daily range): BP systolic 87–151; BP diastolic 43–102; PULSE 16–95; RESP 15–25; TEMP 36.4–37.9; O2SAT 88–99; BMI 23.8
--- NOTE | 2022-05-29 | DI.RAD.S_ITS ---
PROCEDURE: XR PELVIS 1-2V INDICATIONS: inter op ángela TECHNIQUE: 1 view of the lower pelvis acquired. COMPARISON: None. FINDINGS: Bones: Patient is status post right hip hip arthroplasty, with hardware components in expected positions. The hip joint appears congruent. The visualized bony structures appear intact. Soft tissues: Overlying postoperative changes are noted. No suspicious soft tissue densities. IMPRESSION: Postop changes from right hip arthroplasty with anatomic right hip alignment. Dictated by: Max Gonzalez M.D. on 05/29/2022 at 17:28 Approved by: Max Gonzalez M.D. on 05/29/2022 at 17:29
[2022-05-29] MEDS: HYDROMORPHONE 1 MG INJ IV ×3 (03:39→15:05)
[2022-05-29] MEDS: SODIUM CHLORIDE 0.9% FLUSH 10 ML IV ×3 (03:40→21:21)
[2022-05-29 06:16] LABS: Add Manual Diff / Slide Review NO; Basophils Absolute Auto 0 /uL (0-100); Basophils Percent Auto 0.4 % (0-2); Eosinophils Absolute Auto 600 /uL (0-450); Eosinophils Percent Auto 6.5 % (2-4); Hematocrit 30.5 % (41-53); Hemoglobin 10.2 g/dL (13.5-17.5); Lymphocytes Absolute Auto 700 /uL (1100-4500); Lymphocytes Percent Auto 7.5 % (25-40); Mean Corpuscular HGB Conc 33.6 % (30-36); Mean Corpuscular Hemoglobin 34.8 PG (26-34); Mean Corpuscular Volume 103.6 fL (80-100); Monocytes Absolute Auto 1300 /uL (0-900); Monocytes Percent Auto 14.7 % (3-14); Neutrophils Absolute Auto 6300 /uL (1500-7000); Neutrophils Percent Auto 70.9 % (50-75); Platelet Count 183 X10^3/uL (150-400); Red Blood Cell Count 2.95 X10^6/uL (4.5-5.9); Red Cell Distribution Width 15.8 % (11.6-14.8); White Blood Cell Count 8.8 X10^3/uL (4.5-11.0)
[2022-05-29 06:27] LABS: Alanine Aminotransferase 21 IU/L (<50); Albumin Globulin Ratio 1.2 (1.0-2.8); Alkaline Phosphatase 142 U/L (38-126); Aspartate Aminotransferase 23 IU/L (17-59); BUN Creatinine Ratio 24.2 (6-22); Bilirubin Total 0.8 mg/dL (0.2-1.3); Blood Urea Nitrogen 45 mg/dL (9-20); Carbon Dioxide 24 mmol/L (22-32); Chloride 98 mmol/L (98-107); Estimated Glomerular Filt Rate 35 mL/min (>60); Globulin 3.3 g/dL (1.7-4.1); Glucose 107 mg/dL (80-110); HEMOLYSIS < 15 (0-50); Magnesium 1.9 mg/dL (1.6-2.3); Sodium 135 mmol/L (137-145); Total Protein 7.3 g/dL (6.3-8.2)
[2022-05-29] MEDS: carvediloL 3.125 MG TABLET 6.25 MG PO ×2 (09:21→21:19)
[2022-05-29] MEDS: FUROSEMIDE 40 MG/4 ML VIAL IV (09:21)
--- NOTE | 2022-05-29 11:47 | CM.DANOTE ---
Patient is an 86 yo male who was admitted on 05/28/22 for GLF/hip pain. Pt has [facility] MCR for insurance and his PCP is Dr. Ry Ash. EMR was reviewed. Per , pt with hx of CHF and stage 3 kidney disease and SOB and had GLF with hip fx. Per Ortho , pt to have hip surgery this afternoon around 1530 after anticoagulation and diuresis. SW met bedside with pt and explained role and he confirms he lives with his spouse in [facility] and does not think he completed DPOA pwk but has Living Will. Pt states he is mostly independent with ADL's at baseline and drives and spouse no longer drives. They have adult children but none live locally but they have very supportive [employer] study group that have offered to assist as needed with transport or help at home. Pt denies any hx of SNF but states he is aware SNF may be needed after hip surgery. Pt states his spouse had hip fx 3 years ago and they used HH at that time and found it helpful. Pt would be agreeable with HH or SNF pending surgery and PT eval tomorrow to determine d/c planning needs. Pt has [employer] MCR and would need auth for SNF if SNF needed. Plan: SW to follow for PT eval in the AM post hip surgery this afternoon towards determining HH vs SNF at d/c. Per MD, pt will likely need some time to get back on his home meds post surgery which will help allow for d/c plan to be determined and SNF auth initiated if SNF needed. SANDRA Edmonds Discharge Planning/Care Management Advanced directive, confirm from FAMILY Start: 05/28/22 12:13 Freq: Q24H Status: Complete Protocol: Document 05/28/22 12:13 CLP (Rec: 05/28/22 12:13 CLP [id number]) Advance Directive, confirm on record Time 12:13 Person contacted Jacque Copy received No Document 05/29/22 08:24 BHARTI (Rec: 05/29/22 08:24 BHARTI [id number]) Advance Directive, confirm on record Time 12:13 Person contacted Jacque Copy received No Time 08:24 Person contacted pt Copy received No CM Discharge Assessment Start: 05/29/22 11:44 Freq: Status: Active Protocol: Document 05/29/22 11:44 BF (Rec: 05/29/22 11:47 BF [id number]) Discharge Planning Assessment Assigned Ell Teacher SANDRA Luis DPOA/Assigned Designee Name none, informally spouse Advance Directives? Yes Advance Directives on File No History Provided By Patient,Significant Other, Medical Record Has Patient been admitted in last 30 No days? Prior Living Arrangements House Household Members spouse Type of transporation used prior to Drives own vehicle admit Comment spouse no longer drives, have supportive bible study group that are willing to assist as needed even with transport Independent with ADL's Yes Is patient alert and oriented? Yes Needs Assistance With Home Chores / Shopping Caregiver for Another No Comment have a private caregiver that helps occassionally as needed Patient/Family Preference Half-Way Facility,Home with Home Health Comment SNF vs HH pending surgery and PT eval tomorrow Barriers to Discharge No Discharge Plan Home with Home Health Transportation Arrangement Spouse does not drive, so friend if safe for home vs SNF facility van Additional Comment HH vs SNF pending PT eval after surgery this PM Whiteboard Updated in Patient Room with Yes name and ext. # of Ell Teacher Review Status In Process Please Provide Date Initial DC 05/29/22 Assessment Was Performed Next Review Type Continued Stay Review
--- NOTE | 2022-05-29 12:28 | P.PN_ITS ---
Subjective Subjective Date Patient Seen: 05/29/22 Interval history: Reports pain is well controlled, denies chest pain or shortness of breath today. No fever or chills. Exam Vital Signs (past 8 hours): - 05/29/22 05:00 05/29/22 09:00 05/29/22 09:44 Temperature 99.3 F Pulse Rate 80 Respiratory Rate 19 Blood Pressure 135/60 Pulse Oximetry 96 97 Oxygen Delivery Method Nasal Cannula Oxygen Flow Rate 2 0 05/29/22 08:13 Temperature Pulse Rate Respiratory Rate Blood Pressure Pulse Oximetry Oxygen Delivery Method Nasal Cannula Oxygen Flow Rate Oxygen Delivery Method Nasal Cannula Oxygen Flow Rate 0 Narrative Exam Narrative: General:? Patient is well developed and well nourished, in no distress at this time. HEENT:? Normocephalic, atraumatic, extraocular muscles intact, oral pharynx is clear and mucous membranes are moist. Neck: supple and symmetric, trachea is midline, no cervical adenopathy. Negative for JVD Chest:? Normal AP diameter and contour without kyphoscoliosis, no tachypnea, equal chest rise bilaterally. Lungs:?bibasilar rales, no wheezing or rhonchi. Cardio:?RRR no m/r/g. Abdomen: S NT ND. Musculoskeletal:? Muscle strength and tone are equal within normal limits Extremities: No edema or joint effusions. No cyanosis or clubbing. RLE short and externally rotated. Skin:? Pale,? Warm to touch,dry and intact without rashes, ulcerations or petechiae.? Neuro:? Alert and orientated x3,? sensation to touch intact in all extremities, no gross deficits noted of cranial nerves. Psych:? Patient has a well-kept appearance, appropriate affect, mental status attitude thought context and judgment are appropriate for age. Objective Labs Result Diagrams: 05/29/22 05:16 05/29/22 05:16 Labs: Laboratory Results - last 24 hr 05/28/22 05/28/22 05/29/22 12:50 14:32 05:16 WBC 8.8 RBC 2.95 L Hgb 10.2 L Hct 30.5 L MCV 103.6 H MCH 34.8 H MCHC 33.6 RDW 15.8 H Plt Count 183 Neut % (Auto) 70.9 Lymph % (Auto) 7.5 L [place] % (Auto) 14.7 H Eos % (Auto) 6.5 H Baso % (Auto) 0.4 Neut # (Auto) 6300 Lymph # (Auto) 700 L [place] # (Auto) 1300 H Eos # (Auto) 600 H Baso # (Auto) 0 Sodium Potassium Chloride Carbon Dioxide BUN Creatinine Estimated GFR BUN/Creatinine Ratio Glucose Calcium Magnesium Total Bilirubin AST ALT Alkaline Phosphatase Troponin I 0.023 Total Protein Albumin Globulin Albumin/Globulin Ratio Urine Color Yellow Urine Appearance Clear Urine pH 5.5 Ur Specific [place] 1.010 Urine Protein Negative Urine Glucose (UA) Negative Urine Ketones Negative Urine Occult Blood Negative Urine Nitrate Negative Urine Bilirubin Negative Urine Urobilinogen 0.2 Ur Leukocyte Esterase Negative Urine RBC None seen Urine WBC None seen Urine Bacteria None seen Ur Culture Indicated? Cult not indicated Micro UA Comment Microscopic normal 05/29/22 05:16 WBC RBC Hgb Hct MCV MCH MCHC RDW Plt Count Neut % (Auto) Lymph % (Auto) [place] % (Auto) Eos % (Auto) Baso % (Auto) Neut # (Auto) Lymph # (Auto) [place] # (Auto) Eos # (Auto) Baso # (Auto) Sodium 135 L Potassium 4.0 Chloride 98 Carbon Dioxide 24 BUN 45 H Creatinine 1.86 H Estimated GFR 35 L BUN/Creatinine Ratio 24.2 H Glucose 107 Calcium 10.0 Magnesium 1.9 Total Bilirubin 0.8 AST 23 ALT 21 Alkaline Phosphatase 142 H Troponin I Total Protein 7.3 Albumin 4.0 Globulin 3.3 Albumin/Globulin Ratio 1.2 Urine Color Urine Appearance Urine pH Ur Specific [place] Urine Protein Urine Glucose (UA) Urine Ketones Urine Occult Blood Urine Nitrate Urine Bilirubin Urine Urobilinogen Ur Leukocyte Esterase Urine RBC Urine WBC Urine Bacteria Ur Culture Indicated? Micro UA Comment [facility] Medical History Allergies Aneurysm of right popliteal artery Atrial fibrillation (~2014) BPH (benign prostatic hyperplasia) BPH w urinary obs/LUTS CAD (coronary artery disease), [place] coronary artery Chicken pox Chronic systolic CHF (congestive heart failure), NYHA class 1 Congestive heart failure Coronary heart disease Elevated PSA (~2004) Essential (primary) hypertension Foot pain Ganglion cyst Gout Gout Hearing loss Heart attack Hypertension Low testosterone (~2008) Measles Mixed hyperlipidemia Mumps Osteoporosis Peripheral neuropathy Shoulder pain 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 Wears glasses Surgical History Anesthesia History of back surgery (~2009) History of circumcision 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) History of prostate biopsy History of surgery (~1998) Family History Father Prostate cancer Coronary artery disease Mother Cancer Stroke Social History marital status: number of children: 3 household members: spouse occupational status: previously employed Smoking Status: Never smoker alcohol intake: current substance use type: does not use caffeine: Yes Assessment & Plan Assessment & Plan narrative: 86-year-old male history of diastolic/systolic congestive heart failure EF of 30-35%, CAD w/ CABG, afib with chronic AC, PAD with lower extremity bypass, CKD stage III, hypertension, hyperlipidemia, gout, NIDDM, BPH admitted with a R femoral neck fracture. 1. Comminuted and displaced R refemoral neck fracture, acute, present on admission - management per orthopedic surgery, he is high cardiac risk but now appears medically optimized prior to surgical interventions today. - plan for post operative troponins after surgery 2. Acute on chronic combined systolic and diastolic heart failure, present on admission with acute respiratory failure with hypoxia. - likely mild volume overload on admission improved with light diuresis, he did desaturate to the mid 80s on room air on the hospital floor. Also possible pain medications / opiates are contributing to respiratory failure as well. - continue furosemide IV 40 mg daily. - flores placed for accurate intake and output given acute chf and in the setting of femoral fracture / lack of mobility. - last TTE 08/2021 with EF 30-35%. 3. Myocardial injury - continued to follow troponins until downtrending -TTE at this time will not change acute management. - unlikely ACS as discussed above. 4. CAD s/p CABG - continue home medications. 5. CKD stage III - appears to be near baseline creatinine, will continue to monitor and dose medications appropriately. 6. HTN - continue home medications, hold cheli inhibition prior to surgery. Resume after. 7. HLD - continue home statin 8. NIDDM - NANCI, if elevated sugars will start basal therapy. 9. BPH - continue home medications. Code: Full, surrogate is patient's DVT: SCDs. hold chemical ppx prior to surgical interventions, normally on full dose AC Dispo: admit as inpatient, suspect he will need SNF based on significant chronic disease after operative interventions. I have utilized all available immediate resources to obtain, update, or review the patient's current medications. COVID-19 COVID-19 status: Negative Time Spent With Patient Critical Care time: I spent a total of [] minutes of critical care time on this patient's care today; this time is exclusive of procedural time.
--- NOTE | 2022-05-29 15:17 | PC.NURSE ---
Addendum entered by Desi Sidhu R.N. 05/29/22 18:51: Patient back to room 228 at 1835. Alert and oriented (slight forgetfulness and confusion but able to reorient). Denies pain. On 4l nc with SpO2 93-95%. Encouraged to cough and deep breathe, pt able to do multiple return demos. Independently using oral suction to assist in secretions. Aquacel dressing C/D/I to right hip. CMS intact to BLEs. Family at bedside. Original Note: Day Shift Note Patient to surgery at 1514. Cleansed with CHG wipes prior to pickup and medicated with 0.5 ml IV dilaudid. On 2L NC with SpO2 95%, desats to mid-80s when sleeping. Patterson catheter patent and draining clear yellow urine. HR in the 80s, BP stable. in room and updated on plan of care.
--- NOTE | 2022-05-29 15:37 | PM.PREOP ---
Pre-operative Note COVID-19 COVID-19 status: Negative Result date/Date tested (Pos, Neg/Pending): 05/28/22 Interval Note History & Physical reviewed/Exam performed by Physician: Yes Changes to H&P: No
[2022-05-29] MEDS: CEFAZOLIN 2 GM/100 ML PREMIX 100 ML IV (16:29)
[2022-05-29] MEDS: TRANEXAMIC ACID 1,000 MG VIAL 2000 MG INJ ×2 (16:35→17:26)
--- NOTE | 2022-05-29 16:39 | SUR.OPER ---
Lateral on padded OR bed. Gel axillary roll. Arms secured on padded armboard with pillow supporting top arm. Padded hip positioner braces x4 - anterior and posterior chest and pelvis. Additional gel pad used anterior pelvis. Gel pad under bottom leg from knee to foot and secured with tape over sheet.
[2022-05-29] MEDS: BUPIVACAINE 0.5% W/ EPI (PF) 30 ML VIAL INJ (16:47)
[2022-05-29] MEDS: EPINEPHrine 1 MG/ML TOP (16:49)
--- NOTE | 2022-05-29 17:44 | PM.OP.1 ---
Operative Date/Time/Diagnoses Date of procedure: 05/29/22 Time of procedure: 17:44 Pre-op diagnosis: Right femoral neck fracture Post-op diagnosis: same Procedure & Clinicians Procedure: Right hip hemiarthroplasty Same procedure as scheduled: Yes Indications: The patient is an 86-year-old gentleman who fell sustaining a right femoral neck fracture. He is agreed to undergo hemiarthroplasty after discussion of the risks benefits and alternatives as documented in my consultation note. Surgeon: Chinmay Lobo Wedding Consultant: Mildred Brown Yes if Unassisted: No Anesthesia Type: General and Local Operative Notes Findings: Femoral neck fracture, displaced and closed. Closure Type: primary Specimen(s): none sent Prosthetic devices, grafts, tissues, transplants, or devices: Implants used in this procedure were manufactured by the [employer] with the exception of the bone plug. These included a tandem unipolar 50 mm cobalt chromium femoral head with a +0 neck and a size 14 synergy cemented stem with a 13 mm distal cement centralizer. A medium-size plastic bone plug was also implanted. Applied: implant(s) Estimated Blood Loss (mL): 100 Blood products transfused: none Procedure in detail: The patient was seen in the pre-operative area, where they identified the right hip as the operative site and this was marked with my initials. The patient received pre-operative antibiotics and was taken to the operating room and placed on the operative table in the left lateral decubitus position after satisfactory anesthesia. A time clock repairer out was performed. The right leg was prepared from the ankle to the iliac crest with ChloroPrep in the usual fashion and draped through sterile drapes. The hip was approached through an approximately 15 cm incision centered over the greater trochanter and curving gently posteriorly as it went proximally. This was carried sharply to the fascia naty, which was divided and retracted with a self-retaining retractor. The trochanteric bursa was excised with care being taken to avoid the sciatic nerve, which was identified and protected throughout the case. The short external rotators were incised and the capsulomuscular flap was raised and tagged for later repair. The femoral head was removed with a ?corkscrew?, and the femoral neck osteotomy performed approximately 15 mm above the lesser trochanter. Retractors were placed to expose the acetabulum and a trial femoral head placed to confirm the size of the ball. We then turned our attention to the femur. The canal was opened with a box cutting osteotome, followed by a T handled reamer and a lateralizing reamer. T-handled reamers were used to size the femoral canal. The broaches were used, sequentially enlarging until a good fit was obtained. A trial head and neck were then placed and the hip relocated and checked for leg length and stability. The patient was stable in the position of sleep, of squatting, and could be put through a range of motion with 45 degrees internal rotation without dislocation. At 90 degrees flexion, internal rotation to in excess of 70? was possible before dislocation. This was felt to be satisfactory and the appropriate components were opened, and the trials were removed. The canal was prepared by placing a distal cement plug. The pulsatile lavage was used followed by an epinephrine-soaked sponge for hemostasis. Cement was then retrograde injected and pressurized. The final stem was then impacted into the prepared femoral canal. Finally the femoral head was impacted onto the stem. The acetabulum was cleared of all material and the hip relocated one final time. Radiographs were obtained intra-operatively confirming the position of all components and confirming that there were no iatrogenic fractures. The capsulomuscular flap was then repaired to the greater trochanter though an awl hole using the tag sutures. The fascia naty was closed with running and interrupted 0 Vicryl. The subcutaneous layer was closed with interrupted 3-0 Vicryl, and the skin with a running 3-0 V-Lock suture and Dermabond. An Aquacel Ag dressing was applied and the patient was taken to recovery having tolerated the procedure well. The assistance of a skilled surgical services coordinator was necessary during this case to provide positioning of the leg and exposure as well as protection of vital structures such as the sciatic nerve. The procedure could not have been performed in an expedient fashion without the services of Ms. Garcia. Complications: none Post-operative Condition: stable Disposition: ICU Plan for aftercare: The patient will be returned to the care of the Internal Medicine service for his multiple medical problems. He will be treated with physical therapy to begin mobilization. If he is medically stable he may be discharged home however it is likely he will be discharged to a long-term facility for a period of rehabilitation before returning to the home environment.
[2022-05-29] MEDS: LACTATED RINGERS 1,000 ML 42 ML IV (17:47)
[2022-05-29] MEDS: DOCUSATE 100 MG CAPSULE PO (21:20)
[2022-05-29] MEDS: FINASTERIDE 5 MG TABLET 2.5 MG PO (21:20)
[2022-05-29] MEDS: SENNOSIDES 8.6 MG TABLET 17.2 MG PO (21:21)
[2022-05-29] MEDS: OXYCODONE IR 5 MG TABLET PO (22:09)
[2022-05-30] VITALS (32 sets, daily range): BP systolic 70–122; BP diastolic 40–67; PULSE 78–84; RESP 19–21; TEMP 37.1–37.4; O2SAT 92–100
[2022-05-30] MEDS: CEFAZOLIN 2 GM/100 ML PREMIX 100 ML IV ×2 (00:56→08:53)
[2022-05-30] MEDS: ACETAMINOPHEN 325 MG TABLET 650 MG PO ×5 (00:57→23:18)
[2022-05-30 05:07] LABS: Add Manual Diff / Slide Review NO; Basophils Absolute Auto 0 /uL (0-100); Basophils Percent Auto 0.2 % (0-2); Eosinophils Absolute Auto 100 /uL (0-450); Eosinophils Percent Auto 0.7 % (2-4); Hematocrit 24.8 % (41-53); Hemoglobin 8.4 g/dL (13.5-17.5); Lymphocytes Absolute Auto 600 /uL (1100-4500); Lymphocytes Percent Auto 5.3 % (25-40); Mean Corpuscular HGB Conc 33.6 % (30-36); Mean Corpuscular Hemoglobin 34.9 PG (26-34); Mean Corpuscular Volume 103.8 fL (80-100); Monocytes Absolute Auto 1300 /uL (0-900); Monocytes Percent Auto 12.8 % (3-14); Neutrophils Absolute Auto 8500 /uL (1500-7000); Platelet Count 151 X10^3/uL (150-400); Red Blood Cell Count 2.39 X10^6/uL (4.5-5.9); Red Cell Distribution Width 15.3 % (11.6-14.8); White Blood Cell Count 10.4 X10^3/uL (4.5-11.0)
[2022-05-30 05:19] LABS: Alanine Aminotransferase 18 IU/L (<50); Albumin 3.3 g/dL (3.5-5.0); Albumin Globulin Ratio 1.1 (1.0-2.8); Alkaline Phosphatase 105 U/L (38-126); Aspartate Aminotransferase 22 IU/L (17-59); BUN Creatinine Ratio 25.6 (6-22); Bilirubin Total 0.8 mg/dL (0.2-1.3); Blood Urea Nitrogen 55 mg/dL (9-20); Calcium 9.5 mg/dL (8.4-10.2); Carbon Dioxide 22 mmol/L (22-32); Chloride 97 mmol/L (98-107); Estimated Glomerular Filt Rate 29 mL/min (>60); Globulin 2.9 g/dL (1.7-4.1); Glucose 98 mg/dL (80-110); HEMOLYSIS < 15 (0-50); Magnesium 1.9 mg/dL (1.6-2.3); Potassium 4.1 mmol/L (3.4-5.1); Sodium 131 mmol/L (137-145); Total Protein 6.2 g/dL (6.3-8.2)
[2022-05-30] MEDS: THYROID, PORK 30 MG TABLET 60 MG PO (05:47)
--- NOTE | 2022-05-30 07:28 | PM.PNPO.1 ---
Subjective Subjective Date Patient Seen: 05/30/22 Time Patient Seen: 07:29 Interval history: The patient reports good pain control overnight. Exam Vital Signs (past 8 hours): - 05/29/22 23:30 05/29/22 23:30 05/30/22 00:00 Temperature Pulse Rate 82 Respiratory Rate Blood Pressure 94/51 L 98/54 L Pulse Oximetry 94 Oxygen Flow Rate 05/30/22 00:00 05/30/22 00:30 05/30/22 01:00 Temperature 99.4 F Pulse Rate 82 82 Respiratory Rate 19 Blood Pressure 91/51 L Pulse Oximetry 95 96 Oxygen Flow Rate 4 05/30/22 01:00 05/30/22 02:00 05/30/22 02:00 Temperature Pulse Rate 82 83 Respiratory Rate Blood Pressure 84/49 L Pulse Oximetry 94 96 Oxygen Flow Rate 05/30/22 02:41 05/30/22 02:41 05/30/22 03:00 Temperature Pulse Rate 81 81 Respiratory Rate Blood Pressure 94/67 Pulse Oximetry 96 95 Oxygen Flow Rate 05/30/22 03:01 05/30/22 03:01 05/30/22 04:00 Temperature Pulse Rate 82 Respiratory Rate Blood Pressure 86/51 L 92/50 L Pulse Oximetry 95 Oxygen Flow Rate 05/30/22 04:00 05/30/22 05:00 05/30/22 05:00 Temperature 98.8 F Pulse Rate 83 80 Respiratory Rate 19 Blood Pressure 85/50 L Pulse Oximetry 97 96 Oxygen Flow Rate 2 05/30/22 06:00 05/30/22 06:00 Temperature Pulse Rate 80 Respiratory Rate Blood Pressure 97/51 L Pulse Oximetry 94 Oxygen Flow Rate Oxygen Delivery Method Nasal Cannula Oxygen Flow Rate 2 Narrative Exam Narrative: Right hip wound is dressed with no significant drainage on the bandage. There is no pain of the right hip with gentle log roll. Calf is soft. Light touch and motion are intact in the right foot. Leg length and rotation appear appropriate. Objective Labs Result Diagrams: 05/30/22 04:17 05/30/22 04:17 Labs: Laboratory Results - last 24 hr 05/30/22 05/30/22 04:17 04:17 WBC 10.4 RBC 2.39 L Hgb 8.4 L Hct 24.8 L MCV 103.8 H MCH 34.9 H MCHC 33.6 RDW 15.3 H Plt Count 151 Neut % (Auto) 81.0 H Lymph % (Auto) 5.3 L [place] % (Auto) 12.8 Eos % (Auto) 0.7 L Baso % (Auto) 0.2 Neut # (Auto) 8500 H Lymph # (Auto) 600 L [place] # (Auto) 1300 H Eos # (Auto) 100 Baso # (Auto) 0 Sodium 131 L Potassium 4.1 Chloride 97 L Carbon Dioxide 22 BUN 55 H Creatinine 2.15 H Estimated GFR 29 L BUN/Creatinine Ratio 25.6 H Glucose 98 Calcium 9.5 Magnesium 1.9 Total Bilirubin 0.8 AST 22 ALT 18 Alkaline Phosphatase 105 Total Protein 6.2 L Albumin 3.3 L Globulin 2.9 Albumin/Globulin Ratio 1.1 PFSH Medical History Allergies Aneurysm of right popliteal artery Atrial fibrillation (~2014) BPH (benign prostatic hyperplasia) BPH w urinary obs/LUTS CAD (coronary artery disease), [place] coronary artery Chicken pox Chronic systolic CHF (congestive heart failure), NYHA class 1 Congestive heart failure Coronary heart disease Elevated PSA (~2004) Essential (primary) hypertension Foot pain Ganglion cyst Gout Gout Hearing loss Heart attack Hypertension Low testosterone (~2008) Measles Mixed hyperlipidemia Mumps Osteoporosis Peripheral neuropathy Shoulder pain 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 Wears glasses Surgical History Anesthesia History of back surgery (~2009) History of circumcision 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) History of prostate biopsy History of surgery (~1998) Family History Father Prostate cancer Coronary artery disease Mother Cancer Stroke Social History marital status: number of children: 3 household members: spouse occupational status: previously employed Smoking Status: Never smoker alcohol intake: current substance use type: does not use caffeine: Yes Assessment & Plan Post-op Postoperative Procedures: Procedures Operation Date: 05/29/22 15:30 Actual Procedure Side Surgeon p Hip Hemiarthroplasty Right Chinmay Lobo MD Postoperative day: 1 Postoperative status: doing well and anemia Postoperative status narrative: Patient is stable postoperative day 1 status post right hip hemiarthroplasty for displaced femoral neck fracture. He does have a post hemorrhagic anemia superimposed on a pre operative anemia. Postoperative plan: routine post-op care and ambulate Postoperative plan narrative: He can start physical therapy today provided his medical care team feels he is stable. With respect to the anemia we will monitor this. Depending on his progress with physical therapy he will be discharged either to home or to a [place] [facility] facility in a couple of days.
[2022-05-30] MEDS: FUROSEMIDE 40 MG/4 ML VIAL IV (09:06)
[2022-05-30] MEDS: FERROUS SULFATE 325 MG TABLET PO (09:06)
[2022-05-30] MEDS: DOCUSATE 100 MG CAPSULE PO ×2 (09:06→20:04)
[2022-05-30] MEDS: SODIUM CHLORIDE 0.9% FLUSH 10 ML IV ×2 (09:07→20:07)
--- NOTE | 2022-05-30 11:15 | PT.IIE ---
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) History of prostate biopsy History of surgery (~1998) Medical History (Last Reviewed 05/28/22 @ 18:06 by Chinmay Lobo MD) Allergies Aneurysm of right popliteal artery Atrial fibrillation (~2014) BPH (benign prostatic hyperplasia) BPH w urinary obs/LUTS CAD (coronary artery disease), [place] coronary artery Chicken pox Chronic systolic CHF (congestive heart failure), NYHA class 1 Congestive heart failure Coronary heart disease Elevated PSA (~2004) Essential (primary) hypertension Foot pain Ganglion cyst Gout Gout Hearing loss Heart attack Hypertension Low testosterone (~2008) Measles Mixed hyperlipidemia Mumps Osteoporosis Peripheral neuropathy Shoulder pain 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 no steps to enter Home Environment Standard Height Toilet,Walk in Shower Home Equipment Front Wheel Walker,Shower Seat with Backrest,Hand Held Shower,Grab Bars Near Toilet, Grab Bars In Shower Additional Social History Comment pt has a tripod cane pt stated that spouse is limited to the assistance she can provide the pt M2 PT-IP Current Condition Start: 05/30/22 12:58 Freq: NEEDED Status: Active Protocol: Document 05/30/22 11:15 AB (Rec: 05/30/22 13:09 AB [id number]) Physical Therapy Current Condition Current Condition Evaluation Date 05/30/22 Treatment Diagnosis R femoral neck fx s/p R hip hemiarthroplasty; difficulty in walking Onset Date 05/28/22 M3 PT-IP Subjective Start: 05/30/22 12:58 Freq: NEEDED Status: Active Protocol: Document 05/30/22 11:15 AB (Rec: 05/30/22 13:09 AB [email or web address]) Subjective Physical Therapy Visit Type Type Initial Evaluation Visit Start Time 11:15 Visit Stop Time 12:05 Total Visit Minutes 50 Number of TOP POLISHER Visits 0 Physical Therapy Visit Comments Patient Comments agreeable to do PT Therapy Pain Assessment Pain When Pain Assessed During Mobility Location Right Hip Scale Used pain scale not stated Pain Management Techniques Apply Cold,Modification of Treatment,Re-positioning, Timing of Activity with Medications M4 PT-IP Mobility and Gait Start: 05/30/22 12:58 Freq: NEEDED Status: Active Protocol: Document 05/30/22 11:15 AB (Rec: 05/30/22 13:09 [email or web address]) PT-Bed Mobility Assessment Supine to Sit Supine to Sit Maximum Assistance,1 Person Assistance,2 Person Assistance ,Head of Bed Elevated,Bedrails Scooting Scooting to Edge of Bed Dependent PT-Transfer Assessment Sit to and From Stand Sit to and from Stand Maximum Assistance,2 Person Assistance,Use of Upper Extremities Equipment Transfer Assistive Device Gait Belt,Front Wheeled Walker Orthotic/Prosthetic Devices or Brace: No Transfers Transfer Destination Chair Transfer Technique Stand Step Pivot Transfer Ability Level of Assist Maximum Assistance,2 Person Assistance,Use of Upper Extremities Comments Mobility Comments educated pt on posterior hip precautions. BP: 92/51 completed supine to sit max A x 1-2 and max cues with HOB elevated. pt requiring mod to max A for sitting balance on EOB with increase posterior trunk lean. total A for scooting to EOB. completed sit to stand max A x 2 and max cues requiring 4 attempt to get up. pt with difficulty with following directions. completed step transfer to chair using FWW max A x 2 and max cues. positioned pt on the chair. BP checked: 63/37. nurse came in. rechecked BP: 70/40. nurse changed pt's BP cuff. and checked BP after pt resting for a few minutes. BP: 115/56. call light and table placed within reach. spouse in room with pt. informed pt and spouse regarding SNF recomendation and agreed. high risk case manager informed. PT-Balance Assessment Sitting Balance and Reactions Static Sitting Balance Ability Poor Dynamic Sitting Balance Ability Poor Standing Balance and Reactions Static Standing Balance Ability Poor Dynamic Standing Balance Ability Poor Device Used FWW M5 PT-IP Objective Assessments Start: 05/30/22 12:58 Freq: NEEDED Status: Active Protocol: Document 05/30/22 11:15 AB (Rec: 05/30/22 13:09 AB [id number]) Orientation Orientation/Cognition Level of Alertness Confusional State Orientation Name Language Function Ability Hard of Hearing Memory Description Short Term Impaired Gross Range of Motion Lower Extremity ROM Assessment Within Functional Limits Strength Lower Extremity Strength Assessment Right Impaired Hip 3+/5 Knee 4-/5 Sensation Assessment Sensation Gross Sensation WNL Muscle Tone Muscle Tone WNL Yes M6 PT-IP Treatment Start: 05/30/22 12:58 Freq: NEEDED Status: Active Protocol: Document 05/30/22 11:15 AB (Rec: 05/30/22 13:09 AB [email or web address]) Physical Therapy Treatment Education Education Provided Precautions,Weight Bearing Status,Post-Op Packet,Safety M7 PT-IP Assessment and Plan Start: 05/30/22 12:58 Freq: NEEDED Status: Active Protocol: Document 05/30/22 11:15 AB (Rec: 05/30/22 13:09 AB [email or web address]) PT Summary Assessment and Plan Potential Rehabilitation Potential Fair Status of Condition at Evaluation Evolving Summary Impairments Pain,ROM,Strength,Balance, Coordination,Sensation,Tone, Cognition,Bed Mobility, Transfers,Gait,Activity Tolerance Assessment Summary pt requiring max A to total A x 1-2 with mobility and will require SNF rehab at this time to improve strength and mobility independence. will continue to assess progress. Goals Bed Mobility Goal Minimal Assistance Transfer Goal Minimal Assistance,Front Wheeled Walker Gait Goal Minimal Assistance,Front Wheel Walker Gait Distance 50 Other Goals improve bed mobility, transfers using fWW and ambulation using FWW 100 ft SBA Days to Meet Goals 10 Frequency of Treatment Frequency Of Treatment Twice a Day Treatment Plan Physical Therapy Treatment Plan Bed Mobility Training,Transfer Training,Gait Training, Therapeutic Exercise,Balance Retraining,Post Op Education, Discharge Planning,Hot or Cold Pack,Neuromuscular Re-ed, Coordination Retraining,Manual Therapy Precautions Posterior Hip Precautions No Hip Flexion > 90 degrees,No Hip Internal Rotation,No Hip Adduction Weight Bearing Status Weight Bearing Status Weight Bear as Tolerated Allowed Weight Bearing Amount (enter % RLE WBAT or #) (%) Recommendations To Nursing Amount of Assist Needed 2 Person Assist Discharge Recommendations PT Discharge Recommendations SNF Rehab Transportation Needs at Discharge Wheelchair/Cabulance
--- NOTE | 2022-05-30 13:17 | CM.DPC ---
Addendum entered by SANDRA Edmonds 05/30/22 14:08: ADD: Return call from [facility] stating they can accept and initiate insurance auth tonight and might be able to accept tomorrow if auth obtained but they already have a couple admissions tomorrow but could work on having admission staff to accept Sat. [facility] confirms they are getting full and may not be able to accept for a few days anyways. JULIAN met bedside with pt, spouse, support person and OT and updated on [facility] acceptance and they are agreeable to [facility] initiating insurance auth. SW called Karma back at [facility] and she will initiate auth tonight. SW updated RN. BF Original Note: DCP SNF Planning Per Ortho MD, pt tolerated hip surgery last night well and to work with PT today. Per MD, pt making progress and to be placed back on home meds when appropriate. Per PT, recommending SNF as pt currently 2PA and spouse cannot provide much physical assist. Request OT orders, and pt will need OT eval for SNF insurance auth so orders placed. SW met bedside with pt, spouse, and 2 adult support people and explained role and they confirm that SNF likely needed at d/c unless pt makes significant progress before d/c. SW provided Ipad and SNF Choice list and pt has AARP MCR and SW discussed need for contracted SNF and insurance auth. SW talked at length regarding SNF rehab and HH services and discussed need for at least a backup plan and need to initiate SNF now as insurance auth needed prior to the weekend as pt likely would be ready for d/c in the next 1-2 days and they acknowledge understanding and preference is referrals to [facility], [facility], [facility] and spouse does NOT want [facility]. Pt alert and oriented and participated in discussion as well and in agreement. SW called [facility] and made new referral and faxed to [facility] and [facility] alerting them that pt may be stable for d/c in 1-2 days and will need insurance auth. PASRR completed. Plan: SW to follow closely for [facility], [facility], and [facility] review towards determining which can accept and then initiate insurance auth for SNF. SW to keep family and pt updated on SNF reviews. SANDRA Edmonds
--- NOTE | 2022-05-30 13:35 | OT.IP.EVAL ---
Current Diagnoses Stress fracture, hip, unspecified, initial encounter for fracture (05/28/22) Surgery Performed Operation Date: 05/29/22 15:30 Actual Procedures p Hip Hemiarthroplasty(Right) - Chinmay Lobo MD Past Medical History (Last Reviewed 05/28/22 @ 18:06 by Chinmay Lobo MD) Allergies Aneurysm of right popliteal artery Atrial fibrillation (~2014) BPH (benign prostatic hyperplasia) BPH w urinary obs/LUTS CAD (coronary artery disease), [place] coronary artery Chicken pox Chronic systolic CHF (congestive heart failure), NYHA class 1 Congestive heart failure Coronary heart disease Elevated PSA (~2004) Essential (primary) hypertension Foot pain Ganglion cyst Gout Gout Hearing loss Heart attack Hypertension Low testosterone (~2008) Measles Mixed hyperlipidemia Mumps Osteoporosis Peripheral neuropathy Shoulder pain 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 Wears glasses Surgical History (Last Reviewed 05/28/22 @ 18:06 by Chinmay Lobo MD) Anesthesia History of back surgery (~2009) History of circumcision 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) History of prostate biopsy History of surgery (~1998) Occupational Therapy Inpatient Evaluation/Re-Eval M1 PT/OT-IP Prior Functional Status Start: 05/30/22 12:58 Freq: NEEDED Status: Active Protocol: Document 05/30/22 14:15 [facility] (Rec: 05/30/22 15:48 [facility] [id number]) Medical Review Prior Functional Status Medical History Reviewed Yes Communication able to make needs known Mobility and Gait pt stated that he is independent with all mobilities and ambulation without AD Activities of Daily Living and IADL's Pt states was able to do all his ADL's and shared doing IADL needs with his . Social History Household Members spouse Living Arrangements House Number of Floors (Floors) One Floor Number of Stairs To Enter/Railing? no steps to enter Home Environment Standard Height Toilet,Walk in Shower Home Equipment Front Wheel Walker,Shower Seat with Backrest,Hand Held Shower,Grab Bars Near Toilet, Grab Bars In Shower Additional Social History Comment pt has a tripod cane pt stated that spouse is limited to the assistance she can provide the pt M2 OT-IP Current Condition Start: 05/30/22 14:21 Freq: Status: Active Protocol: Document 05/30/22 14:15 [facility] (Rec: 05/30/22 15:48 [facility] [id number]) Occupational Therapy Current Condition Current Condition Evaluation Date 05/30/22 Treatment Diagnosis S/p Right femoral neck fracture Post Operative Precautions Posterior Hip Precautions No Hip Flexion > 90 degrees,No Hip Internal Rotation,No Hip Adduction M3 OT- IP Subjective and Pain Start: 05/30/22 14:21 Freq: Status: Active Protocol: Document 05/30/22 14:15 [facility] (Rec: 05/30/22 15:48 [facility] [id number]) OT- Subjective Occupational Therapy Visit Type Type Initial Evaluation Visit Start Time 13:35 Visit Stop Time 14:15 Total Visit Minutes 40 Occupational Therapy Visit Comments Patient Comments Pt agreed to get up. HEAVY EQUIPMENT PLUMBING SUPERVISOR and nurse present to assist. Patient/Caregiver Goals To go to rehab, get better and go home. OT Pain Assessment Pain When Pain Assessed During Mobility Pain Present Pain Present Pain Reported Location Right Hip Intensity 6 Scale Used Numeric (0 - 10) M4 OT- IP ADL's Start: 05/30/22 14:21 Freq: Status: Active Protocol: Document 05/30/22 14:15 [facility] (Rec: 05/30/22 15:48 [facility] [id number]) OT [id number] Comments OT Self-Feeding Comments Not at meal time. OT ADL-Grooming Comments OT Grooming Comments Pt able to do while sitting in the recliner. OT ADL-Oral Care General Eval Oral Care Ability Standby Assistance Areas of Assistance Retrieving/Set-Up of Items Comments Oral Care Comments Able to do while seated in the recliner. OT ADL-Dressing General Eval Lower Body Dressing Ability Total Assistance OT ADL-Toileting General Evaluation Toileting Ability Total Assistance Comments OT Toileting Comments [place] in place. OT ADL-Bathing Comments OT Bathing Comments sponge bath more appropriate at this time M5 OT- IP IADL's Start: 05/30/22 14:21 Freq: Status: Active Protocol: Document 05/30/22 14:15 [facility] (Rec: 05/30/22 15:48 [facility] [id number]) OT-Instrumental Activities of Daily Living Medication Management Medication Management Comments Pt states able to do on his own prior. Money Management Money Management Comments Pt able to do prior. Meal Preparation Meal Preparation Caregiver Provides Assist Dowel Sander Operator Dowel Sander Operator Caregiver Provides Assist M6 OT- IP Functional Cognition Start: 05/30/22 14:21 Freq: Status: Active Protocol: Document 05/30/22 14:15 [facility] (Rec: 05/30/22 15:48 [facility] [id number]) Cognitive Factors Limiting Selfcare Function Cognitive Ability Level of Alertness Alert Patient Orientation Name,Place,Situation Attention Span Ability Capable of Focused Attention, Capable of Sustained Attention Ability to Follow Commands Able to Follow One Step Commands Cognitive Comments Cognitive Assessment Comments Pt able to follow commands for ADL and IADL needs. OT- Vision and Hearing OT- Hearing Assessment OT- Hearing Assessment WFL OT- Vision Assessment Visual Acuity Glasses For Reading M7 OT- IP Mobility and Balance Start: 05/30/22 14:21 Freq: Status: Active Protocol: Document 05/30/22 14:15 [facility] (Rec: 05/30/22 15:48 [facility] [id number]) OT- Bed Mobility Assessment Scooting Scooting to Edge of Bed Maximum Assistance,2 Person Assistance OT-Transfer Assessment Sit to and From Stand Sit to and from Stand Maximum Assistance,1 Person Assistance,2 Person Assistance Comments Mobility Comments Pt needing MAX A x2-3 to stand to FWW at this time. Pt needing cues to push down on the FWW with his hands on the FWW so able to try toget weight off his RLE. Pt needing MAX AX 1 to ease down to the recliner. OT- Balance Assessment Sitting Balance and Reactions Static Sitting Balance Ability Fair Standing Balance and Reactions Static Standing Balance Ability Poor Dynamic Standing Balance Ability Poor M8 OT- IP Objective Assessments Start: 05/30/22 14:21 Freq: Status: Active Protocol: Document 05/30/22 14:15 [facility] (Rec: 05/30/22 15:48 [facility] [id number]) OT Gross Range of Motion Upper Extremity Range of Motion Assessment Left Impaired OT Strength Upper Extremity Strength Assessment Left Impaired Comments Strength Comments Limited AROM and strength in LUE due to rotator cuff injury per his . OT-Muscle Tone Assessment Muscle Tone WNL Yes M9 OT- IP Assessment and Plan Start: 05/30/22 14:21 Freq: Status: Active Protocol: Document 05/30/22 14:15 [facility] (Rec: 05/30/22 15:48 [facility] [id number]) OT Summary Assessment and Plan Potential Rehabilitation Potential Good Analytic Complexity at Evaluation Moderate Summary OT Impairments Pain,Balance,Functional Mobility,Grooming,Dressing, Toileting,Bathing,Toilet Transfers,Shower Transfers, Activity Tolerance Progress Towards Goals Progressing Toward Goals Assessment Summary Pt MOD complexity and main barriers are pain, decreased strength, endurance, and now needing 2-3 person assist for ADl and mobility needs. Pt will greatly benefit from skilled rehab prior to going home. Goals Self-Feeding Goal Independent Grooming Goal Independent Dressing Goal Minimal Assistance Toileting Goal Independent Bathing Goal Minimal Assistance Toilet Transfer Goal Independent Shower Transfer Goal Contact Guard Assistance Days to Meet Goals 40 Frequency of Treatment Frequency Of Treatment Once a Day Treatment Plan OT Treatment Plan ADL Training,Functional Cognition Training,Functional Mobility,Patient/Family Education,Discharge Planning Other Treatment Recommendations and Next practice LB dressing equipment Treatment Focus Discharge Recommendations OT Discharge Recommendations SNF Rehab Transportation Needs at Discharge Wheelchair/Cabulance
[2022-05-30] MEDS: OXYCODONE IR 5 MG TABLET PO ×2 (13:53→18:33)
--- NOTE | 2022-05-30 14:05 | PT.IPTN ---
Current Diagnoses Stress fracture, hip, unspecified, initial encounter for fracture (05/28/22) Surgery Performed Operation Date: 05/29/22 15:30 Actual Procedures p Hip Hemiarthroplasty(Right) - Chinmay Lobo MD Physical Therapy Treatment Note M2 PT-IP Current Condition Start: 05/30/22 12:58 Freq: NEEDED Status: Active Protocol: Document 05/30/22 11:15 AB (Rec: 05/30/22 13:09 AB [id number]) Physical Therapy Current Condition Current Condition Evaluation Date 05/30/22 Treatment Diagnosis R femoral neck fx s/p R hip hemiarthroplasty; difficulty in walking Onset Date 05/28/22 M3 PT-IP Subjective Start: 05/30/22 12:58 Freq: NEEDED Status: Active Protocol: Document 05/30/22 13:35 [place] (Rec: 05/30/22 14:45 KS [id number]) Subjective Physical Therapy Visit Type Type Treatment Note Visit Start Time 13:35 Visit Stop Time 14:05 Total Visit Minutes 30 Notes Family present Co-treat w/ OT, RN present for additional assitance Number of PER ASSESSMENT NURSE Visits 1 Physical Therapy Visit Comments Patient Comments agreeable to do PT Therapy Pain Assessment Pain When Pain Assessed During Mobility Pain Present Pain Present Pain Reported Location Right Hip Intensity 6 Scale Used Numeric (0 - 10) Description With Movement Pain Behaviors Facial Grimacing,Guarding, Wincing Pain Management Techniques Distraction,Modification of Treatment,Re-positioning M4 PT-IP Mobility and Gait Start: 05/30/22 12:58 Freq: NEEDED Status: Active Protocol: Document 05/30/22 13:35 [place] (Rec: 05/30/22 14:45 KS [id number]) PT-Transfer Assessment Sit to and From Stand Sit to and from Stand Maximum Assistance,2 Person Assistance,Use of Upper Extremities Equipment Transfer Assistive Device Gait Belt,Front Wheeled Walker Orthotic/Prosthetic Devices or Brace: No Transfers Transfer Destination Chair Transfer Technique Sit<>Stand Transfer Ability Level of Assist Maximum Assistance,2 Person Assistance,Use of Upper Extremities Comments Mobility Comments Pt in chair and family in room upon arrival from therapy. Pt reporting 0/10 pain at rest, but increases to 6/10 w/ mobility and weight bearing. Reveiwed precautions, pt able to recall. Required Max A for scooting to EOC, Max A x2 and cues for sit<>stand w/ FWW. Upon standing, pt had some difficulty maintaining balance and required Mod A due to posterior lean despite verbal and tactile cues. He was able to perform minimal weight shifting, followed by marching in place but became fatigued quickly and had difficulty elevating LE from floor. Max A x2 and cues for hand placement and sequencing for slow descent into chair and scooting back in chair. Reveiwed and performed ankle pumps, LAQs, and glute sets. Pt left in chair w/ OT in room . Gait Assessment Comments Gait Comments Unable at this time PT-Balance Assessment Sitting Balance and Reactions Static Sitting Balance Ability Fair Dynamic Sitting Balance Ability Fair Standing Balance and Reactions Static Standing Balance Ability Poor Dynamic Standing Balance Ability Poor Device Used FWW M5 PT-IP Objective Assessments Start: 05/30/22 12:58 Freq: NEEDED Status: Active Protocol: Document 05/30/22 11:15 AB (Rec: 05/30/22 13:09 AB [id number]) Orientation Orientation/Cognition Level of Alertness Confusional State Orientation Name Language Function Ability Hard of Hearing Memory Description Short Term Impaired Gross Range of Motion Lower Extremity ROM Assessment Within Functional Limits Strength Lower Extremity Strength Assessment Right Impaired Hip 3+/5 Knee 4-/5 Sensation Assessment Sensation Gross Sensation WNL Muscle Tone Muscle Tone WNL Yes M6 PT-IP Treatment Start: 05/30/22 12:58 Freq: NEEDED Status: Active Protocol: Document 05/30/22 13:35 [place] (Rec: 05/30/22 14:45 [place] [id number]) Physical Therapy Treatment Exercises Exercises Ankle Pumps,Gluteal Sets,Quad Sets Education Education Provided Precautions,Weight Bearing Status,Post-Op Packet,Safety M7 PT-IP Assessment and Plan Start: 05/30/22 12:58 Freq: NEEDED Status: Active Protocol: Document 05/30/22 13:35 [place] (Rec: 05/30/22 14:45 KS [id number]) PT Summary Assessment and Plan Potential Rehabilitation Potential Fair Summary Impairments Pain,ROM,Strength,Balance, Coordination,Sensation,Tone, Cognition,Bed Mobility, Transfers,Gait,Activity Tolerance Progress Towards Goals Slow Progress due to Pain,Slow Progress due to Activity Tolerance Assessment Summary Pt continues to require max A x2 for scooting and sit<>stand w/ FWW however had some improve tolerance for weight bearing and activity this PM. Able to weight shift and perform minimal marching in place w/ Mod A to maintain standing balance. Good effort, but quick approach to fatigue . He is a high fall risk and far from baseline and will require SNF to improve strength and functional mobility independence. Goals Bed Mobility Goal Minimal Assistance Transfer Goal Minimal Assistance,Front Wheeled Walker Gait Goal Minimal Assistance,Front Wheel Walker Gait Distance 50 Other Goals improve bed mobility, transfers using fWW and ambulation using FWW 100 ft SBA Days to Meet Goals 10 Frequency of Treatment Frequency Of Treatment Twice a Day Treatment Plan Physical Therapy Treatment Plan Bed Mobility Training,Transfer Training,Gait Training, Therapeutic Exercise,Balance Retraining,Post Op Education, Discharge Planning,Hot or Cold Pack,Neuromuscular Re-ed, Coordination Retraining,Manual Therapy Precautions Posterior Hip Precautions No Hip Flexion > 90 degrees,No Hip Internal Rotation,No Hip Adduction Weight Bearing Status Weight Bearing Status Weight Bear as Tolerated Allowed Weight Bearing Amount (enter % RLE WBAT or #) (%) Recommendations To Nursing Amount of Assist Needed 2 Person Assist Discharge Recommendations PT Discharge Recommendations SNF Rehab Transportation Needs at Discharge Wheelchair/Cabulance
--- NOTE | 2022-05-30 14:44 | PM.PN.1 ---
Subjective Subjective Date Patient Seen: 05/30/22 Interval history: Pain is controlled at rest, had quite a bit of discomfort with therapy this morning when attempting to get up. Denies chest pain or shortness of breath, he is on a few L of O2 today after surgery. Exam Vital Signs (past 8 hours): - 05/30/22 07:00 05/30/22 07:00 05/30/22 07:04 Pulse Rate 80 Blood Pressure 87/48 L 90/52 L Pulse Oximetry 95 Oxygen Delivery Method Oxygen Flow Rate 05/30/22 07:04 05/30/22 09:06 05/30/22 08:20 Pulse Rate 80 80 Blood Pressure 95/54 L Pulse Oximetry 92 98 Oxygen Delivery Method Nasal Cannula Oxygen Flow Rate 2 05/30/22 09:40 05/30/22 08:00 05/30/22 08:00 Pulse Rate 80 Blood Pressure 93/54 L Pulse Oximetry 98 Oxygen Delivery Method Nasal Cannula Oxygen Flow Rate 05/30/22 09:00 05/30/22 09:00 05/30/22 09:01 Pulse Rate 82 Blood Pressure 85/52 L 95/54 L Pulse Oximetry 95 Oxygen Delivery Method Oxygen Flow Rate 05/30/22 09:01 05/30/22 10:00 05/30/22 10:00 Pulse Rate 80 80 Blood Pressure 98/54 L Pulse Oximetry 94 97 Oxygen Delivery Method Oxygen Flow Rate 05/30/22 11:05 05/30/22 11:00 05/30/22 11:00 Pulse Rate 80 80 Blood Pressure 93/50 L 87/53 L Pulse Oximetry 100 Oxygen Delivery Method Oxygen Flow Rate 05/30/22 11:02 05/30/22 11:02 05/30/22 11:04 Pulse Rate 79 80 Blood Pressure 85/51 L Pulse Oximetry 99 99 Oxygen Delivery Method Oxygen Flow Rate 05/30/22 11:04 05/30/22 11:35 05/30/22 11:56 Pulse Rate Blood Pressure 93/50 L 92/51 L 70/40 L Pulse Oximetry Oxygen Delivery Method Oxygen Flow Rate 05/30/22 11:59 05/30/22 12:00 Pulse Rate Blood Pressure 115/56 L 122/57 L Pulse Oximetry Oxygen Delivery Method Oxygen Flow Rate Oxygen Delivery Method Nasal Cannula Oxygen Flow Rate 2 Narrative Exam Narrative: General:? Patient is well developed and well nourished, in no distress at this time. HEENT:? Normocephalic, atraumatic, extraocular muscles intact, oral pharynx is clear and mucous membranes are moist. Neck: supple and symmetric, trachea is midline, no cervical adenopathy. Negative for JVD Chest:? Normal AP diameter and contour without kyphoscoliosis, no tachypnea, equal chest rise bilaterally. Lungs: CTA b/l without wheezes, rhonchi, or rales. Cardio:?RRR no m/r/g. Abdomen: S NT ND. Musculoskeletal:? Muscle strength and tone are equal within normal limits Extremities: No edema or joint effusions. No cyanosis or clubbing. Skin:? Pale,? Warm to touch,dry and intact without rashes, ulcerations or petechiae.? Neuro:? Alert and orientated x3,? sensation to touch intact in all extremities, no gross deficits noted of cranial nerves. Psych:? Patient has a well-kept appearance, appropriate affect, mental status attitude thought context and judgment are appropriate for age. Objective Labs Result Diagrams: 05/30/22 04:17 05/30/22 04:17 Labs: Laboratory Results - last 24 hr 05/30/22 05/30/22 04:17 04:17 WBC 10.4 RBC 2.39 L Hgb 8.4 L Hct 24.8 L MCV 103.8 H MCH 34.9 H MCHC 33.6 RDW 15.3 H Plt Count 151 Neut % (Auto) 81.0 H Lymph % (Auto) 5.3 L [place] % (Auto) 12.8 Eos % (Auto) 0.7 L Baso % (Auto) 0.2 Neut # (Auto) 8500 H Lymph # (Auto) 600 L [place] # (Auto) 1300 H Eos # (Auto) 100 Baso # (Auto) 0 Sodium 131 L Potassium 4.1 Chloride 97 L Carbon Dioxide 22 BUN 55 H Creatinine 2.15 H Estimated GFR 29 L BUN/Creatinine Ratio 25.6 H Glucose 98 Calcium 9.5 Magnesium 1.9 Total Bilirubin 0.8 AST 22 ALT 18 Alkaline Phosphatase 105 Total Protein 6.2 L Albumin 3.3 L Globulin 2.9 Albumin/Globulin Ratio 1.1 [facility] Medical History Allergies Aneurysm of right popliteal artery Atrial fibrillation (~2014) BPH (benign prostatic hyperplasia) BPH w urinary obs/LUTS CAD (coronary artery disease), [place] coronary artery Chicken pox Chronic systolic CHF (congestive heart failure), NYHA class 1 Congestive heart failure Coronary heart disease Elevated PSA (~2004) Essential (primary) hypertension Foot pain Ganglion cyst Gout Gout Hearing loss Heart attack Hypertension Low testosterone (~2008) Measles Mixed hyperlipidemia Mumps Osteoporosis Peripheral neuropathy Shoulder pain 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 Wears glasses Surgical History Anesthesia History of back surgery (~2009) History of circumcision 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) History of prostate biopsy History of surgery (~1998) Family History Father Prostate cancer Coronary artery disease Mother Cancer Stroke Social History marital status: number of children: 3 household members: spouse occupational status: previously employed Smoking Status: Never smoker alcohol intake: current substance use type: does not use caffeine: Yes Assessment & Plan Assessment & Plan narrative: 86-year-old male history of diastolic/systolic congestive heart failure EF of 30-35%, CAD w/ CABG, afib with chronic AC, PAD with lower extremity bypass, CKD stage III, hypertension, hyperlipidemia, gout, NIDDM, BPH admitted with a R femoral neck fracture. 1. Comminuted and displaced R refemoral neck fracture, acute, present on admission - management per orthopedic surger - will check post op troponin today, no current cardiac symptoms. 2. Acute on chronic combined systolic and diastolic heart failure, present on admission with acute respiratory failure with hypoxia. - likely mild volume overload on admission improved with light diuresis, he did desaturate to the mid 80s on room air on the hospital floor. Also possible pain medications / opiates are contributing to respiratory failure as well. - continue furosemide IV 40 mg daily. - flores placed for accurate intake and output given acute chf and in the setting of femoral fracture / lack of mobility. - last TTE 08/2021 with EF 30-35%. 3. Myocardial injury - continued to follow troponins until downtrending -TTE at this time will not change acute management. - unlikely ACS as discussed above. 4. CAD s/p CABG - continue home medications. 5. CKD stage III - appears to be near baseline creatinine, will continue to monitor and dose medications appropriately. Slight bump today likely in setting of hypotension from anesthesia. 6. HTN - continue home medications, hold cheli inhibition prior to surgery. Resume after. 7. HLD - continue home statin 8. NIDDM - NANCI, if elevated sugars will start basal therapy. 9. BPH - continue home medications. Code: Full, surrogate is patient's DVT: SCDs. hold chemical ppx prior to surgical interventions, normally on full dose AC Dispo: admit as inpatient, suspect he will need SNF based on significant chronic disease after operative interventions though patient would like to avoid if at all possible. Depends on progress with PT/OT. I have utilized all available immediate resources to obtain, update, or review the patient's current medications. COVID-19 COVID-19 status: Negative Time Spent With Patient Critical Care time: I spent a total of [] minutes of critical care time on this patient's care today; this time is exclusive of procedural time.
--- NOTE | 2022-05-30 15:55 | PC.NURSE ---
Addendum entered by Alea Byers R.N. 05/30/22 17:37: I agree with all of Donna's assessments and interventions-Alea Byers RN Original Note: Day shift note - Patient awake and using incentive spirometer at start of shift. Re-educated patient on use. Up with physical therapy and in chair for lunch. Family at bedside. Plan is to discharge to SNF for rehab and patient and family agreeable. Back to bed via karen lift. 95% on 1L NC. Urinary output 200 mL @1600, notified provider. Son at bedside. Patient able to make needs known, able to use call light, call light within reach. Bed alarm set. Will continue to monitor.
[2022-05-30] MEDS: INSULIN LISPRO 100 UNIT/ML 3ML VIAL SUBCUT (17:47)
[2022-05-30] MEDS: HYDROMORPHONE 0.5 MG INJ 0.2 MG IV ×2 (18:58→20:06)
[2022-05-30 19:12] LABS: Troponin I 0.047 ng/mL (0.01-0.034)
[2022-05-30] MEDS: carvediloL 3.125 MG TABLET 6.25 MG PO (20:04)
[2022-05-30] MEDS: SENNOSIDES 8.6 MG TABLET 17.2 MG PO (20:05)
[2022-05-30] MEDS: diazePAM 2 MG TABLET PO (20:05)
[2022-05-30] MEDS: FINASTERIDE 5 MG TABLET 2.5 MG PO (20:05)
[2022-05-31] VITALS (8 sets, daily range): BP systolic 105–116; BP diastolic 54–59; PULSE 80–88; RESP 16–20; TEMP 36.6–37; O2SAT 96–99
[2022-05-31 05:02] LABS: Add Manual Diff / Slide Review NO; Basophils Absolute Auto 0 /uL (0-100); Basophils Percent Auto 0.3 % (0-2); Eosinophils Absolute Auto 100 /uL (0-450); Eosinophils Percent Auto 1.1 % (2-4); Hemoglobin 8.5 g/dL (13.5-17.5); Lymphocytes Absolute Auto 600 /uL (1100-4500); Lymphocytes Percent Auto 5.9 % (25-40); Mean Corpuscular HGB Conc 33.9 % (30-36); Mean Corpuscular Hemoglobin 34.7 PG (26-34); Mean Corpuscular Volume 102.4 fL (80-100); Monocytes Absolute Auto 1200 /uL (0-900); Monocytes Percent Auto 11.2 % (3-14); Neutrophils Absolute Auto 8700 /uL (1500-7000); Neutrophils Percent Auto 81.5 % (50-75); Platelet Count 159 X10^3/uL (150-400); Red Blood Cell Count 2.44 X10^6/uL (4.5-5.9); Red Cell Distribution Width 15.2 % (11.6-14.8); White Blood Cell Count 10.6 X10^3/uL (4.5-11.0)
[2022-05-31 05:08] LABS: Alanine Aminotransferase 12 IU/L (<50); Albumin 3.1 g/dL (3.5-5.0); Albumin Globulin Ratio 1.1 (1.0-2.8); Alkaline Phosphatase 124 U/L (38-126); Aspartate Aminotransferase 27 IU/L (17-59); BUN Creatinine Ratio 29.2 (6-22); Bilirubin Total 0.4 mg/dL (0.2-1.3); Blood Urea Nitrogen 71 mg/dL (9-20); Carbon Dioxide 20 mmol/L (22-32); Chloride 93 mmol/L (98-107); Estimated Glomerular Filt Rate 25 mL/min (>60); Globulin 2.7 g/dL (1.7-4.1); Glucose 114 mg/dL (80-110); HEMOLYSIS < 15 (0-50); Potassium 4.1 mmol/L (3.4-5.1); Sodium 127 mmol/L (137-145); Total Protein 5.8 g/dL (6.3-8.2)
[2022-05-31 05:11] LABS: Troponin I 0.045 ng/mL (0.01-0.034)
[2022-05-31] MEDS: ACETAMINOPHEN 325 MG TABLET 650 MG PO ×2 (06:18→11:34)
[2022-05-31] MEDS: THYROID, PORK 30 MG TABLET 60 MG PO (06:18)
--- NOTE | 2022-05-31 07:19 | P.PN_ITS ---
Subjective Subjective Date Patient Seen: 05/31/22 Time Patient Seen: 07:19 Interval history: Patient's pain is mild. Denies fever or chills. No nausea or vomiting. Patient states he lives alone in [place]. Exam Vital Signs (past 8 hours): - 05/31/22 00:00 05/31/22 04:00 Temperature 98.4 F 98.2 F Pulse Rate 88 81 Respiratory Rate 19 17 Blood Pressure 116/56 L 105/59 L Pulse Oximetry 97 98 Oxygen Flow Rate 1 Oxygen Delivery Method Nasal Cannula Oxygen Flow Rate 1 Narrative Exam Narrative: 86-year-old male resting comfortably in bed no apparent distress. Right hip dressing is Clean, dry, intact.. Motor functions intact distal right lower extremity. Sensation grossly intact to light touch. Right lower extremity is warm and dry. Const General: cooperative and comfortable Orientation: alert Resp Effort & Inspection: normal respiratory effort Objective Labs Result Diagrams: 05/31/22 04:29 05/31/22 04:29 Labs: Laboratory Results - last 24 hr 05/30/22 05/31/22 05/31/22 18:20 04:29 04:29 WBC 10.6 RBC 2.44 L Hgb 8.5 L Hct 25.0 L MCV 102.4 H MCH 34.7 H MCHC 33.9 RDW 15.2 H Plt Count 159 Neut % (Auto) 81.5 H Lymph % (Auto) 5.9 L [place] % (Auto) 11.2 Eos % (Auto) 1.1 L Baso % (Auto) 0.3 Neut # (Auto) 8700 H Lymph # (Auto) 600 L [place] # (Auto) 1200 H Eos # (Auto) 100 Baso # (Auto) 0 Sodium 127 L Potassium 4.1 Chloride 93 L Carbon Dioxide 20 L BUN 71 H Creatinine 2.43 H Estimated GFR 25 L BUN/Creatinine Ratio 29.2 H Glucose 114 H Calcium 9.0 Magnesium 2.0 Total Bilirubin 0.4 AST 27 ALT 12 Alkaline Phosphatase 124 Troponin I 0.047 H Total Protein 5.8 L Albumin 3.1 L Globulin 2.7 Albumin/Globulin Ratio 1.1 05/31/22 04:29 WBC RBC Hgb Hct MCV MCH MCHC RDW Plt Count Neut % (Auto) Lymph % (Auto) [place] % (Auto) Eos % (Auto) Baso % (Auto) Neut # (Auto) Lymph # (Auto) [place] # (Auto) Eos # (Auto) Baso # (Auto) Sodium Potassium Chloride Carbon Dioxide BUN Creatinine Estimated GFR BUN/Creatinine Ratio Glucose Calcium Magnesium Total Bilirubin AST ALT Alkaline Phosphatase Troponin I 0.045 H Total Protein Albumin Globulin Albumin/Globulin Ratio [facility] Medical History Allergies Aneurysm of right popliteal artery Atrial fibrillation (~2014) BPH (benign prostatic hyperplasia) BPH w urinary obs/LUTS CAD (coronary artery disease), [place] coronary artery Chicken pox Chronic systolic CHF (congestive heart failure), NYHA class 1 Congestive heart failure Coronary heart disease Elevated PSA (~2004) Essential (primary) hypertension Foot pain Ganglion cyst Gout Gout Hearing loss Heart attack Hypertension Low testosterone (~2008) Measles Mixed hyperlipidemia Mumps Osteoporosis Peripheral neuropathy Shoulder pain 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 Wears glasses Surgical History Anesthesia History of back surgery (~2009) History of circumcision 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) History of prostate biopsy History of surgery (~1998) Family History Father Prostate cancer Coronary artery disease Mother Cancer Stroke Social History marital status: number of children: 3 household members: spouse occupational status: previously employed Smoking Status: Never smoker alcohol intake: current substance use type: does not use caffeine: Yes Assessment & Plan Post-op Postoperative Procedures: Procedures Operation Date: 05/29/22 15:30 Actual Procedure Side Surgeon p Hip Hemiarthroplasty Right Chinmay Lobo MD Postoperative day: 2 Postoperative status narrative: Stable status post right hip hemiarthroplasty Post surgery hemorrhagic anemia superimposed on preop anemia. Postoperative plan: routine post-op care Postoperative plan narrative: Ambulate with physical therapy, posterior hip precautions. Multimodal pain management Discharge per hospitalist when medically stable. Currently physical therapy is [facility].
--- NOTE | 2022-05-31 08:16 | P.PN_ITS ---
Subjective Subjective Date Patient Seen: 05/31/22 Interval history: Pain is controlled at rest, feels a bit more mobile today he thinks. Denies chest pain or shortness of breath. Creatinine slightly worsened today, have held furosemide today given rising creatinine. Exam Vital Signs (past 8 hours): - 05/31/22 04:00 05/31/22 08:00 Temperature 98.2 F 98.4 F Pulse Rate 81 80 Respiratory Rate 17 20 Blood Pressure 105/59 L 116/56 L Pulse Oximetry 98 96 Oxygen Flow Rate 0 Oxygen Delivery Method Nasal Cannula Oxygen Flow Rate 0 Narrative Exam Narrative: General:? Patient is well developed and well nourished, in no distress at this time. HEENT:? Normocephalic, atraumatic, extraocular muscles intact, oral pharynx is clear and mucous membranes are moist. Neck: supple and symmetric, trachea is midline, no cervical adenopathy. Negative for JVD Chest:? Normal AP diameter and contour without kyphoscoliosis, no tachypnea, equal chest rise bilaterally. Lungs: CTA b/l without wheezes, rhonchi, or rales. Cardio:?RRR no m/r/g. Abdomen: S NT ND. Musculoskeletal:? Muscle strength and tone are equal within normal limits Extremities: No edema or joint effusions. No cyanosis or clubbing. Skin:? Pale,? Warm to touch,dry and intact without rashes, ulcerations or petechiae.? Neuro:? Alert and orientated x3,? sensation to touch intact in all extremities, no gross deficits noted of cranial nerves. Psych:? Patient has a well-kept appearance, appropriate affect, mental status attitude thought context and judgment are appropriate for age. Objective Labs Result Diagrams: 05/31/22 04:29 05/31/22 04:29 Labs: Laboratory Results - last 24 hr 05/30/22 05/31/22 05/31/22 18:20 04:29 04:29 WBC 10.6 RBC 2.44 L Hgb 8.5 L Hct 25.0 L MCV 102.4 H MCH 34.7 H MCHC 33.9 RDW 15.2 H Plt Count 159 Neut % (Auto) 81.5 H Lymph % (Auto) 5.9 L [place] % (Auto) 11.2 Eos % (Auto) 1.1 L Baso % (Auto) 0.3 Neut # (Auto) 8700 H Lymph # (Auto) 600 L [place] # (Auto) 1200 H Eos # (Auto) 100 Baso # (Auto) 0 Sodium 127 L Potassium 4.1 Chloride 93 L Carbon Dioxide 20 L BUN 71 H Creatinine 2.43 H Estimated GFR 25 L BUN/Creatinine Ratio 29.2 H Glucose 114 H Calcium 9.0 Magnesium 2.0 Total Bilirubin 0.4 AST 27 ALT 12 Alkaline Phosphatase 124 Troponin I 0.047 H Total Protein 5.8 L Albumin 3.1 L Globulin 2.7 Albumin/Globulin Ratio 1.1 05/31/22 04:29 WBC RBC Hgb Hct MCV MCH MCHC RDW Plt Count Neut % (Auto) Lymph % (Auto) [place] % (Auto) Eos % (Auto) Baso % (Auto) Neut # (Auto) Lymph # (Auto) [place] # (Auto) Eos # (Auto) Baso # (Auto) Sodium Potassium Chloride Carbon Dioxide BUN Creatinine Estimated GFR BUN/Creatinine Ratio Glucose Calcium Magnesium Total Bilirubin AST ALT Alkaline Phosphatase Troponin I 0.045 H Total Protein Albumin Globulin Albumin/Globulin Ratio [facility] Medical History Allergies Aneurysm of right popliteal artery Atrial fibrillation (~2014) BPH (benign prostatic hyperplasia) BPH w urinary obs/LUTS CAD (coronary artery disease), [place] coronary artery Chicken pox Chronic systolic CHF (congestive heart failure), NYHA class 1 Congestive heart failure Coronary heart disease Elevated PSA (~2004) Essential (primary) hypertension Foot pain Ganglion cyst Gout Gout Hearing loss Heart attack Hypertension Low testosterone (~2008) Measles Mixed hyperlipidemia Mumps Osteoporosis Peripheral neuropathy Shoulder pain 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 Wears glasses Surgical History Anesthesia History of back surgery (~2009) History of circumcision 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) History of prostate biopsy History of surgery (~1998) Family History Father Prostate cancer Coronary artery disease Mother Cancer Stroke Social History marital status: number of children: 3 household members: spouse occupational status: previously employed Smoking Status: Never smoker alcohol intake: current substance use type: does not use caffeine: Yes Assessment & Plan Assessment & Plan narrative: 86-year-old male history of diastolic/systolic congestive heart failure EF of 30-35%, CAD w/ CABG, afib with chronic AC, PAD with lower extremity bypass, CKD stage III, hypertension, hyperlipidemia, gout, NIDDM, BPH admitted with a R femoral neck fracture. 1. Comminuted and displaced R refemoral neck fracture, acute, present on admission - management per orthopedic surger - 2x post op troponins 0.047 > 0.045 with no chest pain. 2. Acute on chronic combined systolic and diastolic heart failure, present on admission with acute respiratory failure with hypoxia. - likely mild volume overload on admission improved with light diuresis, he did desaturate to the mid 80s on room air on the hospital floor. Also possible pain medications / opiates are contributing to respiratory failure as well. - hold furosemide with DOREEN today - flores placed for accurate intake and output given acute chf and in the setting of femoral fracture / lack of mobility. Will keep today given DOREEN. - last TTE 08/2021 with EF 30-35%. 3. Myocardial injury - continued to follow troponins until downtrending, post operative troponins as noted above. -TTE at this time will not change acute management. - unlikely ACS as discussed above. 4. CAD s/p CABG - continue home medications. 5. DOREEN on CKD stage III - Slight bump today likely in setting of hypotension from anesthesia. Continue to follow, will hold lasix today. - creatinine 2.4 today, baseline around 1.8. 6. HTN - continue home medications, hold cheli inhibition prior to surgery. Resume after. 7. HLD - continue home statin 8. NIDDM - NANCI, if elevated sugars will start basal therapy. 9. BPH - continue home medications. Code: Full, surrogate is patient's DVT: SCDs. hold chemical ppx prior to surgical interventions, normally on full dose AC Dispo: admit as inpatient, suspect he will need SNF based on significant chronic disease after operative interventions though patient would like to avoid if at all possible. Depends on progress with PT/OT. I have utilized all available immediate resources to obtain, update, or review the patient's current medications. COVID-19 COVID-19 status: Negative Time Spent With Patient Critical Care time: I spent a total of [] minutes of critical care time on this patient's care today; this time is exclusive of procedural time.
[2022-05-31] MEDS: polyethylene glycoL 3350 17 GM POWD.PACK PO (09:24)
[2022-05-31] MEDS: DOCUSATE 100 MG CAPSULE PO ×2 (09:26→20:14)
[2022-05-31] MEDS: SENNOSIDES 8.6 MG TABLET PO ×2 (09:26→20:13)
[2022-05-31] MEDS: APIXABAN 5 MG TABLET 2.5 MG PO ×2 (09:26→20:14)
[2022-05-31] MEDS: carvediloL 3.125 MG TABLET 6.25 MG PO ×2 (09:27→20:14)
[2022-05-31] MEDS: FERROUS SULFATE 325 MG TABLET PO (09:28)
[2022-05-31] MEDS: SODIUM CHLORIDE 0.9% FLUSH 10 ML IV ×2 (09:28→20:16)
--- NOTE | 2022-05-31 10:35 | PT.IPTN ---
Current Diagnoses Stress fracture, hip, unspecified, initial encounter for fracture (05/28/22) Surgery Performed Operation Date: 05/29/22 15:30 Actual Procedures p Hip Hemiarthroplasty(Right) - Chinmay Lobo MD Physical Therapy Treatment Note M2 PT-IP Current Condition Start: 05/30/22 12:58 Freq: NEEDED Status: Active Protocol: Document 05/30/22 11:15 AB (Rec: 05/30/22 13:09 AB [id number]) Physical Therapy Current Condition Current Condition Evaluation Date 05/30/22 Treatment Diagnosis R femoral neck fx s/p R hip hemiarthroplasty; difficulty in walking Onset Date 05/28/22 M3 PT-IP Subjective Start: 05/30/22 12:58 Freq: NEEDED Status: Active Protocol: Document 05/31/22 10:07 KS (Rec: 05/31/22 12:04 KS [id number]) Subjective Physical Therapy Visit Type Type Treatment Note Visit Start Time 10:07 Visit Stop Time 10:35 Total Visit Minutes 28 Notes Family present Co-treat w/ OT Number of CHAIR LIFT OPERATOR Visits 2 Physical Therapy Visit Comments Patient Comments agreeable to do PT Therapy Pain Assessment Pain When Pain Assessed During Mobility Pain Present Pain Present Pain Reported Location Right Hip Intensity 2 Scale Used Numeric (0 - 10) Pain Behaviors Guarding Pain Management Techniques Modification of Treatment,Re- positioning M4 PT-IP Mobility and Gait Start: 05/30/22 12:58 Freq: NEEDED Status: Active Protocol: Document 05/31/22 10:07 KS (Rec: 05/31/22 12:04 KS [id number]) PT-Bed Mobility Assessment Supine to Sit Supine to Sit Minimal Assistance,Head of Bed Elevated Scooting Scooting to Edge of Bed Moderate Assistance PT-Transfer Assessment Sit to and From Stand Sit to and from Stand Maximum Assistance,2 Person Assistance,Use of Upper Extremities Equipment Transfer Assistive Device Gait Belt,Front Wheeled Walker Orthotic/Prosthetic Devices or Brace: No Transfers Transfer Destination Chair Transfer Technique Stand Step Pivot Transfer Ability Level of Assist Maximum Assistance,2 Person Assistance,Use of Upper Extremities Comments Mobility Comments Pt in bed upon arrival and family in room. Pt agreeable to mobilizing. Able to perform SLR and required Min A for sup<>sit and Mod A for scooting EOB w/ cues for hand placement and sequencing. Pt able to maintain seated balance EOB. Required Max A x2 for sit<>stand w/ FWW and cues. Pt able to maintain standing balance Min A today and performed stand step pivot to chair w/ Min A x2 and cues for sequencing and FWW use. After seated rest break, pt performed 2x 8ft ambulation w/ FWW MiN A x2 and chair follow w/ seated rest break between. He required increased assistance w/ distance due to fatigue. Has improve recall for sit<>stand sequencing but still requires some cues, especially for hand placment. Reveiwed ther ex and pt left w / OT. Gait Assessment Gait Gait Assistance Required: Minimum Assistance,2 Person Assist Distance (Feet) 8 Able to Maintain Weight Bearing Status Yes During Gait Assistive Devices Assistive Device Gait Belt,Front Wheeled Walker Orthotic/Prosthetic Devices or Brace: No Gait Deviations General Gait Pattern Antalgic,Decreased Stride Length,Decreased Feet Clearance,Step-to Gait Factors Limiting Gait Function Factors Limiting Gait Function Decreased Activity Tolerance, Decreased Strength, Incoordination,Limited Range of Motion,Pain,Poor Balance, Poor Safety Awareness Comments Gait Comments Please refer to mobility section for details. PT-Balance Assessment Sitting Balance and Reactions Static Sitting Balance Ability Fair Dynamic Sitting Balance Ability Fair Standing Balance and Reactions Static Standing Balance Ability Fair Dynamic Standing Balance Ability Fair Device Used FWW M5 PT-IP Objective Assessments Start: 05/30/22 12:58 Freq: NEEDED Status: Active Protocol: Document 05/30/22 11:15 AB (Rec: 05/30/22 13:09 AB [id number]) Orientation Orientation/Cognition Level of Alertness Confusional State Orientation Name Language Function Ability Hard of Hearing Memory Description Short Term Impaired Gross Range of Motion Lower Extremity ROM Assessment Within Functional Limits Strength Lower Extremity Strength Assessment Right Impaired Hip 3+/5 Knee 4-/5 Sensation Assessment Sensation Gross Sensation WNL Muscle Tone Muscle Tone WNL Yes M6 PT-IP Treatment Start: 05/30/22 12:58 Freq: NEEDED Status: Active Protocol: Document 05/31/22 10:07 KS (Rec: 05/31/22 12:04 KS [id number]) Physical Therapy Treatment Exercises Exercises Ankle Pumps,Gluteal Sets,Quad Sets Education Education Provided Precautions,Weight Bearing Status,Post-Op Packet,Safety M7 PT-IP Assessment and Plan Start: 05/30/22 12:58 Freq: NEEDED Status: Active Protocol: Document 05/31/22 10:07 KS (Rec: 05/31/22 12:04 KS [id number]) PT Summary Assessment and Plan Potential Rehabilitation Potential Fair Summary Impairments Pain,ROM,Strength,Balance, Coordination,Sensation,Tone, Cognition,Bed Mobility, Transfers,Gait,Activity Tolerance Progress Towards Goals Progressing Toward Goals,Slow Progress due to Activity Tolerance Assessment Summary Pt showed improvement w/ mobility and was able to ambulate this AM, but still requires 2 PA and Max Ax2 for sit<>stand w/ FWW. He performed 2x 8ft ambulation w/ Min A x2 w/ quick approach to fatigue and close chair follow. He is a high fall risk and will require SNF to improve strength and functional mobility independence. Goals Bed Mobility Goal Minimal Assistance Transfer Goal Minimal Assistance,Front Wheeled Walker Gait Goal Minimal Assistance,Front Wheel Walker Gait Distance 50 Other Goals improve bed mobility, transfers using fWW and ambulation using FWW 100 ft SBA Days to Meet Goals 10 Frequency of Treatment Frequency Of Treatment Twice a Day Treatment Plan Physical Therapy Treatment Plan Bed Mobility Training,Transfer Training,Gait Training, Therapeutic Exercise,Balance Retraining,Post Op Education, Discharge Planning,Hot or Cold Pack,Neuromuscular Re-ed, Coordination Retraining,Manual Therapy Precautions Posterior Hip Precautions No Hip Flexion > 90 degrees,No Hip Internal Rotation,No Hip Adduction Weight Bearing Status Weight Bearing Status Weight Bear as Tolerated Allowed Weight Bearing Amount (enter % RLE WBAT or #) (%) Recommendations To Nursing Amount of Assist Needed 2 Person Assist Discharge Recommendations PT Discharge Recommendations SNF Rehab Transportation Needs at Discharge Wheelchair/Cabulance
--- NOTE | 2022-05-31 10:42 | OT.IP.TRT ---
Current Diagnoses Stress fracture, hip, unspecified, initial encounter for fracture (05/28/22) Surgery Performed Operation Date: 05/29/22 15:30 Actual Procedures p Hip Hemiarthroplasty(Right) - Chinmay Lobo MD Occupational Therapy Treatment Note M2 OT-IP Current Condition Start: 05/30/22 14:21 Freq: Status: Active Protocol: Document 05/30/22 14:15 [facility] (Rec: 05/30/22 15:48 [facility] [id number]) Occupational Therapy Current Condition Current Condition Evaluation Date 05/30/22 Treatment Diagnosis S/p Right femoral neck fracture Post Operative Precautions Posterior Hip Precautions No Hip Flexion > 90 degrees,No Hip Internal Rotation,No Hip Adduction M3 OT- IP Subjective and Pain Start: 05/30/22 14:21 Freq: Status: Active Protocol: Document 05/31/22 10:07 [facility] (Rec: 05/31/22 12:37 [facility] [id number]) OT- Subjective Occupational Therapy Visit Type Type Treatment Note Visit Start Time 10:07 Visit Stop Time 10:42 Total Visit Minutes 35 Occupational Therapy Visit Comments Patient Comments Pt wanting to get up. Patient/Caregiver Goals TO get better and be able to go home. OT Pain Assessment Pain When Pain Assessed During Mobility Pain Present Pain Present Pain Reported Location Right Hip Intensity 2 Scale Used Numeric (0 - 10) M4 OT- IP ADL's Start: 05/30/22 14:21 Freq: Status: Active Protocol: Document 05/31/22 10:07 [facility] (Rec: 05/31/22 12:37 [facility] [id number]) OT [id number] Comments OT Self-Feeding Comments Not at meal time. OT ADL-Grooming General Evaluation Grooming Ability Minimal Assistance Comments OT Grooming Comments Pt assist pt to brush his hair . OT ADL-Oral Care General Eval Oral Care Ability Standby Assistance Comments Oral Care Comments Pt able to do grooming needs prior. OT ADL-Toileting General Evaluation Toileting Ability Total Assistance Comments OT Toileting Comments Patterson in place. OT ADL-Bathing Comments OT Bathing Comments Sponge bath still more appropriate but getting closer to be able to attempt a shower. M5 OT- IP IADL's Start: 05/30/22 14:21 Freq: Status: Active Protocol: Document 05/30/22 14:15 [facility] (Rec: 05/30/22 15:48 [facility] [id number]) OT-Instrumental Activities of Daily Living Medication Management Medication Management Comments Pt states able to do on his own prior. Money Management Money Management Comments Pt able to do prior. Meal Preparation Meal Preparation Caregiver Provides Assist Construction Worker Construction Worker Caregiver Provides Assist M6 OT- IP Functional Cognition Start: 05/30/22 14:21 Freq: Status: Active Protocol: Document 05/31/22 10:07 [facility] (Rec: 05/31/22 12:37 [facility] [id number]) Cognitive Factors Limiting Selfcare Function Cognitive Comments Cognitive Assessment Comments Pt able to recall 2/3 hip precautions and needing reminders to recall not to cross his legs. Pt still needing cues to follow sequence for safety for RLE positioning and hand placement needs. M7 OT- IP Mobility and Balance Start: 05/30/22 14:21 Freq: Status: Active Protocol: Document 05/31/22 10:07 [facility] (Rec: 05/31/22 12:37 [facility] [id number]) OT- Bed Mobility Assessment Supine to Sit Supine to Sit Assist Minimal Assistance,1 Person Assistance,Head of Bed Elevated Scooting Scooting to Edge of Bed Moderate Assistance,1 Person Assistance OT-Transfer Assessment Sit to and From Stand Sit to and from Stand Maximum Assistance,2 Person Assistance Comments Mobility Comments Pt able to move his RLE better today . MODA to help scoot his hips forwards with the green pad and at the end of the session able to do with the armrests of the recliner to assist. Sit to stand MAX A x2 to FWW. Pt able to take some steps with with HARRY x2 with FWW. OT- Balance Assessment Sitting Balance and Reactions Static Sitting Balance Ability Fair Dynamic Sitting Balance Ability Fair Standing Balance and Reactions Static Standing Balance Ability Fair M8 OT- IP Objective Assessments Start: 05/30/22 14:21 Freq: Status: Active Protocol: Document 05/30/22 14:15 [facility] (Rec: 05/30/22 15:48 [facility] [id number]) OT Gross Range of Motion Upper Extremity Range of Motion Assessment Left Impaired OT Strength Upper Extremity Strength Assessment Left Impaired Comments Strength Comments Limited AROM and strength in LUE due to rotator cuff injury per his . OT-Muscle Tone Assessment Muscle Tone WNL Yes M9 OT- IP Assessment and Plan Start: 05/30/22 14:21 Freq: Status: Active Protocol: Document 05/31/22 10:07 [facility] (Rec: 05/31/22 12:37 [facility] [id number]) OT Summary Assessment and Plan Potential Rehabilitation Potential Good Analytic Complexity at Evaluation Moderate Summary OT Impairments Pain,Balance,Functional Mobility,Grooming,Dressing, Toileting,Bathing,Toilet Transfers,Shower Transfers, Activity Tolerance Progress Towards Goals Progressing Toward Goals Assessment Summary Today pt much improved for mobility needs and able to take a few steps today with HARRY x2 with FWW. Pt is highly motivated and cooperative and a good candidate for skilled rehab. Goals Self-Feeding Goal Independent Grooming Goal Independent Dressing Goal Minimal Assistance Toileting Goal Independent Bathing Goal Standby Assistance Toilet Transfer Goal Independent Shower Transfer Goal Contact Guard Assistance Days to Meet Goals 39 Frequency of Treatment Frequency Of Treatment Once a Day Treatment Plan OT Treatment Plan ADL Training,Functional Cognition Training,Functional Mobility,Patient/Family Education,Discharge Planning Other Treatment Recommendations and Next practice LB dressing equipment Treatment Focus , transfer to [facility] with FWW Discharge Recommendations OT Discharge Recommendations SNF Rehab Transportation Needs at Discharge Wheelchair/Cabulance
[2022-05-31] MEDS: OXYCODONE IR 5 MG TABLET PO (11:32)
[2022-05-31] MEDS: INSULIN LISPRO 100 UNIT/ML 3ML VIAL SUBCUT (11:40)
--- NOTE | 2022-05-31 11:56 | PC.NURSE ---
Day shift note - A&Ox3, believed to be in another hospital was easily reoriented. Up in chair with physical therapy with pain 12/04. See MAR for intervention. 1L NC. VSS. Family at bedside. Patient able to make needs known, use call light. Call light within reach. Will continue to monitor.
--- NOTE | 2022-05-31 13:37 | PT.IPTN ---
Current Diagnoses Stress fracture, hip, unspecified, initial encounter for fracture (05/28/22) Surgery Performed Operation Date: 05/29/22 15:30 Actual Procedures p Hip Hemiarthroplasty(Right) - Chinmay Lobo MD Physical Therapy Treatment Note M2 PT-IP Current Condition Start: 05/30/22 12:58 Freq: NEEDED Status: Active Protocol: Document 05/30/22 11:15 AB (Rec: 05/30/22 13:09 AB [id number]) Physical Therapy Current Condition Current Condition Evaluation Date 05/30/22 Treatment Diagnosis R femoral neck fx s/p R hip hemiarthroplasty; difficulty in walking Onset Date 05/28/22 M3 PT-IP Subjective Start: 05/30/22 12:58 Freq: NEEDED Status: Active Protocol: Document 05/31/22 13:52 TS (Rec: 05/31/22 14:33 TS [id number]) Subjective Physical Therapy Visit Type Type Treatment Note Visit Start Time 13:12 Visit Stop Time 13:37 Total Visit Minutes 25 Number of PRODUCE BUYER Visits 3 Physical Therapy Visit Comments Patient Comments Agreeable to PT M4 PT-IP Mobility and Gait Start: 05/30/22 12:58 Freq: NEEDED Status: Active Protocol: Document 05/31/22 13:52 TS (Rec: 05/31/22 14:33 TS [id number]) PT-Bed Mobility Assessment Sit to Supine Sit to Supine Maximum Assistance,1 Person Assistance Scooting Scooting to Edge of Bed Standby Assistance Scooting Up and Down in Bed Moderate Assistance PT-Transfer Assessment Sit to and From Stand Sit to and from Stand Maximum Assistance,2 Person Assistance Equipment Transfer Assistive Device Gait Belt,Front Wheeled Walker Orthotic/Prosthetic Devices or Brace: No Transfers Transfer Destination Bed Transfer Technique Stand Step Pivot Transfer Ability Level of Assist Maximum Assistance,1 Person Assistance,Use of Upper Extremities Comments Mobility Comments Pt found resting in chair, performed sit to stands x2 with MaxA, demonstrated good carryover of sequencing from previous session. Demonstrated posterior lean in standing requiring verbal and tactile cues for upright posture and shifting weight onto balls of feet. He performed stand pivot transfer from chair MaxA to bed with cues for sidestepping and lining self up to bed. He demonstrated the ability to assist trunk from sitting to supine with bed handrail assist but required MaxA for LEs. Pt left in bed w/ alarm on, SCDs on, and all needs in reach. Gait Assessment Gait Gait Assistance Required: Minimum Assistance,2 Person Assist Distance (Feet) 8 Able to Maintain Weight Bearing Status Yes During Gait Assistive Devices Assistive Device Gait Belt,Front Wheeled Walker Orthotic/Prosthetic Devices or Brace: No Gait Deviations General Gait Pattern Antalgic,Decreased Stride Length,Decreased Feet Clearance,Step-to Gait Factors Limiting Gait Function Factors Limiting Gait Function Decreased Activity Tolerance, Decreased Strength, Incoordination,Limited Range of Motion,Pain,Poor Balance, Poor Safety Awareness Comments Gait Comments Pt ambulated forward and backward walk with FWW to chair. Required consistent cues for posterior lean. Slighlty impulsive to ambulate before therapist was ready. PT-Balance Assessment Sitting Balance and Reactions Static Sitting Balance Ability Fair Dynamic Sitting Balance Ability Fair Standing Balance and Reactions Static Standing Balance Ability Fair Dynamic Standing Balance Ability Fair Device Used FWW M5 PT-IP Objective Assessments Start: 05/30/22 12:58 Freq: NEEDED Status: Active Protocol: Document 05/30/22 11:15 AB (Rec: 05/30/22 13:09 AB [id number]) Orientation Orientation/Cognition Level of Alertness Confusional State Orientation Name Language Function Ability Hard of Hearing Memory Description Short Term Impaired Gross Range of Motion Lower Extremity ROM Assessment Within Functional Limits Strength Lower Extremity Strength Assessment Right Impaired Hip 3+/5 Knee 4-/5 Sensation Assessment Sensation Gross Sensation WNL Muscle Tone Muscle Tone WNL Yes M6 PT-IP Treatment Start: 05/30/22 12:58 Freq: NEEDED Status: Active Protocol: Document 05/31/22 13:52 TS (Rec: 05/31/22 14:33 TS [id number]) Physical Therapy Treatment Education Education Provided Precautions,Weight Bearing Status,Post-Op Packet,Safety M7 PT-IP Assessment and Plan Start: 05/30/22 12:58 Freq: NEEDED Status: Active Protocol: Document 05/31/22 13:52 TS (Rec: 05/31/22 14:33 TS [id number]) PT Summary Assessment and Plan Potential Rehabilitation Potential Fair Summary Impairments Pain,ROM,Strength,Balance, Coordination,Sensation,Tone, Cognition,Bed Mobility, Transfers,Gait,Activity Tolerance Progress Towards Goals Progressing Toward Goals,Slow Progress due to Activity Tolerance Assessment Summary Pt demonstrated good carryover of sit to stands sequencing from previous session. Continues to lean posteriorly when in standing requring Max cues for correcting. Spo2 at rest was low to mid 90s, after ambulation 87% o2 requiring cues for purse lip breathing. Pt was fatigued after ambulating back to chair and requested to go back to bed, O2 97% at rest. Pt is still a high fall risk, PT recommending SNF to improve activity tolerance, functional mobility and transfers. Goals Bed Mobility Goal Minimal Assistance Transfer Goal Minimal Assistance,Front Wheeled Walker Gait Goal Minimal Assistance,Front Wheel Walker Gait Distance 50 Other Goals improve bed mobility, transfers using fWW and ambulation using FWW 100 ft SBA Days to Meet Goals 10 Frequency of Treatment Frequency Of Treatment Twice a Day Treatment Plan Physical Therapy Treatment Plan Bed Mobility Training,Transfer Training,Gait Training, Therapeutic Exercise,Balance Retraining,Post Op Education, Discharge Planning,Hot or Cold Pack,Neuromuscular Re-ed, Coordination Retraining,Manual Therapy Precautions Posterior Hip Precautions No Hip Flexion > 90 degrees,No Hip Internal Rotation,No Hip Adduction Weight Bearing Status Weight Bearing Status Weight Bear as Tolerated Allowed Weight Bearing Amount (enter % RLE WBAT or #) (%) Recommendations To Nursing Amount of Assist Needed 2 Person Assist Discharge Recommendations PT Discharge Recommendations SNF Rehab Transportation Needs at Discharge Wheelchair/Cabulance
--- NOTE | 2022-05-31 14:53 | CM.DPNOTE ---
Addendum entered by SANDRA Pedroza 06/01/22 11:27: ADD: Patient is not medically stable for discharge today, updated [facility]ma at [facility] and transport cancelled. Karma explains that transportation and admission staffing is limited, Karma is unlikely to be able to accept this patient for admission until Friday. Dr Whitlock updated VM from family member (son?) Jeronimo Zach# [phone] asking for a referral to [facility]; this has already been done so placed call to [facility] to request a re-review of this referral. [facility] has the auth secured so alt facility placement may not be available at this time. MARILEE Original Note: DCP Note [facility] has accepted patient for admission tomorrow 06.01.22 if medically stable. Transport arranged for 929 RN updated, [facility] being updated today in anticipation of DC to SNF tomorrow MARILEE
[2022-05-31] MEDS: FINASTERIDE 5 MG TABLET 2.5 MG PO (20:13)
[2022-05-31] MEDS: SENNOSIDES 8.6 MG TABLET 17.2 MG PO (20:13)
[2022-05-31 20:56] LABS: COVID19 -Nasal RAPID Negative (Negative)
[2022-05-31] MEDS: OXYCODONE IR 10 MG TABLET PO (20:57)
[2022-06-01] VITALS (7 sets, daily range): BP systolic 99–127; BP diastolic 54–65; PULSE 76–83; RESP 18–20; TEMP 36.4–37.4; O2SAT 92–97
[2022-06-01] MEDS: ACETAMINOPHEN 325 MG TABLET 650 MG PO ×2 (00:30→06:02)
[2022-06-01] MEDS: HYDROMORPHONE 0.5 MG INJ 0.2 MG IV (01:45)
[2022-06-01] MEDS: SODIUM CHLORIDE 0.9% FLUSH 10 ML IV ×3 (01:45→21:11)
[2022-06-01] MEDS: HYDROMORPHONE 2 MG TABLET PO (04:52)
[2022-06-01 05:23] LABS: BUN Creatinine Ratio 41.2 (6-22); Blood Urea Nitrogen 89 mg/dL (9-20); Calcium 9.5 mg/dL (8.4-10.2); Carbon Dioxide 21 mmol/L (22-32); Chloride 93 mmol/L (98-107); Estimated Glomerular Filt Rate 29 mL/min (>60); Glucose 106 mg/dL (80-110); HEMOLYSIS < 15 (0-50); Potassium 4.5 mmol/L (3.4-5.1); Sodium 125 mmol/L (137-145)
[2022-06-01] MEDS: THYROID, PORK 30 MG TABLET 60 MG PO (06:01)
[2022-06-01] MEDS: APIXABAN 5 MG TABLET 2.5 MG PO ×2 (08:19→21:10)
[2022-06-01] MEDS: FERROUS SULFATE 325 MG TABLET PO (08:19)
[2022-06-01] MEDS: DOCUSATE 100 MG CAPSULE PO ×2 (08:20→21:10)
[2022-06-01] MEDS: SENNOSIDES 8.6 MG TABLET PO (08:20)
[2022-06-01] MEDS: carvediloL 3.125 MG TABLET 6.25 MG PO ×2 (08:20→21:10)
[2022-06-01] MEDS: polyethylene glycoL 3350 17 GM POWD.PACK PO (08:21)
--- NOTE | 2022-06-01 10:30 | PM.PNPO.1 ---
Subjective Subjective Date Patient Seen: 06/01/22 Time Patient Seen: 10:30 Interval history: Observed pt working with physical therapy. Per CM notes, appears plan is for d/c to [facility] in [place] when medically stable. Exam Vital Signs (past 8 hours): - 06/01/22 04:00 06/01/22 07:00 06/01/22 08:57 Temperature 99.3 F 97.8 F Pulse Rate 80 80 Respiratory Rate 19 18 Blood Pressure 127/62 109/58 L Pulse Oximetry 96 97 Oxygen Delivery Method Room Air Oxygen Flow Rate 2 2 Oxygen Delivery Method Room Air Oxygen Flow Rate 2 Narrative Exam Narrative: Transferring from bed and taking steps with walker w/ 2 person assist and constant cuing. Aquacel dressing CDI. Objective Labs Result Diagrams: 05/31/22 04:29 06/01/22 05:04 Labs: Laboratory Results - last 24 hr 05/31/22 06/01/22 16:15 05:04 Sodium 125 L Potassium 4.5 Chloride 93 L Carbon Dioxide 21 L BUN 89 H Creatinine 2.16 H Estimated GFR 29 L BUN/Creatinine Ratio 41.2 H Glucose 106 Calcium 9.5 SARS-CoV-2 (PCR) Negative [facility] Medical History Allergies Aneurysm of right popliteal artery Atrial fibrillation (~2014) BPH (benign prostatic hyperplasia) BPH w urinary obs/LUTS CAD (coronary artery disease), [place] coronary artery Chicken pox Chronic systolic CHF (congestive heart failure), NYHA class 1 Congestive heart failure Coronary heart disease Elevated PSA (~2004) Essential (primary) hypertension Foot pain Ganglion cyst Gout Gout Hearing loss Heart attack Hypertension Low testosterone (~2008) Measles Mixed hyperlipidemia Mumps Osteoporosis Peripheral neuropathy Shoulder pain 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 Wears glasses Surgical History Anesthesia History of back surgery (~2009) History of circumcision 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) History of prostate biopsy History of surgery (~1998) Family History Father Prostate cancer Coronary artery disease Mother Cancer Stroke Social History marital status: number of children: 3 household members: spouse occupational status: previously employed Smoking Status: Never smoker alcohol intake: current substance use type: does not use caffeine: Yes Assessment & Plan Post-op Assessment and plan (1) Status post hip hemiarthroplasty: Assessment and Plan narrative: SNF when medically stable. F/u w/ ortho in 10 days for wound check. If this is not convenient, may remove dressing and do wound check at SNF in 10 days. Pt should f/u w/ Dr Lobo in 6 weeks for repeat imaging. VTE prophylaxis per hospitalist service. Postoperative Procedures: Procedures Operation Date: 05/29/22 15:30 Actual Procedure Side Surgeon p Hip Hemiarthroplasty Right Chinmay Lobo MD Postoperative day: 3
--- NOTE | 2022-06-01 10:41 | PT.IPTN ---
Current Diagnoses Stress fracture, hip, unspecified, initial encounter for fracture (05/28/22) Presence of unspecified artificial hip joint (05/28/22) Surgery Performed Operation Date: 05/29/22 15:30 Actual Procedures p Hip Hemiarthroplasty(Right) - Chinmay Lobo MD Physical Therapy Treatment Note M2 PT-IP Current Condition Start: 05/30/22 12:58 Freq: NEEDED Status: Active Protocol: Document 05/30/22 11:15 AB (Rec: 05/30/22 13:09 AB [id number]) Physical Therapy Current Condition Current Condition Evaluation Date 05/30/22 Treatment Diagnosis R femoral neck fx s/p R hip hemiarthroplasty; difficulty in walking Onset Date 05/28/22 M3 PT-IP Subjective Start: 05/30/22 12:58 Freq: NEEDED Status: Active Protocol: Document 06/01/22 10:15 KS (Rec: 06/01/22 11:16 KS [id number]) Subjective Physical Therapy Visit Type Type Treatment Note Visit Start Time 10:15 Visit Stop Time 10:41 Total Visit Minutes 31 Notes ELECTRIC REPAIR SUPERVISOR and RN present for 2nd person assistance Number of LODGING FACILITIES MANAGER Visits 4 Physical Therapy Visit Comments Patient Comments Agreeable to PT M4 PT-IP Mobility and Gait Start: 05/30/22 12:58 Freq: NEEDED Status: Active Protocol: Document 06/01/22 10:15 KS (Rec: 06/01/22 11:16 KS [id number]) PT-Bed Mobility Assessment Supine to Sit Supine to Sit Contact Guard Assistance,1 Person Assistance,Head of Bed Elevated Scooting Scooting to Edge of Bed Moderate Assistance PT-Transfer Assessment Sit to and From Stand Sit to and from Stand Maximum Assistance,1 Person Assistance,2 Person Assistance ,Use of Upper Extremities Equipment Transfer Assistive Device Gait Belt,Front Wheeled Walker Orthotic/Prosthetic Devices or Brace: No Transfers Transfer Destination Chair Transfer Technique Pt ambulated Transfer Ability Level of Assist Maximum Assistance,1 Person Assistance,Use of Upper Extremities Comments Mobility Comments Pt in bed upon arrival and agreeable to mobilize. CGA and cues for sup<>sit, Mod A for scooting EOB. Pt fatigues quickly. Able to recall 2/3 precautions (no IR). Pt performed sit<>stand w/ FWW Max A from raised bedw/ cues for hand placement and sequencing. Continues to have posterior lean when standing but responds well to verbal and tactile cues. Performed stand step pivot to chair Min A x2 and after seated rest break performed ~15 ft ambulation w/ FWW and Min A x2 . Pt ambulates very slowly w/ FWW, minimal foot clearance and small steps and requires cues for step sequence and FWW use. Pt fatigues quickly and becomes slightly SOB w/ ambulation. Returned to chair, Mod A for slow descent, cues for hand placment. Reveiwed exercises and pt left in chair w/ all needs in reach. Gait Assessment Gait Gait Assistance Required: Minimum Assistance,2 Person Assist Distance (Feet) 15 Able to Maintain Weight Bearing Status Yes During Gait Assistive Devices Assistive Device Gait Belt,Front Wheeled Walker Orthotic/Prosthetic Devices or Brace: No Gait Deviations General Gait Pattern Antalgic,Decreased Stride Length,Decreased Feet Clearance,Step-to Gait Factors Limiting Gait Function Factors Limiting Gait Function Decreased Activity Tolerance, Decreased Strength, Incoordination,Limited Range of Motion,Pain,Poor Balance, Poor Safety Awareness Comments Gait Comments Please refer to mobility section for details. PT-Balance Assessment Sitting Balance and Reactions Static Sitting Balance Ability Good Dynamic Sitting Balance Ability Good Standing Balance and Reactions Static Standing Balance Ability Fair Dynamic Standing Balance Ability Fair Device Used FWW M5 PT-IP Objective Assessments Start: 05/30/22 12:58 Freq: NEEDED Status: Active Protocol: Document 05/30/22 11:15 AB (Rec: 05/30/22 13:09 AB [id number]) Orientation Orientation/Cognition Level of Alertness Confusional State Orientation Name Language Function Ability Hard of Hearing Memory Description Short Term Impaired Gross Range of Motion Lower Extremity ROM Assessment Within Functional Limits Strength Lower Extremity Strength Assessment Right Impaired Hip 3+/5 Knee 4-/5 Sensation Assessment Sensation Gross Sensation WNL Muscle Tone Muscle Tone WNL Yes M6 PT-IP Treatment Start: 05/30/22 12:58 Freq: NEEDED Status: Active Protocol: Document 06/01/22 10:15 KS (Rec: 06/01/22 11:16 KS [id number]) Physical Therapy Treatment Exercises Exercises Ankle Pumps,Gluteal Sets,Quad Sets,Straight Leg Raises Education Education Provided Precautions,Weight Bearing Status,Post-Op Packet,Safety M7 PT-IP Assessment and Plan Start: 05/30/22 12:58 Freq: NEEDED Status: Active Protocol: Document 06/01/22 10:15 DARWIN (Rec: 06/01/22 11:16 KS [id number]) PT Summary Assessment and Plan Potential Rehabilitation Potential Fair Summary Impairments Pain,ROM,Strength,Balance, Coordination,Sensation,Tone, Cognition,Bed Mobility, Transfers,Gait,Activity Tolerance Progress Towards Goals Progressing Toward Goals,Slow Progress due to Activity Tolerance Assessment Summary Pt continues to make slow progress, but is limited by weakness, poor balance, and low tolerance for activity. Responds well to cues throughout treatment. Able to ambulate ~15 ft w/ FWW today. Continues to have posterior lean upon standing. He performed 2x 8ft ambulation w/ Min A x2 w/ quick approach to fatigue and close chair follow. He is a high fall risk and will require SNF to improve strength and functional mobility independence. Goals Bed Mobility Goal Minimal Assistance Transfer Goal Minimal Assistance,Front Wheeled Walker Gait Goal Minimal Assistance,Front Wheel Walker Gait Distance 50 Other Goals improve bed mobility, transfers using fWW and ambulation using FWW 100 ft SBA Days to Meet Goals 10 Frequency of Treatment Frequency Of Treatment Twice a Day Treatment Plan Physical Therapy Treatment Plan Bed Mobility Training,Transfer Training,Gait Training, Therapeutic Exercise,Balance Retraining,Post Op Education, Discharge Planning,Hot or Cold Pack,Neuromuscular Re-ed, Coordination Retraining,Manual Therapy Precautions Posterior Hip Precautions No Hip Flexion > 90 degrees,No Hip Internal Rotation,No Hip Adduction Weight Bearing Status Weight Bearing Status Weight Bear as Tolerated Allowed Weight Bearing Amount (enter % RLE WBAT or #) (%) Recommendations To Nursing Amount of Assist Needed 2 Person Assist Discharge Recommendations PT Discharge Recommendations SNF Rehab Transportation Needs at Discharge Wheelchair/Cabulance
[2022-06-01] MEDS: INSULIN LISPRO 100 UNIT/ML 3ML VIAL SUBCUT ×2 (11:41→17:06)
[2022-06-01 12:21] LABS: Sodium Urine Random < 5 mmol/L (30-90)
--- NOTE | 2022-06-01 12:58 | P.PN_ITS ---
Subjective Subjective Date Patient Seen: 06/01/22 Interval history: Pain is controlled at rest, feels a bit more mobile today he thinks. Denies chest pain or shortness of breath. Creatinine improved today but worsened sodium. Urine Na was <5. Encouraged PO intake but if sodium continues to fall will need to start slow fluids. Exam Vital Signs (past 8 hours): - 06/01/22 07:00 06/01/22 08:57 06/01/22 12:11 Temperature 97.8 F 97.6 F Pulse Rate 80 76 Respiratory Rate 18 18 Blood Pressure 109/58 L 110/54 L Pulse Oximetry 97 92 Oxygen Delivery Method Room Air Oxygen Flow Rate 2 2 Oxygen Delivery Method Room Air Oxygen Flow Rate 2 Narrative Exam Narrative: General:? Patient is well developed and well nourished, in no distress at this time. HEENT:? Normocephalic, atraumatic, extraocular muscles intact, oral pharynx is clear and mucous membranes are moist. Neck: supple and symmetric, trachea is midline, no cervical adenopathy. Negative for JVD Chest:? Normal AP diameter and contour without kyphoscoliosis, no tachypnea, equal chest rise bilaterally. Lungs: CTA b/l without wheezes, rhonchi, or rales. Cardio:?RRR no m/r/g. Abdomen: S NT ND. Musculoskeletal:? Muscle strength and tone are equal within normal limits Extremities: No edema or joint effusions. No cyanosis or clubbing. Skin:? Pale,? Warm to touch,dry and intact without rashes, ulcerations or petechiae.? Neuro:? Alert and orientated x3,? sensation to touch intact in all extremities, no gross deficits noted of cranial nerves. Psych:? Patient has a well-kept appearance, appropriate affect, mental status attitude thought context and judgment are appropriate for age. Objective Labs Result Diagrams: 05/31/22 04:29 06/01/22 05:04 Labs: Laboratory Results - last 24 hr 05/31/22 06/01/22 06/01/22 16:15 05:04 11:00 Sodium 125 L Potassium 4.5 Chloride 93 L Carbon Dioxide 21 L BUN 89 H Creatinine 2.16 H Estimated GFR 29 L BUN/Creatinine Ratio 41.2 H Glucose 106 Calcium 9.5 Ur Random Sodium < 5 L SARS-CoV-2 (PCR) Negative [facility] Medical History Allergies Aneurysm of right popliteal artery Atrial fibrillation (~2014) BPH (benign prostatic hyperplasia) BPH w urinary obs/LUTS CAD (coronary artery disease), [place] coronary artery Chicken pox Chronic systolic CHF (congestive heart failure), NYHA class 1 Congestive heart failure Coronary heart disease Elevated PSA (~2004) Essential (primary) hypertension Foot pain Ganglion cyst Gout Gout Hearing loss Heart attack Hypertension Low testosterone (~2008) Measles Mixed hyperlipidemia Mumps Osteoporosis Peripheral neuropathy Shoulder pain 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 Wears glasses Surgical History Anesthesia History of back surgery (~2009) History of circumcision 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) History of prostate biopsy History of surgery (~1998) Family History Father Prostate cancer Coronary artery disease Mother Cancer Stroke Social History marital status: number of children: 3 household members: spouse occupational status: previously employed Smoking Status: Never smoker alcohol intake: current substance use type: does not use caffeine: Yes Assessment & Plan Assessment & Plan narrative: 86-year-old male history of diastolic/systolic congestive heart failure EF of 30-35%, CAD w/ CABG, afib with chronic AC, PAD with lower extremity bypass, CKD stage III, hypertension, hyperlipidemia, gout, NIDDM, BPH admitted with a R femoral neck fracture. 1. Comminuted and displaced R refemoral neck fracture, acute, present on admission - management per orthopedic surger - 2x post op troponins 0.047 > 0.045 with no chest pain. 2. Acute on chronic combined systolic and diastolic heart failure, present on admission with acute respiratory failure with hypoxia. - likely mild volume overload on admission improved with light diuresis, he did desaturate to the mid 80s on room air on the hospital floor. Also possible pain medications / opiates are contributing to respiratory failure as well. - hold furosemide with DOREEN and hyponatremia today. - flores placed for accurate intake and output given acute chf and in the setting of femoral fracture / lack of mobility. Will keep today. Will need trial of void prior to discharge. - last TTE 08/2021 with EF 30-35%. 3. Myocardial injury - continued to follow troponins until downtrending, post operative troponins as noted above. -TTE at this time will not change acute management. - unlikely ACS as discussed above. 4. CAD s/p CABG - continue home medications. 5. DOREEN on CKD stage III - Slight bump today likely in setting of hypotension from anesthesia. Continue to follow, will hold lasix today. - creatinine 2.4 today, baseline around 1.8. 6. HTN - continue home medications, hold cheli inhibition prior to surgery. Resume after. 7. HLD - continue home statin 8. NIDDM - NANCI, if elevated sugars will start basal therapy. 9. BPH - continue home medications. 10. Hyponatremia, acute - Na trended to 125 today, Urine Na is <5 consistent with hypovolemic etiology. Given HF, encouraged oral intake today rather that IV fluid boluses. If continues to downtrend will need slow fluids. Code: Full, surrogate is patient's DVT: SCDs. hold chemical ppx prior to surgical interventions, normally on full dose AC Dispo: inpatient, will transfer to SNF when sodium improves, probable in the next 1-2 days. I have utilized all available immediate resources to obtain, update, or review the patient's current medications. COVID-19 COVID-19 status: Negative Time Spent With Patient Critical Care time: I spent a total of [] minutes of critical care time on this patient's care today; this time is exclusive of procedural time.
--- NOTE | 2022-06-01 13:20 | PT.IPTN ---
Current Diagnoses Stress fracture, hip, unspecified, initial encounter for fracture (05/28/22) Presence of unspecified artificial hip joint (05/28/22) Surgery Performed Operation Date: 05/29/22 15:30 Actual Procedures p Hip Hemiarthroplasty(Right) - Chinmay Lobo MD Physical Therapy Treatment Note M2 PT-IP Current Condition Start: 05/30/22 12:58 Freq: NEEDED Status: Active Protocol: Document 05/30/22 11:15 AB (Rec: 05/30/22 13:09 AB [id number]) Physical Therapy Current Condition Current Condition Evaluation Date 05/30/22 Treatment Diagnosis R femoral neck fx s/p R hip hemiarthroplasty; difficulty in walking Onset Date 05/28/22 M3 PT-IP Subjective Start: 05/30/22 12:58 Freq: NEEDED Status: Active Protocol: Document 06/01/22 12:56 KS (Rec: 06/01/22 13:41 KS [id number]) Subjective Physical Therapy Visit Type Type Treatment Note Visit Start Time 12:56 Visit Stop Time 13:20 Total Visit Minutes 24 Number of ESTIMATOR PRINTING Visits 5 Physical Therapy Visit Comments Patient Comments Agreeable to PT M4 PT-IP Mobility and Gait Start: 05/30/22 12:58 Freq: NEEDED Status: Active Protocol: Document 06/01/22 12:56 KS (Rec: 06/01/22 13:41 KS [id number]) PT-Bed Mobility Assessment Scooting Scooting to Edge of Bed Minimal Assistance PT-Transfer Assessment Sit to and From Stand Sit to and from Stand Maximum Assistance,1 Person Assistance,Use of Upper Extremities Equipment Transfer Assistive Device Gait Belt,Front Wheeled Walker Orthotic/Prosthetic Devices or Brace: No Transfers Transfer Destination Bed Transfer Technique Pt ambulated Transfer Ability Level of Assist Maximum Assistance,1 Person Assistance,Use of Upper Extremities Comments Mobility Comments Pt in chair upon arrival. Min A and cues for scooting EOC. Pt able to recall 2/3 precautions, still w/ difficulty remembering no IR. Required Max A and cues for sit<>Stand w/ FWW, had slightly improved intial standing balance/less posterior lean. Pt initally wanting to walk further but reported increased fatigue upon standing. Ambulated ~8 ft to bed w/ FWW and Mod A w/ cues for step sequencing and FWW management. Mod A and cues for stand<>sit/slow descent and Max A for sit<>sup for LE elevation back into bed. Pt reported fatigue and requests nap. Left in bed w/ alarm on and all needs in reach. Gait Assessment Gait Gait Assistance Required: Moderate Assistance,1 Person Assist Distance (Feet) 8 Able to Maintain Weight Bearing Status Yes During Gait Assistive Devices Assistive Device Gait Belt,Front Wheeled Walker Orthotic/Prosthetic Devices or Brace: No Gait Deviations General Gait Pattern Antalgic,Decreased Stride Length,Decreased Feet Clearance,Step-to Gait Factors Limiting Gait Function Factors Limiting Gait Function Decreased Activity Tolerance, Decreased Strength, Incoordination,Limited Range of Motion,Pain,Poor Balance, Poor Safety Awareness Comments Gait Comments Please refer to mobility section for details. PT-Balance Assessment Sitting Balance and Reactions Static Sitting Balance Ability Good Dynamic Sitting Balance Ability Good Standing Balance and Reactions Static Standing Balance Ability Fair Dynamic Standing Balance Ability Fair Device Used FWW M5 PT-IP Objective Assessments Start: 05/30/22 12:58 Freq: NEEDED Status: Active Protocol: Document 05/30/22 11:15 AB (Rec: 05/30/22 13:09 AB [id number]) Orientation Orientation/Cognition Level of Alertness Confusional State Orientation Name Language Function Ability Hard of Hearing Memory Description Short Term Impaired Gross Range of Motion Lower Extremity ROM Assessment Within Functional Limits Strength Lower Extremity Strength Assessment Right Impaired Hip 3+/5 Knee 4-/5 Sensation Assessment Sensation Gross Sensation WNL Muscle Tone Muscle Tone WNL Yes M6 PT-IP Treatment Start: 05/30/22 12:58 Freq: NEEDED Status: Active Protocol: Document 06/01/22 12:56 KS (Rec: 06/01/22 13:41 KS [id number]) Physical Therapy Treatment Education Education Provided Precautions,Weight Bearing Status,Post-Op Packet,Safety M7 PT-IP Assessment and Plan Start: 05/30/22 12:58 Freq: NEEDED Status: Active Protocol: Document 06/01/22 12:56 KS (Rec: 06/01/22 13:41 KS [id number]) PT Summary Assessment and Plan Potential Rehabilitation Potential Fair Summary Impairments Pain,ROM,Strength,Balance, Coordination,Sensation,Tone, Cognition,Bed Mobility, Transfers,Gait,Activity Tolerance Progress Towards Goals Progressing Toward Goals,Slow Progress due to Activity Tolerance Assessment Summary Able to perform sit<>stand and short distance ambulation w/ 1 PA this PM, but had decreased tolerance for activity and still requires Max A for sit<>stand and max cues for all tasks. Pt has poor balance, low tolerance for activity, weakness, and is at increased risk for falls . He will require SNF to improve strength and functional mobility. Goals Bed Mobility Goal Minimal Assistance Transfer Goal Minimal Assistance,Front Wheeled Walker Gait Goal Minimal Assistance,Front Wheel Walker Gait Distance 50 Other Goals improve bed mobility, transfers using fWW and ambulation using FWW 100 ft SBA Days to Meet Goals 10 Frequency of Treatment Frequency Of Treatment Twice a Day Treatment Plan Physical Therapy Treatment Plan Bed Mobility Training,Transfer Training,Gait Training, Therapeutic Exercise,Balance Retraining,Post Op Education, Discharge Planning,Hot or Cold Pack,Neuromuscular Re-ed, Coordination Retraining,Manual Therapy Precautions Posterior Hip Precautions No Hip Flexion > 90 degrees,No Hip Internal Rotation,No Hip Adduction Weight Bearing Status Weight Bearing Status Weight Bear as Tolerated Allowed Weight Bearing Amount (enter % RLE WBAT or #) (%) Recommendations To Nursing Amount of Assist Needed 2 Person Assist Discharge Recommendations PT Discharge Recommendations SNF Rehab Transportation Needs at Discharge Wheelchair/Cabulance
--- NOTE | 2022-06-01 15:49 | CM.DPNOTE ---
DCP Note Michelle at [facility]- unsure patient's insurance will auth because [facility] is not in network. December will attempt auth, as patient and family have placed local [facility] as their first choice Spoke bedside with patient, spouse and son Jeronimo (visiting from out of state), explained insurance as a barrier. Spouse Jacque requests continued attempt at [facility] and referral to [facility]; spouse has doubts about [facility] because there is a exchange engineer of administrators currently at [facility] Discussed what to expect when patient is medically stable for discharge; if there is a SNF available to admit and an auth in place, patient will be expected to discharge in order to begin his rehab; family stated understanding CM team following closely for coordination JW
[2022-06-01] MEDS: allopurinoL 100 MG TABLET PO (16:05)
[2022-06-01 18:03] LABS: BUN Creatinine Ratio 44.6 (6-22); Blood Urea Nitrogen 90 mg/dL (9-20); Calcium 9.7 mg/dL (8.4-10.2); Carbon Dioxide 22 mmol/L (22-32); Chloride 91 mmol/L (98-107); Estimated Glomerular Filt Rate 31 mL/min (>60); Glucose 125 mg/dL (80-110); HEMOLYSIS < 15 (0-50); Potassium 4.3 mmol/L (3.4-5.1); Sodium 127 mmol/L (137-145)
[2022-06-01] MEDS: SENNOSIDES 8.6 MG TABLET 17.2 MG PO (21:10)
[2022-06-01] MEDS: FINASTERIDE 5 MG TABLET 2.5 MG PO (21:10)
[2022-06-02] VITALS (7 sets, daily range): BP systolic 108–133; BP diastolic 57–66; PULSE 78–83; RESP 16–20; TEMP 36.3–37.2; O2SAT 94–99
[2022-06-02] MEDS: MELATONIN 3 MG TABLET 6 MG PO ×2 (00:47→20:44)
[2022-06-02] MEDS: HYDROMORPHONE 2 MG TABLET PO ×2 (00:47→21:44)
[2022-06-02] MEDS: THYROID, PORK 30 MG TABLET 60 MG PO (05:08)
[2022-06-02] MEDS: ACETAMINOPHEN 325 MG TABLET 650 MG PO ×2 (05:08→17:44)
[2022-06-02 08:24] LABS: Blood Urea Nitrogen 90 mg/dL (9-20); Calcium 9.7 mg/dL (8.4-10.2); Carbon Dioxide 23 mmol/L (22-32); Chloride 97 mmol/L (98-107); Estimated Glomerular Filt Rate 38 mL/min (>60); Glucose 114 mg/dL (80-110); HEMOLYSIS < 15 (0-50); Potassium 4.2 mmol/L (3.4-5.1); Sodium 129 mmol/L (137-145)
[2022-06-02] MEDS: allopurinoL 100 MG TABLET PO (08:51)
[2022-06-02] MEDS: DOCUSATE 100 MG CAPSULE PO ×2 (08:52→20:42)
[2022-06-02] MEDS: polyethylene glycoL 3350 17 GM POWD.PACK PO (08:52)
[2022-06-02] MEDS: FERROUS SULFATE 325 MG TABLET PO (08:52)
[2022-06-02] MEDS: APIXABAN 5 MG TABLET 2.5 MG PO ×2 (08:53→20:42)
--- NOTE | 2022-06-02 09:27 | PT.IPTN ---
Current Diagnoses Stress fracture, hip, unspecified, initial encounter for fracture (05/28/22) Presence of unspecified artificial hip joint (05/28/22) Surgery Performed Operation Date: 05/29/22 15:30 Actual Procedures p Hip Hemiarthroplasty(Right) - Chinmay Lobo MD Physical Therapy Treatment Note M2 PT-IP Current Condition Start: 05/30/22 12:58 Freq: NEEDED Status: Active Protocol: Document 05/30/22 11:15 AB (Rec: 05/30/22 13:09 AB [id number]) Physical Therapy Current Condition Current Condition Evaluation Date 05/30/22 Treatment Diagnosis R femoral neck fx s/p R hip hemiarthroplasty; difficulty in walking Onset Date 05/28/22 M3 PT-IP Subjective Start: 05/30/22 12:58 Freq: NEEDED Status: Active Protocol: Document 06/02/22 09:27 AW (Rec: 06/02/22 09:38 AW [id number]) Subjective Physical Therapy Visit Type Type Treatment Note Visit Start Time 09:01 Visit Stop Time 09:27 Total Visit Minutes 26 Number of SUPPLY CATALOGUER Visits 0 Physical Therapy Visit Comments Patient Comments I think I might need to use the commode. Therapy Pain Assessment Pain When Pain Assessed During Mobility Pain Present Pain Present Pain Reported Location Right Hip Scale Used not quantified but increases with weightbearing M4 PT-IP Mobility and Gait Start: 05/30/22 12:58 Freq: NEEDED Status: Active Protocol: Document 06/02/22 09:27 AW (Rec: 06/02/22 09:38 AW [id number]) PT-Bed Mobility Assessment Supine to Sit Supine to Sit Contact Guard Assistance,1 Person Assistance,Head of Bed Elevated Scooting Scooting to Edge of Bed Contact Guard Assistance PT-Transfer Assessment Sit to and From Stand Sit to and from Stand Moderate Assistance,Maximum Assistance,1 Person Assistance ,Use of Upper Extremities Equipment Transfer Assistive Device Gait Belt,Front Wheeled Walker Orthotic/Prosthetic Devices or Brace: No Transfers Transfer Destination Chair,Bedside Commode Transfer Technique amb with FWW Transfer Ability Level of Assist Moderate Assistance,Maximum Assistance,1 Person Assistance ,Use of Upper Extremities Comments Mobility Comments Pt was sitting up in the bed as PT arrived. SpO2 93% on room air. He independently recalled 3/3 precautions. CGA to sit up EOB and scoot forward to feet flat on the floor. Pt stood with mod A and cues, using FWW to transfer to the commode. He needed max A to stand from the commode as nurse provided assist for pericare and briefs management . Pt walked 6 feet to the chair with mod A using FWW and sat on the chair. Mod A for controlled sit. Pt was able to position himself independently. Pt was left with call light in reach. BP 108/53 HR 82 SpO2 95% RA at end of session. Gait Assessment Gait Gait Assistance Required: Moderate Assistance,1 Person Assist Distance (Feet) 6 Able to Maintain Weight Bearing Status Yes During Gait Assistive Devices Assistive Device Gait Belt,Front Wheeled Walker Orthotic/Prosthetic Devices or Brace: No Gait Deviations General Gait Pattern Antalgic,Decreased Stride Length,Decreased Feet Clearance,Step-to Gait Factors Limiting Gait Function Factors Limiting Gait Function Decreased Activity Tolerance, Decreased Strength, Incoordination,Limited Range of Motion,Pain,Poor Balance, Poor Safety Awareness Comments Gait Comments Please refer to mobility section for details. PT-Balance Assessment Sitting Balance and Reactions Static Sitting Balance Ability Good Dynamic Sitting Balance Ability Good Standing Balance and Reactions Static Standing Balance Ability Fair Dynamic Standing Balance Ability Fair Device Used FWW M5 PT-IP Objective Assessments Start: 05/30/22 12:58 Freq: NEEDED Status: Active Protocol: Document 05/30/22 11:15 AB (Rec: 05/30/22 13:09 AB [id number]) Orientation Orientation/Cognition Level of Alertness Confusional State Orientation Name Language Function Ability Hard of Hearing Memory Description Short Term Impaired Gross Range of Motion Lower Extremity ROM Assessment Within Functional Limits Strength Lower Extremity Strength Assessment Right Impaired Hip 3+/5 Knee 4-/5 Sensation Assessment Sensation Gross Sensation WNL Muscle Tone Muscle Tone WNL Yes M6 PT-IP Treatment Start: 05/30/22 12:58 Freq: NEEDED Status: Active Protocol: Document 06/02/22 09:27 AW (Rec: 06/02/22 09:38 AW [id number]) Physical Therapy Treatment Education Education Provided Precautions,Weight Bearing Status,Safety Other Treatments Other Treatment Performed Educated pt on diaphragmatic breathing and pelvic tilt to assist with bowel movement M7 PT-IP Assessment and Plan Start: 05/30/22 12:58 Freq: NEEDED Status: Active Protocol: Document 06/02/22 09:27 AW (Rec: 06/02/22 09:38 AW [id number]) PT Summary Assessment and Plan Potential Rehabilitation Potential Fair Summary Impairments Pain,ROM,Strength,Balance, Coordination,Sensation,Tone, Cognition,Bed Mobility, Transfers,Gait,Activity Tolerance Progress Towards Goals Progressing Toward Goals,Slow Progress due to Activity Tolerance Assessment Summary Pt now requiring mod to max assist of one person for transfers and short distance gait with FWW. He remains limited by poor activity tolerance and SOB with minimal activity but VS were stable pre and post treatment this AM . Continue to recommend SNF rehab to improve strength and functional mobility. Goals Bed Mobility Goal Minimal Assistance Transfer Goal Minimal Assistance,Front Wheeled Walker Gait Goal Minimal Assistance,Front Wheel Walker Gait Distance 50 Other Goals improve bed mobility, transfers using fWW and ambulation using FWW 100 ft SBA Days to Meet Goals 10 Frequency of Treatment Frequency Of Treatment Twice a Day Treatment Plan Physical Therapy Treatment Plan Bed Mobility Training,Transfer Training,Gait Training, Therapeutic Exercise,Balance Retraining,Post Op Education, Discharge Planning,Hot or Cold Pack,Neuromuscular Re-ed, Coordination Retraining,Manual Therapy Precautions Posterior Hip Precautions No Hip Flexion > 90 degrees,No Hip Internal Rotation,No Hip Adduction Weight Bearing Status Weight Bearing Status Weight Bear as Tolerated Allowed Weight Bearing Amount (enter % RLE WBAT or #) (%) Recommendations To Nursing Amount of Assist Needed 1 Person Assist,2 Person Assist Discharge Recommendations PT Discharge Recommendations SNF Rehab Transportation Needs at Discharge Wheelchair/Cabulance
--- NOTE | 2022-06-02 12:58 | CM.DPC ---
DCP SNF planning Per MD, pt could be medically stable to d/c to SNF today but JULIAN confirmed that [facility] who obtained insurance auth cannot accept until tomorrow Mon and JULIAN called backup SNF [facility] and they also cannot accept until tomorrow but [facility] has submitted for auth to see if [facility]AMP[facility] would auth their facility. JULIAN met bedside with pt, spouse, and son and son confirms he is flying back to [place] today but pt's spouse's brother is flying in to stay with spouse and assist while pt in SNF. Family confirms they toured [facility] and preference is [facility] due to location and spouse not driving as well as [facility] systems administrator leaving [facility] this weekend and interim manager global communications will be in place. JULIAN called [facility] and updated on above and they are willing to kindly cancel their auth and notify ENRIQUE bellamy of the request for change of auth to [facility]. SW updated family that plan is d/c to SNF by tomorrow Mon as pt medically stable and they acknowledge understanding. Plan: JULIAN to follow for [facility] auth request for SNF tomorrow straight away in the AM. SANDRA Edmonds
--- NOTE | 2022-06-02 13:48 | PT.IPTN ---
Current Diagnoses Stress fracture, hip, unspecified, initial encounter for fracture (05/28/22) Presence of unspecified artificial hip joint (05/28/22) Surgery Performed Operation Date: 05/29/22 15:30 Actual Procedures p Hip Hemiarthroplasty(Right) - Chinmay Lobo MD Physical Therapy Treatment Note M2 PT-IP Current Condition Start: 05/30/22 12:58 Freq: NEEDED Status: Active Protocol: Document 05/30/22 11:15 AB (Rec: 05/30/22 13:09 AB [id number]) Physical Therapy Current Condition Current Condition Evaluation Date 05/30/22 Treatment Diagnosis R femoral neck fx s/p R hip hemiarthroplasty; difficulty in walking Onset Date 05/28/22 M3 PT-IP Subjective Start: 05/30/22 12:58 Freq: NEEDED Status: Active Protocol: Document 06/02/22 13:48 AW (Rec: 06/02/22 14:05 AW [id number]) Subjective Physical Therapy Visit Type Type Treatment Note Visit Start Time 13:25 Visit Stop Time 13:45 Total Visit Minutes 20 Number of BENZENE WORKER Visits 0 Physical Therapy Visit Comments Patient Comments Pt would like to try to walk in the hallway. Therapy Pain Assessment Pain When Pain Assessed During Mobility Pain Present Pain Present Denied Pain M4 PT-IP Mobility and Gait Start: 05/30/22 12:58 Freq: NEEDED Status: Active Protocol: Document 06/02/22 13:48 AW (Rec: 06/02/22 14:05 AW [id number]) PT-Bed Mobility Assessment Sit to Supine Sit to Supine Minimal Assistance,1 Person Assistance PT-Transfer Assessment Sit to and From Stand Sit to and from Stand Moderate Assistance,1 Person Assistance,Use of Upper Extremities Equipment Transfer Assistive Device Gait Belt,Front Wheeled Walker Orthotic/Prosthetic Devices or Brace: No Transfers Transfer Destination Bed Transfer Technique amb with FWW Transfer Ability Level of Assist Moderate Assistance,1 Person Assistance,Use of Upper Extremities Comments Mobility Comments As PT arrived, pt was standing next to the chair with NAC assisting to use the urinal. CGA/min A balance assist was required for this task. Standing tolerance was good but pt requested a seated rest break before ambulating. Mod A up and down from the chair. Once up again, pt agreed to ambulate with chair follow. Using FWW, pt walked 5 feet with min A and chair follow. Pt felt good on his feet and did not need chair follow so he continued to walk into the hallway. He needed cues for hip precautions during turns and min A for walker management. On return to the room, pt requested return to bed. He sat EOB and needed min A to elevate his legs to the bed. Pt was positioned with call light and all needs in reach. Gait Assessment Gait Gait Assistance Required: Minimum Assistance,1 Person Assist Distance (Feet) 50 Able to Maintain Weight Bearing Status Yes During Gait Assistive Devices Assistive Device Gait Belt,Front Wheeled Walker Orthotic/Prosthetic Devices or Brace: No Gait Deviations General Gait Pattern Antalgic,Decreased Stride Length,Decreased Feet Clearance,Step-to Gait Factors Limiting Gait Function Factors Limiting Gait Function Decreased Activity Tolerance, Decreased Strength,Limited Range of Motion,Pain,Poor Balance,Poor Safety Awareness Comments Gait Comments Please refer to mobility section for details. PT-Balance Assessment Sitting Balance and Reactions Static Sitting Balance Ability Good Dynamic Sitting Balance Ability Good Standing Balance and Reactions Static Standing Balance Ability Fair Dynamic Standing Balance Ability Fair Device Used FWW M5 PT-IP Objective Assessments Start: 05/30/22 12:58 Freq: NEEDED Status: Active Protocol: Document 05/30/22 11:15 AB (Rec: 05/30/22 13:09 AB [id number]) Orientation Orientation/Cognition Level of Alertness Confusional State Orientation Name Language Function Ability Hard of Hearing Memory Description Short Term Impaired Gross Range of Motion Lower Extremity ROM Assessment Within Functional Limits Strength Lower Extremity Strength Assessment Right Impaired Hip 3+/5 Knee 4-/5 Sensation Assessment Sensation Gross Sensation WNL Muscle Tone Muscle Tone WNL Yes M6 PT-IP Treatment Start: 05/30/22 12:58 Freq: NEEDED Status: Active Protocol: Document 06/02/22 13:48 AW (Rec: 06/02/22 14:05 AW [id number]) Physical Therapy Treatment Education Education Provided Precautions,Weight Bearing Status,Safety M7 PT-IP Assessment and Plan Start: 05/30/22 12:58 Freq: NEEDED Status: Active Protocol: Document 06/02/22 13:48 AW (Rec: 06/02/22 14:05 AW [id number]) PT Summary Assessment and Plan Potential Rehabilitation Potential Good Summary Impairments Pain,ROM,Strength,Balance, Coordination,Sensation,Tone, Cognition,Bed Mobility, Transfers,Gait,Activity Tolerance Progress Towards Goals Progressing Toward Goals Assessment Summary Pt's mobility improved significantly this afternoon. He needed min/mod A for sit to stand, intermittent cues for hip precautions while turning with FWW, and min A for 50 feet gait with FWW. Pt would benefit from SNF rehab to improve strength and mobility independence. Goals Bed Mobility Goal Minimal Assistance Transfer Goal Minimal Assistance,Front Wheeled Walker Gait Goal Minimal Assistance,Front Wheel Walker Gait Distance 50 Other Goals improve bed mobility, transfers using fWW and ambulation using FWW 100 ft SBA Days to Meet Goals 10 Frequency of Treatment Frequency Of Treatment Twice a Day Treatment Plan Physical Therapy Treatment Plan Bed Mobility Training,Transfer Training,Gait Training, Therapeutic Exercise,Balance Retraining,Post Op Education, Discharge Planning,Hot or Cold Pack,Neuromuscular Re-ed, Coordination Retraining,Manual Therapy Other Recommendations and Next Treatment progress gait with FWW; hip Focus hinge/sit to stand from elevated surface Precautions Posterior Hip Precautions No Hip Flexion > 90 degrees,No Hip Internal Rotation,No Hip Adduction Weight Bearing Status Weight Bearing Status Weight Bear as Tolerated Allowed Weight Bearing Amount (enter % RLE WBAT or #) (%) Recommendations To Nursing Amount of Assist Needed 1 Person Assist Discharge Recommendations PT Discharge Recommendations SNF Rehab Transportation Needs at Discharge Wheelchair/Cabulance
[2022-06-02] MEDS: INSULIN LISPRO 100 UNIT/ML 3ML VIAL SUBCUT (16:42)
--- NOTE | 2022-06-02 18:01 | PM.PN.1 ---
Subjective Subjective Date Patient Seen: 06/02/22 Time Patient Seen: 08:00 Interval history: He has had constipation. Otherwise he feels well and his pain is controlled. Exam Vital Signs (past 8 hours): - 06/02/22 14:23 06/02/22 16:52 Temperature 98 F 97.4 F L Pulse Rate 78 82 Respiratory Rate 17 20 Blood Pressure 108/57 L 133/66 Pulse Oximetry 96 97 Oxygen Flow Rate 0 0 Oxygen Delivery Method Room Air Oxygen Flow Rate 0 Narrative Exam Narrative: GEN: no acute distress CV: regular rate and rhythm EXT: warm and well perfused, no significant pain with palpation Objective Labs Result Diagrams: 05/31/22 04:29 06/02/22 08:10 Labs: Laboratory Results - last 24 hr 06/02/22 08:10 Sodium 129 L Potassium 4.2 Chloride 97 L Carbon Dioxide 23 BUN 90 H Creatinine 1.73 H Estimated GFR 38 L BUN/Creatinine Ratio 52.0 H Glucose 114 H Calcium 9.7 PFSH Medical History Allergies Aneurysm of right popliteal artery Atrial fibrillation (~2014) BPH (benign prostatic hyperplasia) BPH w urinary obs/LUTS CAD (coronary artery disease), [place] coronary artery Chicken pox Chronic systolic CHF (congestive heart failure), NYHA class 1 Congestive heart failure Coronary heart disease Elevated PSA (~2004) Essential (primary) hypertension Foot pain Ganglion cyst Gout Gout Hearing loss Heart attack Hypertension Low testosterone (~2008) Measles Mixed hyperlipidemia Mumps Osteoporosis Peripheral neuropathy Shoulder pain 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 Wears glasses Surgical History Anesthesia History of back surgery (~2009) History of circumcision 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) History of prostate biopsy History of surgery (~1998) Family History Father Prostate cancer Coronary artery disease Mother Cancer Stroke Social History marital status: number of children: 3 household members: spouse occupational status: previously employed Smoking Status: Never smoker alcohol intake: current substance use type: does not use caffeine: Yes Assessment & Plan Assessment & Plan narrative: 1. Comminuted and displaced R refemoral neck fracture - now s/p surgery - continue pain control - plan for dc to snf 2. Acute on chronic combined systolic and diastolic heart failure, resolved - likely mild volume overload on admission improved with light diuresis, he did desaturate to the mid 80s on room air on the hospital floor. Also possible pain medications / opiates are contributing to respiratory failure as well. - last TTE 08/2021 with EF 30-35%. 3. Myocardial injury - continued to follow troponins until downtrending, -TTE at this time will not change acute management. - unlikely ACS as no chest pain or ishcemic changes on EKG 4. CAD s/p CABG - continue home medications. 5. DOREEN on CKD stage III, improving - creatinine peaked at 2.4, improved to 1.73 6. HTN - continue home medications, hold cheli inhibition prior to surgery. Resume after. 7. HLD - continue home statin 8. NIDDM - NANCI, if elevated sugars will start basal therapy. 9. BPH - continue home medications. 10. Hyponatremia, acute - Na dipped to 125, now improving with stopping lasix and encouraging fluid intake Dispo: patient medically stable for discharge, awaiting acceptance at snf COVID-19 COVID-19 status: Negative Time Spent With Patient Critical Care time: I spent a total of [] minutes of critical care time on this patient's care today; this time is exclusive of procedural time.
[2022-06-02] MEDS: FINASTERIDE 5 MG TABLET 2.5 MG PO (20:40)
[2022-06-02] MEDS: SENNOSIDES 8.6 MG TABLET 17.2 MG PO (20:42)
[2022-06-02] MEDS: carvediloL 3.125 MG TABLET 6.25 MG PO (20:43)
[2022-06-03] VITALS: BP 109/55; PULSE 77; RESP 16; TEMP 36.9; O2SAT 97
--- NOTE | 2022-06-03 00:10 | PC.NURSE ---
Patient states he would like to resume taking his Allopurinol. Will discuss with provider in AM. Patient C/O great L toe pain. States some R hip pain 02/03. CMS + to RLE. Drsg dry and intact to RLE. Patient medicated for pain per EMAR. JITENDRA Shen notified of patient without IV access and currrently no telemetry and no IV scheduled medications. Order received that IV may be left out.
[2022-06-03 04:00] VITALS: BP 133/67; PULSE 80; RESP 18; TEMP 36.8; O2SAT 95
[2022-06-03] MEDS: ACETAMINOPHEN 325 MG TABLET 650 MG PO (06:31)
[2022-06-03] MEDS: THYROID, PORK 30 MG TABLET 60 MG PO (06:47)
--- NOTE | 2022-06-03 07:49 | PM.DS.1 ---
History of Present Illness History of Present Illness Date Patient Seen: 05/28/22 Time Patient Seen: 11:08 Chief complaint: GLF hip pain Narrative: Per admitting provider: 86-year-old male history of diastolic/systolic congestive heart failure EF of 30-35%, CAD w/ CABG, PAD with lower extremity bypass, CKD stage III, hypertension, hyperlipidemia, gout, NIDDM, BPH who presents after a fall in his home. He was up going to the bathroom overnight, he became slightly dizzy when getting up and fell though he did not lose consciousness and he did not hit his head, he landed on his R side and called EMS for help. He has chronic dyspnea on exertion, able to walk about 1 block prior to getting short of breath. Does not think this has been any worse recently than usual, he denies fever, chills, dysuria, nausea, vomiting, or diarrhea. He has some chronic leg swelling also no worse than normal. In the emergency room, his vitals were unremarkable, though upon arrival to the hospital floor his O2 saturations were noted to be around 86% on room air, improved with supplemental oxygen. Imaging showed a Right femoral neck fracture of his hip. Chest XR is compatible with some volume overload and congestion. EKG showed a paced rhythm. Labs were notable for a chronic, stable anemia with Hg 10.3. Creatinine around baseline at 1.98, troponin 0.037, with proBNP of 6210. Covid testing was negative. He was admitted to hospitalist service for further management. Discharge Providers Provider Date of admission: 05/28/22 08:21 Discharge Date: 06/03/22 Primary care physician: Ry Ash MD Consults: 05/28/22 17:40 Consult to Orthopedic Surgery Routine Comment: Consulting Provider: Chinmay Lobo Reason for consultation: R femoral neck fracture 05/29/22 18:27 Consult to Discharge Planning Routine Comment: Consult to Physical Therapy Evaluate & Treat Comment: Physician Instructions: post op ERICK protocol 05/30/22 12:29 Consult to Occupational Therapy Evaluate & Treat Comment: Physician Instructions: Evaluate and treat Discharge provider: Ruddy Ortega MD Summary Hospital Course Discharge Diagnosis: 1. R Femoral neck fracture 2. Acute on chronic systolic CHF 3. Cardiac demand ischemia 4. CAD s/p CABG 5. DOREEN on CKD stage 3. 6. Hypovolemic hyponatremia 7. HTN 8. HL 9. Type 2 DM 10. BPH 11. Afib Hospital Course: Mr. Juarez came in with a right femoral neck fracture and did undergo surgery here in the hospital and did well. He did have a mild CHF exacerbation in the perioperative setting and was diuresed and then developed mild hypovolemic hyponatremia and DOREEN. Diuretics were stopped and with gentle fluid resuscitation he improved. On day of discharge he was doing well, pain was well controlled. Discharged creatinine was 1.7 which was near baseline and hyponatremia was improving. He is discharged to SNF for PT. He should follow up with orthopedic surgery in 10-14 days. He is already on eliquis which can be continue for dvt prophylaxis. Exam Vital Signs (past 8 hours): - 06/03/22 00:00 06/03/22 04:00 Temperature 98.4 F 98.2 F Pulse Rate 77 80 Respiratory Rate 16 18 Blood Pressure 109/55 L 133/67 Pulse Oximetry 97 95 Oxygen Delivery Method Room Air Oxygen Flow Rate 0 Narrative Exam Narrative: GEN: no acute distress CV: regular rate and rhythm EXT: warm and well perfused, no significant pain with palpation Objective Labs Result Diagrams: 05/31/22 04:29 06/02/22 08:10 Labs: Laboratory Results - last 24 hr 06/02/22 08:10 Sodium 129 L Potassium 4.2 Chloride 97 L Carbon Dioxide 23 BUN 90 H Creatinine 1.73 H Estimated GFR 38 L BUN/Creatinine Ratio 52.0 H Glucose 114 H Calcium 9.7 PFSH Medical History Allergies Aneurysm of right popliteal artery Atrial fibrillation (~2014) BPH (benign prostatic hyperplasia) BPH w urinary obs/LUTS CAD (coronary artery disease), [place] coronary artery Chicken pox Chronic systolic CHF (congestive heart failure), NYHA class 1 Congestive heart failure Coronary heart disease Elevated PSA (~2004) Essential (primary) hypertension Foot pain Ganglion cyst Gout Gout Hearing loss Heart attack Hypertension Low testosterone (~2008) Measles Mixed hyperlipidemia Mumps Osteoporosis Peripheral neuropathy Shoulder pain 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 Wears glasses Surgical History Anesthesia History of back surgery (~2009) History of circumcision 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) History of prostate biopsy History of surgery (~1998) Family History Father Prostate cancer Coronary artery disease Mother Cancer Stroke Social History marital status: number of children: 3 household members: spouse occupational status: previously employed Smoking Status: Never smoker alcohol intake: current substance use type: does not use caffeine: Yes Discharge Plan Discharge Plan Patient Disposition: SNF Provider Discharge Comment: Mr. Juarez came to the hospital with a hip fracture. Transfer to SNF for PT. Discharge orders & Medications Prescriptions: New docusate sodium 100 mg Capsule 100 mg PO BID Qty: 10 0RF polyethylene glycol 3350 17 gram Powder In Packet 17 g PO DAILY PRN (Reason: Constipation) Qty: 10 0RF sennosides [senna] 8.6 mg Tablet 17.2 mg PO BEDTIME Qty: 10 0RF Continued testosterone 50 mg/5 gram (1 %) gel 50 mg transdermal DAILY Eliquis 2.5 mg tablet 2.5 mg PO BID probenecid 500 mg tablet 500 mg PO DAILY prasterone (dhea) [DHEA] 25 mg capsule 25 mg PO .weekly ascorbic acid (vitamin C) 1,000 mg tablet 1 g PO BID coenzyme Q10 [CoQ-10] 100 mg capsule 100 mg PO DAILY mecobalamin (vitamin B12) 5,000 mcg lozenge 100 mcg PO BEDTIME Rx Instructions: allow to dissolve in mouth OR may chew lightly before swallowing resveratrol 100 mg capsule 100 mg PO BID letrozole 2.5 mg tablet 2.5 mg PO 3XW torsemide 20 mg tablet 20 mg PO 6XD allopurinol 100 mg tablet 100 mg PO DAILY Label Comments: TAKE 1 TABLET BY MOUTH ONCE DAILY cyanocobalamin (vitamin B-12) 1,000 mcg/mL solution 1,000 mcg IM QWEEK Label Comments: INJECT 1 ML IN THE MUSCLE ONCE WEEKLY. ferrous sulfate [FeroSul] 325 mg (65 mg iron) tablet 325 mg PO DAILY thyroid (pork) [[employer] Thyroid] 60 mg tablet 60 mg PO DAILY Label Comments: TAKE 1 TABLET BY MOUTH EVERY MORNING 15 TO 30 MINUTES BEFORE EATING valsartan 40 mg tablet 40 mg PO DAILY Label Comments: TAKE 1 TABLET BY MOUTH DAILY glipizide 2.5 mg tablet extended release 24hr 2.5 mg PO DAILY Label Comments: TAKE 1 TABLET BY MOUTH ONCE A DAY carvedilol 6.25 mg tablet 6.25 mg PO BID Label Comments: TAKE 1 TABLET BY MOUTH TWICE DAILY finasteride 5 mg Tablet 2.5 mg PO BEDTIME oxycodone 5 mg tablet 5 mg PO BID PRN (Reason: pain) Qty: 10 0RF Follow up/Referrals: Ry Ash MD [Primary Care Provider] - Chinmay Lobo MD [Physician] - 2 Weeks (Follow up w/ PA in Dr Lobo's office around 10 days for wound check. If this is too cumbersome, can simply remove dressing on 06/12/2022 and if incision looks benign, can follow up w/ Dr Lobo in 6 weeks for repeat imaging.) Diet/Activity/Treatments Diet: Regular and Low-sodium Activity: WBAT to right leg. Posterior hip precautions. Skin/Wound/Dressing Care Dressing: May shower with Aquacel dressing in place. Leave dressing on until follow up appointment or remove on 06/12/2022, whichever comes first. No bathing or otherwise soaking incision; do not apply any creams, lotions, or ointments to incision until completely healed. [facility] Reason for rehabilitation: Post-operative therapy Rehab type: Physical therapy and Occupational therapy Discharge Data Primary Care Provider: Ry Ash V
[2022-06-03 08:00] VITALS: BP 105/57; PULSE 81; RESP 17; TEMP 36.7; O2SAT 97
--- NOTE | 2022-06-03 08:14 | CM.DPC ---
DCP Discharge SNF Per MD, pt medically stable to d/c to SNF today and no identified barriers to discharge. SW called [facility] and they confirm they can accept if they get auth from [place]. SW received a call from [facility] ([phone] option #8) stating that since pt has an accepting facility that is contracted then [facility] cannot auth [facility] which is not in network. SW called [facility] backup of [facility] to determine if they can accept pt today otherwise it will be [facility] at d/c today. [facility] reviewing to determine if they have an appropriate bed based on pt's COVID vax status and currently they do not have a room for pt to quarantine in since his last COVID booster was Jul and not within 4 months. JULIAN called spouse and updated on [facility] not being auth'd and [facility] not an option and spouse [facility]able [facility]. JULIAN faxed d/c packet to [facility] to review (PASRR, med list, script, PASRR, orders) to [facility] to review and awaiting time for transport. JULIAN called [facility] and updated on accepting SNF facility for auth is back to [facility] and being updated and approved for d/c today. JULIAN updated RN, seat builder, and [employer]. Plan: Patient to d/c to [facility] today via facility van at around 1100 prior to safe return home with spouse. SANDRA Edmonds
[2022-06-03 08:18] VITALS: BP 105/57; PULSE 80
[2022-06-03] MEDS: DOCUSATE 100 MG CAPSULE PO (08:18)
[2022-06-03] MEDS: FERROUS SULFATE 325 MG TABLET PO (08:18)
[2022-06-03] MEDS: carvediloL 3.125 MG TABLET 6.25 MG PO (08:18)
[2022-06-03] MEDS: allopurinoL 100 MG TABLET PO (08:18)
[2022-06-03] MEDS: polyethylene glycoL 3350 17 GM POWD.PACK PO (08:18)
[2022-06-03] MEDS: APIXABAN 5 MG TABLET 2.5 MG PO (08:19)
[2022-06-03 09:05] LABS: COVID19 -Nasal RAPID Negative (Negative)
--- NOTE | 2022-06-03 09:52 | OT.IP.TRT ---
Current Diagnoses Stress fracture, hip, unspecified, initial encounter for fracture (05/28/22) Presence of unspecified artificial hip joint (05/28/22) Surgery Performed Operation Date: 05/29/22 15:30 Actual Procedures p Hip Hemiarthroplasty(Right) - Chinmay Lobo MD Occupational Therapy Treatment Note M2 OT-IP Current Condition Start: 05/30/22 14:21 Freq: Status: Active Protocol: Document 05/30/22 14:15 [facility] (Rec: 05/30/22 15:48 [facility] [id number]) Occupational Therapy Current Condition Current Condition Evaluation Date 05/30/22 Treatment Diagnosis S/p Right femoral neck fracture Post Operative Precautions Posterior Hip Precautions No Hip Flexion > 90 degrees,No Hip Internal Rotation,No Hip Adduction M3 OT- IP Subjective and Pain Start: 05/30/22 14:21 Freq: Status: Active Protocol: Document 06/03/22 09:52 [facility] (Rec: 06/03/22 10:00 [facility] [id number]) OT- Subjective Occupational Therapy Visit Type Type Treatment Note Visit Start Time 08:53 Visit Stop Time 09:50 Total Visit Minutes 57 Occupational Therapy Visit Comments Patient Comments Pt agreed to shower and also wanting to have a bowel movement. Patient/Caregiver Goals To go to skilled rehab and get better so able to go home. OT Pain Assessment Pain When Pain Assessed At Rest Pain Present Pain Present Denied Pain M4 OT- IP ADL's Start: 05/30/22 14:21 Freq: Status: Active Protocol: Document 06/03/22 09:52 [facility] (Rec: 06/03/22 10:00 [facility] [id number]) OT [id number] Comments OT Self-Feeding Comments Not at meal time. OT ADL-Grooming General Evaluation Grooming Ability Independent Areas Needing Assistance Retrieving/Set-up of Grooming Items Comments OT Grooming Comments set-up assist while seated OT ADL-Oral Care General Eval Oral Care Ability Independent Areas of Assistance Retrieving/Set-Up of Items Comments Oral Care Comments while seated OT ADL-Dressing General Eval Lower Body Dressing Ability Minimal Assistance Comments OT Dressing Comments HARRY to help use the drum tender so able to raya/doff his brief and take off his socks. Educated to pt best to dress his right side first and take out last in order to best follow his hip precautions. OT ADL-Toileting General Evaluation Toileting Ability Minimal Assistance Areas Needing Assistance Perform Perineal Hygiene Comments OT Toileting Comments Pt will need assist for completeness to wipe. Educated best to stand to wipe in order to follow his hip precautions. OT ADL-Bathing Bathing Type Bathing Type Shower General Evaluation Bathing Ability Moderate Assistance,Maximal Assistance Areas Needing Assistance Wash/Dry Back,Wash/Dry Lower Extremities Comments OT Bathing Comments Pt suggested at home to get a long handled brush or have his assist for showering needs. Pt needing assist with his back, lower legs and hair at this time. M5 OT- IP IADL's Start: 05/30/22 14:21 Freq: Status: Active Protocol: Document 05/30/22 14:15 [facility] (Rec: 05/30/22 15:48 [facility] [id number]) OT-Instrumental Activities of Daily Living Medication Management Medication Management Comments Pt states able to do on his own prior. Money Management Money Management Comments Pt able to do prior. Meal Preparation Meal Preparation Caregiver Provides Assist Latrine Cleaner Latrine Cleaner Caregiver Provides Assist M6 OT- IP Functional Cognition Start: 05/30/22 14:21 Freq: Status: Active Protocol: Document 06/03/22 09:52 [facility] (Rec: 06/03/22 10:00 [facility] [id number]) Cognitive Factors Limiting Selfcare Function Cognitive Comments Cognitive Assessment Comments Pt still needing cues to recall his hip precautions. At times needing cues to help for safety awareness of hands and RLE placement when coming up or sitting down. M7 OT- IP Mobility and Balance Start: 05/30/22 14:21 Freq: Status: Active Protocol: Document 06/03/22 09:52 [facility] (Rec: 06/03/22 10:00 [facility] [id number]) OT-Transfer Assessment Sit to and From Stand Sit to and from Stand Minimal Assistance,Moderate Assistance,1 Person Assistance Comments Mobility Comments Pt needing form HARRY to MODA to stand to FWW , once on his feet CGA to HARRY to help step over the threshold of the shower. OT- Balance Assessment Sitting Balance and Reactions Static Sitting Balance Ability Good Dynamic Sitting Balance Ability Good Standing Balance and Reactions Static Standing Balance Ability Fair M8 OT- IP Objective Assessments Start: 05/30/22 14:21 Freq: Status: Active Protocol: Document 05/30/22 14:15 [facility] (Rec: 05/30/22 15:48 [facility] [id number]) OT Gross Range of Motion Upper Extremity Range of Motion Assessment Left Impaired OT Strength Upper Extremity Strength Assessment Left Impaired Comments Strength Comments Limited AROM and strength in LUE due to rotator cuff injury per his . OT-Muscle Tone Assessment Muscle Tone WNL Yes M9 OT- IP Assessment and Plan Start: 05/30/22 14:21 Freq: Status: Active Protocol: Document 06/03/22 09:52 [facility] (Rec: 06/03/22 10:00 [facility] [id number]) OT Summary Assessment and Plan Potential Rehabilitation Potential Good Analytic Complexity at Evaluation Moderate Summary OT Impairments Pain,Balance,Functional Mobility,Grooming,Dressing, Toileting,Bathing,Toilet Transfers,Shower Transfers, Activity Tolerance Progress Towards Goals Progressing Toward Goals Assessment Summary Pt able to tolerate use of toilet to have a bowel movement and then able to shower with assist today. Overall great improvements and looking to go to skilled rehab today. Goals Self-Feeding Goal Independent Grooming Goal Independent Dressing Goal Minimal Assistance Toileting Goal Independent Bathing Goal Standby Assistance Toilet Transfer Goal Independent Shower Transfer Goal Independent Days to Meet Goals 20 Frequency of Treatment Frequency Of Treatment Once a Day Treatment Plan OT Treatment Plan ADL Training,Functional Cognition Training,Functional Mobility,Patient/Family Education,Discharge Planning Discharge Recommendations OT Discharge Recommendations SNF Rehab Transportation Needs at Discharge Wheelchair/Cabulance
--- NOTE | 2022-06-03 10:42 | PC.NURSE ---
Discharge order to SNF received and report called to Brandon at [facility]. Patient agrees with plan of care and has no further questions or concerns at this time. Patient picked up by transport via wheelchair with all his belongings.
== END 2022-06-03 10:55 | DRG 521 ==
LOC: ED 08:18 → AC 08:22 → ICU 09:19 → AC 05-29 16:51 → ICU 05-29 17:07
PROVIDERS: Emergency Medicine; Internal Medicine; Orthopaedic Surgery; Admitting Provider Internal Medicine; Emergency Provider Family Medicine Addiction Medicine; PCP Internal Medicine; Referring Provider Family Medicine Addiction Medicine; Visit Provider Internal Medicine
PROC: 0SRR0JZ Replacement of Right Hip Joint, Femoral Surface with Synthetic Substitute, Open Approach (ICD-10-PCS; CPT 27125; principal; 2022-05-29 15:30)
DX: S72.001A Fracture of unspecified part of neck of right femur, initial encounter for closed fracture (principal); I50.43 Acute on chronic combined systolic (congestive) and diastolic (congestive) heart failure; J96.01 Acute respiratory failure with hypoxia; I13.0 Hypertensive heart and chronic kidney disease with heart failure and stage 1 through stage 4 chronic kidney disease, or unspecified chronic kidney disease; I24.8 Other forms of acute ischemic heart disease; E87.1 Hypo-osmolality and hyponatremia; N17.9 Acute kidney failure, unspecified; I48.91 Unspecified atrial fibrillation; E11.22 Type 2 diabetes mellitus with diabetic chronic kidney disease; I25.10 Atherosclerotic heart disease of native coronary artery without angina pectoris; E78.5 Hyperlipidemia, unspecified; N40.0 Benign prostatic hyperplasia without lower urinary tract symptoms; E86.1 Hypovolemia; N18.30 Chronic kidney disease, stage 3 unspecified; M10.9 Gout, unspecified; I73.9 Peripheral vascular disease, unspecified; D64.9 Anemia, unspecified; W18.30XA Fall on same level, unspecified, initial encounter; Z79.01 Long term (current) use of anticoagulants; Z79.84 Long term (current) use of oral hypoglycemic drugs; Z95.1 Presence of aortocoronary bypass graft
CPT/HCPCS: 36415; 70450; 71045; 72125; 72170; 73502; 80048; 80053; 81001; 82550; 82962; 83690; 83735; 83880; 84300; 84484; 85025; 85610; 85730; 87635; 87797; 93005; 94760; 96374; 97110; 97116; 97163; 97166; 97530; 97535; 99284; C1776; C9803; J0171; J0690; J1170; J1815; J1940; J2405; J3010

== ENCOUNTER → 2022-06-24 14:05 | Outpatient (CLI) | payer MEDICARE, SELFPAY ==
[2022-05-28 12:07] VITALS: BMI 23.8
[2022-06-24 14:37] LABS: Hematocrit 30.6 % (41-53); Hemoglobin 10.3 g/dL (13.5-17.5); Mean Corpuscular HGB Conc 33.5 % (30-36); Mean Corpuscular Hemoglobin 34.3 PG (26-34); Mean Corpuscular Volume 102.3 fL (80-100); Platelet Count 252 X10^3/uL (150-400); Red Blood Cell Count 2.99 X10^6/uL (4.5-5.9); Red Cell Distribution Width 14.8 % (11.6-14.8); White Blood Cell Count 6.6 X10^3/uL (4.5-11.0)
[2022-06-24 15:30] LABS: BUN Creatinine Ratio 30.8 (6-22); Blood Urea Nitrogen 57 mg/dL (9-20); Calcium 10.4 mg/dL (8.4-10.2); Carbon Dioxide 27 mmol/L (22-32); Chloride 92 mmol/L (98-107); Estimated Glomerular Filt Rate 35 mL/min (>60); Glucose 75 mg/dL (80-110); HEMOLYSIS < 15 (0-50); Potassium 4.2 mmol/L (3.4-5.1); Sodium 134 mmol/L (137-145)
== END ==
PROVIDERS: PCP Internal Medicine; Referring Provider Internal Medicine; Visit Provider Internal Medicine
DX: I48.20 Chronic atrial fibrillation, unspecified (principal); I50.22 Chronic systolic (congestive) heart failure
CPT/HCPCS: 36415; 80048; 85027

== ENCOUNTER → 2022-07-03 14:50 | Outpatient (CLI) | payer MEDICARE, SELFPAY ==
[2022-05-28 12:07] VITALS: BMI 23.8
[2022-07-03 16:49] LABS: Hemoglobin A1C% w Est Avg Glu 5.4 % (4.0-6.0)
[2022-07-03 16:58] LABS: BUN Creatinine Ratio 29.1 (6-22); Blood Urea Nitrogen 53 mg/dL (9-20); Calcium 10.7 mg/dL (8.4-10.2); Carbon Dioxide 29 mmol/L (22-32); Chloride 93 mmol/L (98-107); Estimated Glomerular Filt Rate 35 mL/min (>60); Glucose 70 mg/dL (80-110); HEMOLYSIS < 15 (0-50); Potassium 3.4 mmol/L (3.4-5.1); Sodium 136 mmol/L (137-145)
== END ==
PROVIDERS: PCP Internal Medicine; Referring Provider Internal Medicine; Visit Provider Internal Medicine
DX: E11.59 Type 2 diabetes mellitus with other circulatory complications (principal); I50.22 Chronic systolic (congestive) heart failure
CPT/HCPCS: 36415; 80048; 83036

== ENCOUNTER → 2022-09-05 15:45 | Outpatient (CLI) | payer MEDICARE, SELFPAY ==
[2022-05-28 12:07] VITALS: BMI 23.8
--- NOTE | 2022-09-05 15:48 | DI.RAD.S_ITS ---
PROCEDURE: XR SHOULDER RT MIN 2V INDICATIONS: right shoulder pain TECHNIQUE: 3 views of the shoulder were acquired. COMPARISON: None. FINDINGS: Bones: Joint space narrowing and associated osteophytosis of the glenohumeral and acromioclavicular joints. Possible chondrocalcinosis of the acromioclavicular joint. Soft tissues: No suspicious soft tissue calcifications. Other: Increased pulmonary markings of the lungs. Disrupted sternotomy wire, unchanged from prior. IMPRESSION: 1. Moderate acromioclavicular and glenohumeral osteoarthritis. 2. Chondrocalcinosis of the acromioclavicular joint, likely age related. 3. Increased pulmonary markings in the lungs, suggestive of mild interstitial edema. 4. Stable disrupted sternotomy wire. Dictated by: Blake Brooke M.D. on 09/06/2022 at 8:55 Approved by: Blake Brooke M.D. on 09/06/2022 at 8:59
== END ==
PROVIDERS: PCP Internal Medicine; Referring Provider Internal Medicine; Visit Provider Internal Medicine
DX: M19.011 Primary osteoarthritis, right shoulder (principal); M25.511 Pain in right shoulder; R29.6 Repeated falls; M11.211 Other chondrocalcinosis, right shoulder
CPT/HCPCS: 73030

== ENCOUNTER → 2022-10-15 13:41 | Outpatient (CLI) | payer MEDICARE, SELFPAY ==
[2022-05-28 12:07] VITALS: BMI 23.8
[2022-10-15 14:54] LABS: BUN Creatinine Ratio 20.3 (6-22); Blood Urea Nitrogen 24 mg/dL (9-20); Calcium 9.8 mg/dL (8.4-10.2); Carbon Dioxide 24 mmol/L (22-32); Chloride 101 mmol/L (98-107); Estimated Glomerular Filt Rate 59 mL/min (>60); Glucose 84 mg/dL (80-110); HEMOLYSIS 19 (0-50); Potassium 4.4 mmol/L (3.4-5.1); Sodium 134 mmol/L (137-145)
== END ==
PROVIDERS: PCP Internal Medicine; Referring Provider Internal Medicine Cardiovascular Disease; Visit Provider Internal Medicine Cardiovascular Disease
DX: I50.22 Chronic systolic (congestive) heart failure (principal)
CPT/HCPCS: 36415; 80048